=== PATIENT | male | born 1945 | race Caucasian/White ===

== ENCOUNTER 2021-02-21 07:17 | Emergency (ER) | payer BC, SELFPAY ==
[2021-02-21 07:29] VITALS: BP 206/110; PULSE 101; RESP 18; TEMP 36.9; O2SAT 98; BMI 37.3
--- NOTE | 2021-02-21 07:29 | ED_ITS ---
HPI - Male Genitourinary General Chief complaint: Urogenital-Male Stated complaint: URINARY RETENTION Time Seen by Provider: 02/21/21 07:27 Source: patient Mode of arrival: ambulatory Limitations: no limitations History of Present Illness HPI Narrative: 75 yo male with hx of BPH and needing to self cath at home but last episode was 1 year ago - he is not on AC therapy, last void 6 hours ago c/o suprapubic pain and pressure states he has catheters at home he did try but was unsuccessful and he noted blood MD Complaint: other (urinary retention) Onset (ago): hour(s) (6) Duration: constant Location: abdomen Severity: moderate Quality: aching and dull Relieving factors: none Exacerbating factors: none Context: other (BPH and episodes of urinary retention) Associated symptoms: Reports urinary retention Related Data Previous Rx's Medication Instructions Recorded levofloxacin 250 mg PO DAILY 6 Days #6 tab 02/21/21 Allergies Allergy/AdvReac Type Severity Reaction Status Date / Time No Known Allergies Allergy Verified 02/21/21 07:27 Review of Systems Review of Systems: Constitutional : No Weight loss, No Fever, No Chills, No Fatigue, No Malaise ENT/Mouth : No sore throat, No Rhinorrhea Eyes: No Eye Pain, No Swelling, No Redness Cardiovascular : No Chest Pain, No SOB, No Dyspnea on Exertion, No Orthopnea, No Edema, No Palpitations Respiratory : No Cough, No Sputum, No Wheezing Gastrointestinal : No Nausea, No Vomiting, No Diarrhea, No Constipation, pos abdominal Pain, No Hematochezia, No Melena Genitourinary : No Dysuria, No Urinary Frequency, No Hematuria, pos retention Musculoskeletal : No joint pain, No Myalgias, No Joint Swelling Skin : No Skin Lesions, No rash Neuro : No Weakness, No Numbness, No Dizziness, No Headache All other systems reviewed and are negative [facility] Past Medical History Attestation statement: The following information was validated with the patient. Medical History (Updated 02/21/21 @ 14:20 by Layla Barnes DO) BPH (benign prostatic hyperplasia) HTN (hypertension) Urinary retention Social History Social History (Updated 02/21/21 @ 07:30 by Layla Barnes DO) Alcohol intake: never Smoking Status: Never smoker Use of substances other than those prescribed or required for medical reasons: No Advance Directives: No Advance Directives Information Provided: No Physical Exam Vital Signs: Vital Signs: Last Vital Signs Temp 98.5 F 02/21/21 11:09 Pulse 117 H 02/21/21 11:09 Resp 18 02/21/21 11:09 BP 174/86 H 02/21/21 11:09 Pulse Ox 98 02/21/21 11:09 Body Mass Index 37.3 Appearance: Alert. Oriented X3. No acute distress. Eyes: Pupils equal, round and reactive to light. ENT: Pharynx normal. Neck: Normal inspection. Neck supple. CVS: Normal heart rate and rhythm. Pulses normal. Respiratory: No respiratory distress. Breath sounds normal. Abdomen: Soft and fullness noted suprapubically with ttp in suprapubic region Skin: Skin warm and dry. Normal skin color. Normal skin turgor. Extremities: No lower extremity edema. No calf ttp Neuro: Oriented X 3. No motor deficit. No sensory deficit. Course Course Course Narrative: call to [facility]amy unable to pass peraza patient did try to cath at home and had blood noted concern for false track Urology unable to place in ED initially, plan to return for further management peraza in place, draining pain improved, will treat with empiric antibiotics given instrumentation, urine is clearing up no clots, minimal pink MDM - Male Genitourinary MDM Narrative Medical decision making narrative: 75 yo male with hx of BPH and needing to self cath at home but last episode was 1 year ago - he is not on AC therapy, last void 6 hours ago c/o suprapubic pain and pressure - labs, UA, peraza ordered, lidocaine ordered as well, dispo per results and findings. Lab Data Result diagrams: 02/21/21 08:25 02/21/21 08:25 Labs: Lab Results 02/21/21 02/21/21 02/21/21 Range/Units 08:25 08:25 08:25 WBC 7.9 (4.8-10.8) X10*3/uL RBC 5.10 (4.60-5.80) X10*6/uL Hgb 14.2 (14.0-18.0) g/dl Hct 43.7 (42-52) % MCV 85.7 (80-98) fL MCH 27.8 (27.0-33.0) pg MCHC 32.5 (31.0-36.0) g/dl RDW 14.2 (11.0-16.0) % Plt Count 180 (160-400) X10*3/uL MPV 9.2 L (9.4-12.4) fL Immature Gran % (Auto) 0.4 (0.0-0.4) % Neut % (Auto) 87.1 H (45-73) % Lymph % (Auto) 6.2 L (20-40) % [place] % (Auto) 5.3 (2-11) % Eos % (Auto) 0.6 (0-4) % Baso % (Auto) 0.4 (0-2) % Lymph # (Auto) 0.5 L (1.2-4.9) X10*3/uL [place] # (Auto) 0.4 (0.1-1.2) X10*3/uL Eos # (Auto) 0.1 (0.0-0.4) X10*3/uL Baso # (Auto) 0.0 (0.0-0.2) X10*3/uL Abs Immat Gran (auto) 0.03 (0.00-0.03) X10*3/uL Absolute Neuts (auto) 6.9 (2.0-8.3) X10*3/uL Absolute Nucleated RBC 0.000 (0.0-0.012) X10*3/uL Nucleated RBC % (auto) 0.0 (0.0-0.2) /100WBC Smear Tech's Comments VERIFIED Hold Blue Top SEE NOTE Sodium 141 (135-145) mmol/L Potassium 4.7 (3.3-5.1) mmol/L Chloride 105 (96-108) mmol/L Carbon Dioxide 26 (22-29) mmol/L Anion Gap 15 (12-20) BUN 18 H (9-16) mg/dL Creatinine 1.25 (0.5-1.4) mg/dL Estim Creat Clear Calc 67.7 Estimated GFR 57 Random Glucose 175 H (60-115) mg/dL Calcium 9.5 (8.4-10.2) mg/dL Urine Color Urine Appearance Urine pH (5.0-8.0) Ur Specific [place] (1.005-1.025) Urine Protein (NEG-TRACE) MG/DL Urine Glucose (UA) (NEG) MG/DL Urine Ketones (NEG) MG/DL Urine Blood (NEG) Urine Nitrite (NEG) Ur Leukocyte Esterase (NEG) Urine RBC (0) /HPF Urine WBC (0-4) /HPF Ur Squamous Epith Cells /LPF Urine Bacteria /LPF 02/21/21 Range/Units 13:19 WBC (4.8-10.8) X10*3/uL RBC (4.60-5.80) X10*6/uL Hgb (14.0-18.0) g/dl Hct (42-52) % MCV (80-98) fL MCH (27.0-33.0) pg MCHC (31.0-36.0) g/dl RDW (11.0-16.0) % Plt Count (160-400) X10*3/uL MPV (9.4-12.4) fL Immature Gran % (Auto) (0.0-0.4) % Neut % (Auto) (45-73) % Lymph % (Auto) (20-40) % [place] % (Auto) (2-11) % Eos % (Auto) (0-4) % Baso % (Auto) (0-2) % Lymph # (Auto) (1.2-4.9) X10*3/uL [place] # (Auto) (0.1-1.2) X10*3/uL Eos # (Auto) (0.0-0.4) X10*3/uL Baso # (Auto) (0.0-0.2) X10*3/uL Abs Immat Gran (auto) (0.00-0.03) X10*3/uL Absolute Neuts (auto) (2.0-8.3) X10*3/uL Absolute Nucleated RBC (0.0-0.012) X10*3/uL Nucleated RBC % (auto) (0.0-0.2) /100WBC Smear Tech's Comments Hold Blue Top Sodium (135-145) mmol/L Potassium (3.3-5.1) mmol/L Chloride (96-108) mmol/L Carbon Dioxide (22-29) mmol/L Anion Gap (12-20) BUN (9-16) mg/dL Creatinine (0.5-1.4) mg/dL Estim Creat Clear Calc Estimated GFR Random Glucose (60-115) mg/dL Calcium (8.4-10.2) mg/dL Urine Color PINK Urine Appearance CLOUDY Urine pH 6.5 (5.0-8.0) Ur Specific [place] 1.015 (1.005-1.025) Urine Protein 2+ H (NEG-TRACE) MG/DL Urine Glucose (UA) NEG (NEG) MG/DL Urine Ketones NEG (NEG) MG/DL Urine Blood 3+ H (NEG) Urine Nitrite NEG (NEG) Ur Leukocyte Esterase NEG (NEG) Urine RBC TNTC H (0) /HPF Urine WBC 1-4 (0-4) /HPF Ur Squamous Epith Cells NONE /LPF Urine Bacteria NONE /LPF Discharge Plan Discharge Clinical Impression: Urinary retention BPH (benign prostatic hyperplasia) Qualifiers: Lower urinary tract symptom presence: symptoms present Lower urinary tract symptom detail: urinary retention Qualified Code(s): N40.1 - Benign prostatic hyperplasia with lower urinary tract symptoms Patient Disposition: Home, Self-Care Instructions: Urinary Retention in Men (ED), Enlarged Prostate (BPH) (ED), Peraza Catheter Placement and Care (ED) Additional Instructions: if you develop worsening bleeding, blockage of catheter from blood clots or increased pain, fevers please return Prescriptions: New levofloxacin 250 mg tablet 250 mg PO DAILY 6 Days Qty: 6 RF: 0 Referrals: Lowell Bellamy MD [Physician] - 1 week
[2021-02-21] MEDS: Lidocaine HCl 2 % Urojet 10 ML JEL.PF.APP TOPICAL ×2 (07:46→08:43)
[2021-02-21 08:30] LABS: Basophils Percent Auto 0.4 % (0-2); Eosinophils Absolute Auto 0.1 X10*3/uL (0.0-0.4); Eosinophils Percent Auto 0.6 % (0-4); Hematocrit 43.7 % (42-52); Hemoglobin 14.2 g/dl (14.0-18.0); Imm Gran Abs Auto 0.03 X10*3/uL (0.00-0.03); Imm Gran Pct Auto 0.4 % (0.0-0.4); Lymphocytes Absolute Auto 0.5 X10*3/uL (1.2-4.9); Lymphocytes Percent Auto 6.2 % (20-40); MANUAL DIFF FLAG SCAN; Mean Corpuscular HGB Conc 32.5 g/dl (31.0-36.0); Mean Corpuscular Hemoglobin 27.8 pg (27.0-33.0); Mean Corpuscular Volume 85.7 fL (80-98); Mean Platelet Volume 9.2 fL (9.4-12.4); Monocytes Absolute Auto 0.4 X10*3/uL (0.1-1.2); Monocytes Percent Auto 5.3 % (2-11); Neutrophils Absolute Auto 6.9 X10*3/uL (2.0-8.3); Neutrophils Percent Auto 87.1 % (45-73); Platelet Count 180 X10*3/uL (160-400); Red Cell Distribution Width 14.2 % (11.0-16.0); SCAN SMEAR FLAG 1; White Blood Count 7.9 X10*3/uL (4.8-10.8)
[2021-02-21] MEDS: HYDROmorphone HCl 0.5 MG/0.5 ML SYRINGE IVPUSH (08:30)
--- NOTE | 2021-02-21 08:43 | PC.NURSE ---
pt attempted for urinary catheter multiple times, no return and lot of blood. pt sts taking aspirin last night. having pain. iv placed and blood labs obtained and sent. medicated per emar. dr saavedra at bedside to attempt urinary cath, unsuccessful. dr saavedra will return this afternoon w cysto scope to attempt cath placement.
[2021-02-21 08:52] LABS: Anion Gap 15 (12-20); Blood Urea Nitrogen 18 mg/dL (9-16); Calcium 9.5 mg/dL (8.4-10.2); Carbon Dioxide 26 mmol/L (22-29); Chloride 105 mmol/L (96-108); Creatinine Clr Calc Pharmacy 67.7; Estimated Glomerular Filt Rate 57; Glucose Random 175 mg/dL (60-115); Potassium 4.7 mmol/L (3.3-5.1); Sodium 141 mmol/L (135-145)
[2021-02-21 09:03] LABS: SLIDE REVIEW VERIFIED
[2021-02-21] MEDS: HYDROmorphone HCl 1 MG/ML SYRINGE IVPUSH (10:15)
--- NOTE | 2021-02-21 10:57 | PC.NURSE ---
pt updated via phone w permission.
[2021-02-21 11:09] VITALS: BP 174/86; PULSE 117; RESP 18; TEMP 36.9; O2SAT 98
--- NOTE | 2021-02-21 13:26 | PM.UROCN ---
History of Present Illness Consult details Consult date: 02/21/21 Narrative: Yoshi is a 75-year-old male I was asked to see him since they were unable to place a Morton catheter Trial of 14 Rwandan catheter appears to have some type of obstruction in proximal portion bladder neck Cystoscopy performed bedside Wire placed in the bladder [place] tip 16 [place]an placed with 1200 cc of urine output Follow-up in 2 weeks for voiding trial PMFSH Past Medical History Medical History (Updated 02/21/21 @ 13:27 by Lowell Bellamy MD) BPH (benign prostatic hyperplasia) HTN (hypertension) Urinary retention Social History Social History (Updated 02/21/21 @ 07:30 by Layla Barnes DO) Alcohol intake: never Smoking Status: Never smoker Use of substances other than those prescribed or required for medical reasons: No Advance Directives: No Advance Directives Information Provided: No Meds Allergies Allergy/AdvReac Type Severity Reaction Status Date / Time No Known Allergies Allergy Verified 02/21/21 07:27 Physical Exam Vital Signs: Vital Signs: Last Vital Signs Temp 98.5 F 02/21/21 11:09 Pulse 117 H 02/21/21 11:09 Resp 18 02/21/21 11:09 BP 174/86 H 02/21/21 11:09 Pulse Ox 98 02/21/21 11:09 Body Mass Index 37.3 Const: General: cooperative, healthy appearing, comfortable and no acute distress Nutritional Appearance: average body habitus Orientation/consciousness: oriented to person, oriented to place and oriented to time Eyes: General: appearance normal, both eyes and all related structures Chest: Chest palpation & inspection: normal inspection of the chest Resp: Effort & Inspection: normal respiratory effort Cardio: Rate: regular rate GI: Inspection: Yes normal to inspection Skin: Hair: normal Neuro: General: oriented to person, oriented to place and oriented to time Extrem: General: Yes normal to inspection Results Labs Result diagrams: 02/21/21 08:25 02/21/21 08:25 Labs: Abnormal lab results 02/21/21 02/21/21 Range/Units 08:25 08:25 MPV 9.2 L (9.4-12.4) fL Neut % (Auto) 87.1 H (45-73) % Lymph % (Auto) 6.2 L (20-40) % Lymph # (Auto) 0.5 L (1.2-4.9) X10*3/uL BUN 18 H (9-16) mg/dL Random Glucose 175 H (60-115) mg/dL Short CBC 02/21/21 Range/Units 08:25 WBC 7.9 (4.8-10.8) X10*3/uL Hgb 14.2 (14.0-18.0) g/dl Hct 43.7 (42-52) % Plt Count 180 (160-400) X10*3/uL BMP 02/21/21 08:25 Sodium 141 Potassium 4.7 Chloride 105 Carbon Dioxide 26 BUN 18 H Creatinine 1.25 Calcium 9.5 All other labs normal. Assessment and Plan (1) Urinary retention: Status: Acute (2) BPH (benign prostatic hyperplasia): Status: Acute Start finasteride and Flomax Follow-up in 2 weeks in office for voiding trial Procedures Catheter Insertion (Urinary) Date of insertion: 02/21/21 Reason for placing: Acute urinary retention Bladder scan/ultrasound used before catheterization: Yes Antiseptic solution prep: Povidone-Iodine Catheter type/location: 2-way Urethral Complications: Cystoscopy performed - false passage - large prostate Comment: cpt [id number]
[2021-02-21 13:28] LABS: Appearance Urine CLOUDY; Color Urine PINK; Glucose Urine UA NEG (NEG); Leukocyte Esterase Urine NEG (NEG); Nitrite Urine NEG (NEG); PH 6.5 (5.0-8.0); Specific Gravity - Urine 1.015 (1.005-1.025); Urine Blood 3+ (NEG); Urine Ketones NEG (NEG); Urine Protein 2+ MG/DL (NEG-TRACE)
[2021-02-21 13:48] LABS: RBC Urine TNTC /HPF (0)
[2021-02-21] MEDS: cefTRIAXone sodium 1 GM in 0.9 % Sodium Chloride 50 ML IV (14:15)
== END 2021-02-21 15:22 | disposition home or self-care (01) ==
PROVIDERS: Emergency Provider Emergency Medicine; PCP Internal Medicine
DX: N40.1 Benign prostatic hyperplasia with lower urinary tract symptoms (principal); R33.9 Retention of urine, unspecified; Z79.899 Other long term (current) drug therapy
CPT/HCPCS: 36415; 80048; 81001; 85025; 96365; 96366; 96375; 99283; 99285; J0696; J1170

== ENCOUNTER 2021-03-04 00:33 | Emergency (ER) | payer BC, SELFPAY ==
[2021-03-04 01:59] VITALS: BP 197/115; PULSE 107; RESP 18; TEMP 36.8; O2SAT 98; BMI 34.2
--- NOTE | 2021-03-04 02:04 | ED_ITS ---
HPI - General Adult General Chief complaint: General Medical Stated complaint: Urinary retention Time Seen by Provider: 03/04/21 02:04 Source: patient Mode of arrival: ambulatory Limitations: no limitations History of Present Illness HPI narrative: Patient with Morton catheter for last few weeks for enlarged prostate today by mistake he pulled out the catheter little bit and noticed blood in the tube now is not getting any urine out and feel bladder is full when he arrived bladder scan showed 750 cc of urine and in Morton catheter tube for some blood clots Related Data Previous Rx's Medication Instructions Recorded levofloxacin 250 mg PO DAILY 6 Days #6 tab 02/21/21 Allergies Allergy/AdvReac Type Severity Reaction Status Date / Time No Known Allergies Allergy Verified 02/21/21 07:27 Review of Systems Review of Systems: Yes all other systems are reviewed and are negative [facility] Past Medical History Medical History BPH (benign prostatic hyperplasia) HTN (hypertension) Urinary retention Social History Social History Alcohol intake: never Smoking Status: Never smoker Use of substances other than those prescribed or required for medical reasons: No Advance Directives: No Physical Exam Vital Signs: Vital Signs: Last Vital Signs Temp 98.2 F 03/04/21 01:59 Pulse 85 03/04/21 04:00 Resp 15 03/04/21 04:00 BP 160/96 H 03/04/21 04:00 Pulse Ox 98 03/04/21 04:00 Body Mass Index 34.2 Appearance: Alert. Oriented X3. No acute distress. Eyes: Pupils equal, round and reactive to light. ENT: Pharynx normal. Neck: Normal inspection. Neck supple. CVS: Normal heart rate and rhythm. Pulses normal. Respiratory: No respiratory distress. Breath sounds normal. Abdomen: Soft and nontender. Bowel sounds are present, no mass palpable, no CVA tenderness : Morton catheter in place with blood clot in catheter tube suprapubic tenderness+ Skin: Skin warm and dry. Normal skin color. Normal skin turgor. Extremities: + lower extremity edema. Neuro: Oriented X 3. No motor deficit. No sensory deficit. Procedures Catheter Insertion (Urinary) Date of insertion: 03/04/21 Reason for placing: Yes Reason for placing indwelling catheter: Acute urinary retention Bladder scan/ultrasound used before catheterization: Yes Estimated amount of urine (mLs): 784 Antiseptic solution prep: Povidone-Iodine Topical anesthesia used: Yes Catheter type/location: 3-way Urethral Size (Armenian): 24 Catheter balloon size (mL): 30 Catheter balloon amount: 30 Results: successfully catheterized-immediate flow and retried with different size/type catheter Procedure performed: without complications Comment: Using sureglide guidewire [address] catheter was inserted Medical Decision Making MDM Narrative Medical decision making narrative: Patient with traumatic urethral injury from pulling of Morton catheter using sureglide guidewire 3 with for catheter was adama lisbeth and bladder irrigated after irrigation fluid is pinkish no blood clot noticed. Will advise patient to follow-up with urologist continue to drink plenty of water Discharge Plan Discharge Clinical Impression: Gross hematuria Patient Disposition: Home, Self-Care Instructions: Morton Catheter Placement and Care (ED), Hematuria (ED) Additional Instructions: Drink plenty of water care of Morton catheter as advised. Follow-up with your urologist tomorrow Prescriptions: No Action levofloxacin 250 mg tablet 250 mg PO DAILY 6 Days Qty: 6 RF: 0 Referrals: Lowell Bellamy MD [Physician] - 1 day Interventions: ED Discharge Assessment Last Done: 03/04/21 05:12 Discharge Date/Time: 03/04/21 05:20
[2021-03-04] MEDS: Lidocaine HCl 2 % Urojet 10 ML JEL.PF.APP TOPICAL (02:45)
--- NOTE | 2021-03-04 03:47 | PC.NURSE ---
Patient came in because his catheter was not draining. Catheter had no urine and bag had red blood in it. Patient stated when he was taking the bag off his leg it tugged on the catheter and since that time he was not draining. Patient was bladder scanned and had 782 ml's of urine in bladder. Catheter removed and three way catheter placed. Initial output after placement was 1000ml of blood. Per MD bladder was irrigated and blood cleared up quickly
[2021-03-04 04:00] VITALS: BP 160/96; PULSE 85; RESP 15; O2SAT 98
== END 2021-03-04 05:20 | disposition home or self-care (01) ==
PROVIDERS: Emergency Provider Internal Medicine; PCP Internal Medicine
DX: T83.83XA Hemorrhage due to genitourinary prosthetic devices, implants and grafts, initial encounter (principal); X58.XXXA Exposure to other specified factors, initial encounter; R31.0 Gross hematuria; Z46.6 Encounter for fitting and adjustment of urinary device; Z96.0 Presence of urogenital implants
CPT/HCPCS: 51702; 51798; 99284; 99285

== ENCOUNTER → 2021-03-12 11:19 | Outpatient (BNVA) | payer BC, SELFPAY | PROVIDERS: PCP Internal Medicine; Visit Provider Urology | DX: N40.1 Benign prostatic hyperplasia with lower urinary tract symptoms (principal); R33.8 Other retention of urine | CPT/HCPCS: 51700; 51798 ==

== ENCOUNTER → 2021-08-07 08:36 | Outpatient (BNVA) | payer BC, SELFPAY | PROVIDERS: Visit Provider Urology | DX: N40.1 Benign prostatic hyperplasia with lower urinary tract symptoms (principal); R33.8 Other retention of urine | CPT/HCPCS: 51798 ==

== ENCOUNTER 2021-10-20 07:48 | Day surgery (SDC) | payer BC, SELFPAY ==
[2021-10-13 13:07] VITALS: BMI 34.2
--- NOTE | 2021-10-17 12:11 | P.CONAN_ITS ---
Documented by User: Mary Bledsoe NP 10/17/21 12:12 HPI - Anesthesia Eval Consult details Narrative: 76yo M for Laser Ablation Prostate w/Green Light PMFSH Active Problems Active Problems: All Active Problems (Updated 09/15/21 @ 14:03 by Edyta Haddad RN) BPH (benign prostatic hyperplasia) (Acute) Urinary retention (Acute) Past Medical History Medical History (Updated 10/20/21 @ 08:08 by Cristiana Kumar RN) BPH (benign prostatic hyperplasia) Diabetes HTN (hypertension) On beta vince at home Urinary retention Surgical History Surgical History (Updated 10/20/21 @ 08:09 by Cristiana Kumar, ELZA) Hx of aortic valve replacement Social History Social History Alcohol intake: never Patient Tobacco Use Status: Never used Tobacco Use of substances other than those prescribed or required for medical reasons: No Are you DNR?: No Advance Directives: No Advance Directives Information Provided: Yes Meds Allergies Allergy/AdvReac Type Severity Reaction Status Date / Time No Known Allergies Allergy Verified 10/20/21 08:09 Home Medications Medication Instructions Recorded Confirmed Last Taken Type amlodipine 5 mg tablet 5 mg PO DAILY 03/12/21 09/15/21 Unknown History doxazosin 8 mg tablet 16 mg PO DAILY 03/12/21 09/15/21 Unknown History lisinopril 40 mg tablet 40 mg PO DAILY 03/12/21 09/15/21 10/20/21 06:00 History metformin 500 mg tablet,extended 500 mg PO DAILY 03/12/21 09/15/21 10/20/21 06:00 History release 24 hr Exam Exam Date and Time: October 17, 2021 1211 Height,Weight and Vital Signs: Height 5 ft 11 in Weight 111.13 kg Pertinent Lab Results Pertinent Lab Results: Laboratory Tests 02/21/21 02/21/21 08:25 08:25 WBC 7.9 Hgb 14.2 Hct 43.7 Plt Count 180 Sodium 141 Potassium 4.7 Chloride 105 Carbon Dioxide 26 BUN 18 H Creatinine 1.25 Assessment and Plan Assessment Anesthesia Assessment: Chart Reviewed Documented by User: Fernanda Multani MD 10/20/21 08:29 [facility] Past Medical History Medical History (Updated 10/20/21 @ 08:08 by Cristiana Kumar RN) BPH (benign prostatic hyperplasia) Diabetes HTN (hypertension) On beta vince at home Urinary retention Family History Family history of problems with anesthesia: No Surgical History Surgical History (Updated 10/20/21 @ 08:09 by Cristiana Kumar RN) Hx of aortic valve replacement History of Problems with Anesthesia: No Social History Social History Alcohol intake: never Patient Tobacco Use Status: Never used Tobacco Use of substances other than those prescribed or required for medical reasons: No Are you DNR?: No Advance Directives: No Advance Directives Information Provided: Yes Meds Allergies Allergy/AdvReac Type Severity Reaction Status Date / Time No Known Allergies Allergy Verified 10/20/21 08:09 Home Medications Medication Instructions Recorded Confirmed Last Taken Type amlodipine 5 mg tablet 5 mg PO DAILY 03/12/21 09/15/21 Unknown History doxazosin 8 mg tablet 16 mg PO DAILY 03/12/21 09/15/21 Unknown History lisinopril 40 mg tablet 40 mg PO DAILY 03/12/21 09/15/21 10/20/21 06:00 History metformin 500 mg tablet,extended 500 mg PO DAILY 03/12/21 09/15/21 10/20/21 06:00 History release 24 hr Exam Airway Mallampati Class: II TM Dist: >3cm Neck ROM: Full Heart: rrr Lungs: cta Assessment and Plan Assessment Anesthesia Assessment: Anesthesia Plan Discussed and Chart Reviewed Final Anesthetic Review Family History of Problems with Anesthesia: No History of Problems with Anesthesia: No NPO: Yes ASA Class: II Final Preanesthetic Review: No Changes in Pt Med Stat, Meds/Allgs Chart Reviewed and Consent Obtained/Reviewed Patient Risk: Intermediate Procedure Risk: Intermediate Anesthetic Plan Anesthetic Plan: GA Disposition: Standard PACU
[2021-10-20] VITALS (7 sets, daily range): BP systolic 148–168; BP diastolic 87–99; PULSE 78–96; RESP 16–17; TEMP 36.5–36.6; O2SAT 93–99
[2021-10-20] MEDS: Lactated Ringers 1,000 ML 100 ML IVCONT (08:38)
[2021-10-20 08:44] LABS: Glucose, Whole Blood 131 mg/dL (60-115)
--- NOTE | 2021-10-20 09:24 | MHC.SHP ---
Pre-Procedural Eval Section A Date of Service: 10/20/21 The patient is an INPATIENT: No Changes since office visit: No Cold of Flu in the past 2 weeks, No New Medical Problems, No Changes in Medication and No Patient answered all questions The History & Physical has been completed within 30 days and I have reviewed it.: No Section B Chief Complaint: BPH Details of Present Illness: green light laser prostatectomy Relevant Family History (Specify if Yes): No Relevant Social History: None Present Medications: see Short Stay Collaborative assessment Medical History: No relevant PMH History of Previous Operations: No relevant previous surgery Allergies: Allergies Allergy/AdvReac Type Severity Reaction Status Date / Time No Known Allergies Allergy Verified 10/20/21 08:09 Review of Systems Sugical H&P ROS: Negative: Constitution, Cardiovascular, Respiratory, Neurological, Psychiatric, Hem-Onc, Allergic/Immunologic, Gastrointestinal, Genitourinary, Musculoskeletal, Integumentary, Endocrine and Eyes/Ears/Nose/Throat Exam Surgical H&P Exam: Normal: HEENT, Normal: Heart, Normal: Lungs, Normal: Extremities, Normal: Abdomen, Normal: Skin and Normal: Neurological Plan Diagnosis/Plan: Unchanged (green light laser prostatectomy) I have reviewed the history and physical and performed a pertinent physical examination on my patient. No changes have occurred unless specified.
--- NOTE | 2021-10-20 11:29 | W.PM.OPN ---
Operative Note Operative Note Date of Service: 10/20/21 Narrative: PreOperative Diagnosis: Bladder outlet obstruction Post Operative Diagnosis: Bladder outlet obstruction Procedure: GreenLight laser enucleation of the prostate modifier 22 100% longer than typical time Surgeon: Dr Lowell Bellamy Anesthesia: General Indications for procedure: History of bladder outlet obstruction. Treated with alpha-vince and other medications. Still with symptoms. On cystoscopy in office has hypertrophy with very large median lobe and lateral lobes to his prostate. Recommendation for prostate procedure with laser enucleation of prostate. It has been discussed. Focus was placed on development of retrograde examination which is a normal part of this procedure. Procedure: After informed consent was verified the patient was brought to the operating room and placed in a supine position. Anesthesia was administered per protocol. Patient was placed in modified dorsal lithotomy position and prepped and draped in a sterile fashion. Safety pause time-out was confirmed. Antibiotics have been given. Twenty-four Nigerien laser cystoscope was inserted per urethra. No abnormalities found the anterior posterior urethra. The bladder was filled on both ureteric orifices were seen in normal position away from our area of interest. Rather than start with the median lobe as is typical we started with the left lateral lobe in order to make space since the ureteric orifices came very close to the large median lobe. We started with the patient's left lateral lobe. Firstly the 05:00 o'clock groove was further developed. This was moved in the lateral position to undermine the tissue on the lateral side. Focus was then placed on the laser at the 1 o'clock position in developing a secondary groove down to the level of bladder fibers. The intervening tissue between these 2 grooves was removed with a combination of enucleation ablation working from the apex toward the bladder neck. We were careful to use a power of 80 around the bladder neck and then expanded up to as high as 180 for the ablation of the lateral lobe tissue. A similar procedure was repeated on the patient's right-hand side. This was extremely large and had both prominent tissue and a long intra prostatic urethra. Once the 2 lateral lobes had been taken down we were able to easily define the ureteric orifices bilaterally and stay away from these as we carefully enucleated and ablated the median lobe. Using a GreenLight laser settings of 80 w incisions were made at the 5 and 7 o'clock position. They were taken down and then laterally on each side. They were brought from the bladder neck down to the level of the veru. These defined the lateral aspects of the median lobe area. The median lobe was divided in half running down the midline with a now the incision but for each segment of lobe was enucleated in ablated. When this was completed debris and pieces of prostate removed from the bladder. Both ureteric orifices were reviewed again in shown to be patent in away from any areas of energy damage. The apical area was reviewed in any stray ooze was controlled. A 22 Nigerien 30 cc balloon Morton catheter was placed over stylet into the bladder. Efflux was irrigated clear. 50 cc was placed in the balloon and gentle traction was placed. A snap was used to hold tension once the patient will be moved and transported. Once transportation its finish this novel be removed. A belladonna and opiate suppository was placed for postprocedure pain management. He tolerated procedure well was extubated in the operating and transferred in a stable condition to the recovery area. Total energy 502,000, lasing time1:00:44 seconds - this is 100% longer than typical with 2 times as much energy. Pathology: Prostate tissue Drains: Morton catheter
[2021-10-20] MEDS: Acetaminophen 325 MG TABLET 650 MG PO (11:56)
== END 2021-10-20 13:16 | disposition home or self-care (01) ==
PROVIDERS: PCP Internal Medicine; Visit Provider Urology
PROC: (CPT 52648; principal; 2021-10-20 09:50)
DX: N40.1 Benign prostatic hyperplasia with lower urinary tract symptoms (principal); N13.8 Other obstructive and reflux uropathy; R33.8 Other retention of urine; I10 Essential (primary) hypertension; E11.9 Type 2 diabetes mellitus without complications; Z95.2 Presence of prosthetic heart valve; Z79.899 Other long term (current) drug therapy
CPT/HCPCS: 52649; 82947; 88305; J1956; J2405; J3010

== ENCOUNTER → 2021-10-23 09:38 | Outpatient (BNVA) | payer BC, SELFPAY | PROVIDERS: PCP Internal Medicine; Visit Provider Urology | DX: N40.1 Benign prostatic hyperplasia with lower urinary tract symptoms (principal); R33.9 Retention of urine, unspecified | CPT/HCPCS: 51700; 51798 ==

== ENCOUNTER → 2021-12-09 08:34 | Outpatient (BNVA) | payer BC, SELFPAY | PROVIDERS: Visit Provider Urology | DX: N40.1 Benign prostatic hyperplasia with lower urinary tract symptoms (principal); R33.8 Other retention of urine | CPT/HCPCS: 51798 ==

== ENCOUNTER 2022-03-10 10:27 | Outpatient (REF) | payer BC, SELFPAY ==
[2022-03-10 12:50] LABS: Prostate Specific Antigen 9.92 ng/mL (<0.05-4.0)
== END 2022-03-10 10:28 | disposition home or self-care (01) ==
LOC: HO.LAB 10:27
PROVIDERS: PCP Internal Medicine; Visit Provider Urology
DX: N40.1 Benign prostatic hyperplasia with lower urinary tract symptoms (principal); R33.8 Other retention of urine; Z12.5 Encounter for screening for malignant neoplasm of prostate
CPT/HCPCS: 36415; 84153

== ENCOUNTER → 2022-03-18 13:37 | Outpatient (BNVA) | payer BC, SELFPAY | PROVIDERS: PCP Internal Medicine; Visit Provider Urology | DX: N40.0 Benign prostatic hyperplasia without lower urinary tract symptoms (principal) ==

== ENCOUNTER 2022-08-08 10:09 | Outpatient (REF) | payer BC, SELFPAY ==
[2022-08-08 11:45] LABS: PSA,Total (Free>4and<10) 12.75 ng/mL (0.00-4.00)
== END 2022-08-08 10:10 | disposition home or self-care (01) ==
LOC: HO.LAB 10:09
PROVIDERS: PCP Internal Medicine; Visit Provider Urology
DX: R97.20 Elevated prostate specific antigen [PSA] (principal); Z12.5 Encounter for screening for malignant neoplasm of prostate
CPT/HCPCS: 36415; 84153

== ENCOUNTER 2022-08-14 14:40 | Outpatient (REF) | payer BC, SELFPAY | END 2022-08-14 14:41 | disposition home or self-care (01) | LOC: HO.LAB 14:40 | PROVIDERS: PCP Internal Medicine; Visit Provider Urology | DX: N39.0 Urinary tract infection, site not specified (principal); R97.20 Elevated prostate specific antigen [PSA] | CPT/HCPCS: 51798 ==

== ENCOUNTER 2022-12-25 15:11 | Outpatient (REF) | payer BC, SELFPAY ==
[2022-12-25 16:44] LABS: Prostate Specific Antigen 4.92 ng/mL (<0.05-4.0)
== END 2022-12-25 15:12 | disposition home or self-care (01) ==
LOC: HO.LAB 15:11
PROVIDERS: PCP Internal Medicine; Visit Provider Urology
DX: Z12.5 Encounter for screening for malignant neoplasm of prostate (principal); N39.0 Urinary tract infection, site not specified; R97.20 Elevated prostate specific antigen [PSA]
CPT/HCPCS: 36415; 84153; 87086

== ENCOUNTER → 2022-12-30 15:23 | Outpatient (BNVA) | payer BC, SELFPAY | PROVIDERS: PCP Internal Medicine; Visit Provider Urology | DX: Z13.89 Encounter for screening for other disorder (principal) ==

== ENCOUNTER → 2023-01-20 13:26 | Outpatient (BNVA) | payer BC, SELFPAY | PROVIDERS: PCP Internal Medicine; Visit Provider Internal Medicine Cardiovascular Disease | DX: I48.20 Chronic atrial fibrillation, unspecified (principal); R06.09 Other forms of dyspnea | CPT/HCPCS: 93005 ==

== ENCOUNTER → 2023-04-06 08:44 | Outpatient (REF) | payer BC, SELFPAY ==
--- NOTE | 2023-04-06 08:47 | CA_ITS ---
Transthoracic Echocardiogram Patient (Last, First, Middle): Yoshi Angeles, Gender: Male Date of : 1945 Age: 77 Procedure Date: 04/06/2023 Procedure Type: Transthoracic Echocardiogram Location: OP Height: 177.8 cm Weight: 104.33 kg BSA: 2.22 m2 Heart Rate: 95 bpm BP: 148 / 88 mmHg Hospital Nurse Liaison: SB Referring MD: Isaias Pitt MD Activities Officer: Isaias Pitt MD Symptoms: I48.20 - Chronic atrial fibrillation, unspecified Study Quality: Adequate w contrast/hx AVR ECG Rhythm: Atrial Fibrillation Conclusions: - Normal left ventricular cavity size. There is normal left ventricular wall thickness. The left ventricular systolic function is hyperdynamic. The visually estimated ejection fraction is >70%. - Mildly increased right ventricular cavity size. There is mildly decreased right ventricular systolic function. - The left atrium is moderately dilated. RA is dilated. - A bioprosthetic aortic valve is present. The prosthetic aortic valve appears to be functioning normally. There is no aortic valve regurgitation. - Significantly elevated right atrial pressure. Mild to moderate pulmonary hypertension is present. - There is moderate dilatation of the ascending aorta measuring 4.70 cm. Findings Procedure Information Contrast agent, definity, is being given per protocol without apparent complications. Left Ventricle Normal left ventricular cavity size. There is normal left ventricular wall thickness. The left ventricular systolic function is hyperdynamic. The visually estimated ejection fraction is >70%. There is no evidence of regional wall motion abnormalities. Diastolic function is indeterminate on the basis of available data. Right Ventricle Mildly increased right ventricular cavity size. There is mildly decreased right ventricular systolic function. Atria The left atrium is moderately dilated. RA is dilated. Aortic Valve A bioprosthetic aortic valve is present. The prosthetic aortic valve appears to be functioning normally. There is no aortic valve regurgitation. Mitral Valve The mitral valve appears normal. There is severe mitral annular calcification. There is trace mitral valve regurgitation. There is no mitral valve stenosis. Pulmonic Valve Normal pulmonic valve structure and function. There is trace pulmonic valve regurgitation. Tricuspid Valve Normal tricuspid valve structure. There is trace tricuspid valve regurgitation. Significantly elevated right atrial pressure. Mild to moderate pulmonary hypertension is present. Great Vessels There is moderate dilatation of the ascending aorta measuring 4.70 cm. The visualized portions of the pulmonary artery and branches are normal. Venous The inferior vena cava is dilated and collapses less than 50% with inspiration. Pericardium/Pleural There is no evidence of pericardial effusion. Prior Study Comparison No prior study available for comparison. Measurements 2D Linear Measurements IVSd: 1.30 0.6-0.9/0.6-1.0 cm LVIDd: 4.75 3.9-5.3/4.2-5.9 cm LVIDd Index: 2.14 2.4-3.2/2.2-3.1 cm/m2 LVIDs: 3.13 2.0-3.6 cm LVPWd: 0.89 0.7-1.1 cm LA Diam: 4.80 2.7-3.8/3.0-4.0 cm LAIDs Index: 2.16 1.5-2.3 cm/m2 LV Mass: 236.62 67-162/88-224 g LV Mass Index: 106.58 43-95/49-115 g/m2 LVOT Diam: 2.00 3.0+(-)1.3 cm 2D Systolic Function EF 4C: 74.40 >55% EF 2C: 64.80 >55% EF BiP: 71.00 >55% Mitral Valve MV VTI: 0.29 MV Pk Stone: 1.47 MV Mn Stone: 0.76 MV Pk Grad: 9.00 MV Mn Grad: 3.00 MV Pk E: 1.43 MV Decel Time: 183.00 MVA Continuity: 1.84 Aortic Valve AoV Pk Stone: 1.89 AoV Mn Stone: 1.25 AoV VTI: 0.33 AoV Pk Grad: 14.00 Aov Mn Grad: 7.00 JACQUELINE Cont.VTI: 1.60 LVOT LVOT Pk Stone: 0.91 LVOT Mn Stone: 0.66 LVOT VTI: 0.17 LVOT Pk Grad: 3.00 LVOT Mn Grad: 2.00 LVOT Diam: 2.00 LVOT Area: 3.14 Diastolic Function MV Pk E: 1.43 Right Ventricle TVS' Stone: 12.30 Tricuspid Valve TR Pk Stone: 2.74 TR Pk Grad: 30.00 RA Press: 15.00 RVSP: 45.00 Great Vessels Aorta Sinus of Valsalva: 3.60 2.0-3.5 cm Ao Asc: 4.70 2.1-3.4 cm Pulmonary Valve PV Pk Stone: 0.97 Peak PV Grad: 4.00 Updated in Other Vendor System with Status of Final Isaias Pitt MD electronically signed on 04/07/2023 7:31:12 PM with status of Final
== END ==
LOC: HO.CARD 08:44
PROVIDERS: PCP Internal Medicine; Visit Provider Internal Medicine Cardiovascular Disease
DX: I48.20 Chronic atrial fibrillation, unspecified (principal)
CPT/HCPCS: 93306; Q9957

== ENCOUNTER 2023-05-01 09:03 | Outpatient (REF) | payer BC, SELFPAY ==
--- NOTE | ~2023-05-01 | XR_ITS ---
EXAMINATION: Knee x-ray CLINICAL INFORMATION: Pain COMPARISON: None. TECHNIQUE: 3 views of each knee FINDINGS: Right: There is slight medial subluxation of the distal femur with respect to the proximal tibia. There is varus angulation. Bone alignment is otherwise normal. No fracture or dislocation. There is severe arthritis at the medial femoral tibial joint with a [id number] appearance. There are also osteophytes at the patellofemoral joint. There is an osteophyte at the quadriceps tendon insertion to the patella. Large joint effusion. Atherosclerotic disease. Left: Mild varus angulation. Bone alignment is otherwise normal. No fracture or dislocation. Severe joint space narrowing at the medial femoral tibial joint. Small osteophytes at the patellofemoral joint. Small osteophyte at the quadriceps tendon insertion to the patella. Small joint effusion. Atherosclerotic disease. XR/XR knee standing BI IMPRESSION: Bilateral varus angulation and arthritis, right greater than left. Large right knee joint effusion.
--- NOTE | ~2023-05-01 | XR_ITS ---
EXAMINATION: Knee x-ray CLINICAL INFORMATION: Pain COMPARISON: None. TECHNIQUE: 3 views of each knee FINDINGS: Right: There is slight medial subluxation of the distal femur with respect to the proximal tibia. There is varus angulation. Bone alignment is otherwise normal. No fracture or dislocation. There is severe arthritis at the medial femoral tibial joint with a [id number] appearance. There are also osteophytes at the patellofemoral joint. There is an osteophyte at the quadriceps tendon insertion to the patella. Large joint effusion. Atherosclerotic disease. Left: Mild varus angulation. Bone alignment is otherwise normal. No fracture or dislocation. Severe joint space narrowing at the medial femoral tibial joint. Small osteophytes at the patellofemoral joint. Small osteophyte at the quadriceps tendon insertion to the patella. Small joint effusion. Atherosclerotic disease. XR/XR knee LT 2V IMPRESSION: Bilateral varus angulation and arthritis, right greater than left. Large right knee joint effusion.
--- NOTE | ~2023-05-01 | XR_ITS ---
EXAMINATION: Knee x-ray CLINICAL INFORMATION: Pain COMPARISON: None. TECHNIQUE: 3 views of each knee FINDINGS: Right: There is slight medial subluxation of the distal femur with respect to the proximal tibia. There is varus angulation. Bone alignment is otherwise normal. No fracture or dislocation. There is severe arthritis at the medial femoral tibial joint with a [id number]-plhu appearance. There are also osteophytes at the patellofemoral joint. There is an osteophyte at the quadriceps tendon insertion to the patella. Large joint effusion. Atherosclerotic disease. Left: Mild varus angulation. Bone alignment is otherwise normal. No fracture or dislocation. Severe joint space narrowing at the medial femoral tibial joint. Small osteophytes at the patellofemoral joint. Small osteophyte at the quadriceps tendon insertion to the patella. Small joint effusion. Atherosclerotic disease. XR/XR knee RT 2V IMPRESSION: Bilateral varus angulation and arthritis, right greater than left. Large right knee joint effusion.
[2023-05-01 11:24] LABS: Blood Urea Nitrogen 17 mg/dL (9-16); Estimated Glomerular Filt Rate > 60
== END 2023-05-01 09:04 | disposition home or self-care (01) ==
LOC: HO.XRAY 09:03
PROVIDERS: PCP Internal Medicine; Visit Provider Radiology Vascular & Interventional Radiology
DX: R94.4 Abnormal results of kidney function studies (principal); R79.89 Other specified abnormal findings of blood chemistry; M25.561 Pain in right knee; M25.562 Pain in left knee
CPT/HCPCS: 36415; 73560; 73565; 82565; 84520; 86850; 86900; 86901

== ENCOUNTER 2023-08-25 14:29 | Outpatient (AMB) | payer BC, SELFPAY ==
[2023-08-25 14:36] VITALS: BP 142/98; PULSE 96; BMI 35.4
--- NOTE | 2023-08-25 14:36 | A.OFFVIS_ITS ---
Intake Vital Signs 08/25/23 14:36 Height 5 ft 11 in Weight 253 lb 8.505 oz BMI 35.4 BP 142/98 H Blood Pressure Location Lt brachial Position Sitting Pulse 96 Intake Visit Reasons: r/s from 04/28/23 ill Intake Note: Overdue follow-up c/o sob with activity , fatigue and feeling cold Financial Data Analyst Required: No Allergies No Known Allergies Allergy (Verified 01/20/23 13:30) Medication List - Last Reconciled 08/25/23 by Isaias Pitt MD amlodipine 5 mg PO DAILY coenzyme Q10 (Co Q-10) 200 mg PO DAILY doxazosin 16 mg PO DAILY finasteride 5 mg PO DAILY 90 days furosemide (Lasix) 40 mg PO Q OTHER DAY lisinopril 40 mg PO DAILY metformin ER 500 mg PO DAILY potassium chloride ER 20 mEq PO DAILY HPI HPI Comments History of Present Illness Details 78-year-old gentleman who is here for f/ ut. He was previously seeing Dr. Robert. He has history of severe aortic valve stenosis underwent bioprosthetic aortic valve replacement with a trifecta valve. This was approximately 4 years ago. His presenting to us because he has dyspnea on exertion ongoing for a year. He has arthritis in his left knee and overall has not been physically active. He is denying any orthopnea or PND. He has perip heral edema and has been using Lasix 40 mg every other day. He takes amlodipine 5 mg daily. No chest discomfort. He is diabetic and has background of hypertension. He is on amlodipine 5 mg and Lasix 40 mg every other day along with lisinopril 40 mg daily. He has been labeled as chronic atrial fibrillation and based on old notes he was on Pradaxa at 1 stage but looks like he has been off anticoagulation. It appears he had left atrial appendage ligation along with aortic valve replacement. 08/25/23: He returns for f/u. He had ech o which has showed preserved LV function and normal bioprosthetic valve function. He is complaining of fatigue. He is saying he sleeps alot more and takes 2-3 naps during the day. He has arthritis in knees which limits his mobility. He has not been taking anticoagulation. He is saying at one stage he was cardioverted and felt more energetic. He is asking if cardioversion is a possibility. [facility] Medical History BPH (benign prostatic hyperplasia) Diabetes HTN (hypertension) On beta vince at home Urinary retention Surgical History Hx of aortic valve replacement Family History (Updated 01/20/23 @ 13:36 by HILL Tasi) Mother Heart disease HTN (hypertension) Diabetes Father HTN (hypertension) Diabetes Social History Alcohol intake: never Patient Tobacco Use Status: Never used Tobacco Review of Systems Const Denies chills, Denies fatigue, Denies fever(s), Denies frequent falls, Denies weakness, Denies weight gain and Denies weight loss ENT Denies dizziness Card Denies chest pain, Denies leg edema, Denies lightheadedness, Denies palpita tions, Denies dyspnea, Denies dyspnea on exertion, Denies orthopnea and Denies other (loss of consciousness) Resp Denies cough, Denies dyspnea and Denies dyspnea on exertion GI Denies hematochezia and Denies change in stool character Musc Denies abnormal gait, Denies muscle weakness, Denies numbness, Denies radiating pain into limb and Denies tingling Neuro Denies abnormal gait, Denies dizziness, Denies frequent falls, Denies numbness, Denies tingling and Denies weakness Endo Denies fatigue and Denies palpitations Physical Exam Vital Signs: Last Vital Signs Pulse 96 08/25/23 14:36 BP 142/98 H 08/25/23 14:36 BMI result Body Mass Index 35.4 GENERAL APPEARANCE: in no acute distress, pleasant. NECK: no carotid bruit, no jugular venous distention. SKIN: no suspicious lesions, warm and dry. HEART: no murmurs, irregular rate and rhythm. LUNGS: clear to auscultation bilaterally. ABDOMEN: soft, nontender. EXTREMITIES: 1-2+ edema. PERIPHERAL PULSES: equal. NEUROLOGIC: No gross deficits, AAO X 3 Assessment & Plan Assessment & Plan (1) Sleep disorder breathing: Code(s): G47.30 - Sleep apnea, unspecified (2) Persistent atrial fibrillation: Code(s): I48.19 - Other persistent atrial fibrillation (3) SONW (dyspnea on exertion): Code(s): R06.09 - Other forms of dyspnea Plan [age] year gentleman with background of severe aortic valve stenosis status post bioprosthetic aortic valve placement, atrial fibrillation, fatigue and dyspnea. He has peripheral edema which is likely due to amlodipine. He is complaining of fatigue and dyspnea. He is quite deconditioned due to arthritis and foot drop left foot. He is saying he has felt better after cardioversion in the past. He has been in atrial fibrillation for long time and gently is more difficult to convert to sinus rhythm if you are in atrial fibrillation for long time due to atrial remodeling. We had a detailed discussion and we have decided to start amiodarone and start him on anticoagulation. I have explained to him that ideally should be on long-term anticoagulation but given the fact that he had left atrial appendage closure previously and was told that he can get off the anticoagulation he was not taking anticoagulation. My advice to him is that he should be on long-term anticoagulation. Regardless for cardioversion he needs to be on anticoagulation 4 weeks before and 2 months after the cardioversion. He is agreeable for that. We start him on apixaban 5 mg twice a day. I will also arrange a sleep study for him because I think he has underlying sleep apnea as 1 of the potential reasons for his fatigue. Thank you for allowing me to participate in the care of your patient. Please feel free to contact me if you have any questions. Orders: Orders Cardioversion Today I48.20 - Chronic atrial fibrillation, unspecified Basic Metabolic Panel Today I48.20 - Chronic atrial fibrillation, unspecified Complete Blood Count no Diff Today I48.20 - Chronic atrial fibrillation, unspecified TSH reflex Free T4 Today I48.20 - Chronic atrial fibrillation, unspecified B Type Natriuretic Peptide Today I48.20 - Chronic atrial fibrillation, unspecified Liver Panel Today I48.20 - Chronic atrial fibrillation, unspecified RT PSG in-lab sleep study Today G47.30 - Sleep apnea, unspecified Medications: New amiodarone orally Take 2 tablets twice a day x 2 weeks then 1 tablet (200mg) daily.; 100 tabs 3RF I48.19 - Other persistent atrial fibrillation apixaban 5 mg PO BID 120 tabs 3RF I48.19 - Other persistent atrial fibrillation Coding Level of Care Code Est Pt Level 4 (08970) Diagnoses Sleep disorder breathing G47.30 Persistent atrial fibrillation I48.19 SNOW (dyspnea on exertion) R06.09
== END 2023-08-25 15:07 | disposition home or self-care (01) ==
PROVIDERS: PCP Internal Medicine; Visit Provider Internal Medicine Cardiovascular Disease
DX: G47.30 Sleep apnea, unspecified (principal); I48.19 Other persistent atrial fibrillation; R06.09 Other forms of dyspnea
CPT/HCPCS: 99214

== ENCOUNTER 2023-08-25 14:29 | Outpatient (REF) | payer BC, SELFPAY ==
[2023-08-25 16:58] LABS: Hematocrit 40.6 % (42.0-52.0); Hemoglobin 12.7 g/dl (14.0-18.0); Mean Corpuscular HGB Conc 31.3 g/dl (31.0-36.0); Mean Corpuscular Hemoglobin 26.4 pg (27.0-33.0); Mean Corpuscular Volume 84.4 fL (80.0-98.0); Mean Platelet Volume 9.7 fL (9.4-12.4); Platelet Count 212 X10*3/uL (160-400); Red Blood Count 4.81 X10*6/uL (4.60-5.80); Red Cell Distribution Width 14.6 % (11.0-16.0); White Blood Count 7.3 X10*3/uL (4.8-10.8)
[2023-08-25 17:44] LABS: Alanine Aminotransferase 19 U/L (0-40); Alkaline Phosphatase 98 U/L (39-117); Anion Gap 15 (12-20); Aspartate Amino Transferase 23 U/L (5-37); Bilirubin Direct 0.4 mg/dL (0.0-0.5); Bilirubin Total 0.6 mg/dL (0.0-1.0); Blood Urea Nitrogen 19 mg/dL (9-16); Calcium 9.5 mg/dL (8.4-10.2); Carbon Dioxide 23 mmol/L (22-29); Chloride 106 mmol/L (96-108); Estimated Glomerular Filt Rate > 60; Glucose Random 157 mg/dL (60-115); Potassium 4.1 mmol/L (3.3-5.1); Sodium 140 mmol/L (135-145)
[2023-08-25 17:51] LABS: TSH reflex Free T4 1.41 uIU/mL (0.32-4.0)
[2023-08-25 18:16] LABS: B Type Natriuretic Peptide 197 pg/mL (<100)
== END 2023-08-25 14:30 | disposition home or self-care (01) ==
LOC: HO.LAB 14:29
PROVIDERS: PCP Internal Medicine; Visit Provider Internal Medicine Cardiovascular Disease
DX: I48.19 Other persistent atrial fibrillation (principal); R06.09 Other forms of dyspnea; G47.30 Sleep apnea, unspecified; Z95.2 Presence of prosthetic heart valve
CPT/HCPCS: 36415; 80048; 80076; 83880; 84443; 85027

== ENCOUNTER 2023-11-24 13:56 | Outpatient (AMB) | payer BC, SELFPAY ==
--- NOTE | 2023-11-24 13:58 | A.OFFVIS_ITS ---
Intake Vital Signs 11/24/23 13:59 Height 5 ft 11 in Weight 252 lb BMI 35.1 BP 120/64 Blood Pressure Location Lt brachial Position Sitting Intake Visit Reasons: 3 mth f/up cvr/ sleep study Intake Note: 3 mnth f/up cvr/sleep study/ pt its feeling some shortness of breath and feels weak. 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 He was previously seeing Dr. Robert. He has history of severe aortic valve stenosis underwent bioprosthetic aortic valve replacement with a trifecta valve. This was approximately 4 years ago. His presenting to us because he has dyspnea on exertion ongoing for a year. He has arthritis in his left knee and overall has not been physically active. He is denying any orthopnea or PND. He has peripheral edema and has been using Lasix 40 mg every other day. He takes amlodipine 5 mg daily. No chest discomfort. He is diabetic and has background of hypertension. He is on amlodipine 5 mg and Lasix 40 mg every other day along with lisinopril 40 mg daily. He has been labeled as chronic atrial fibrillation and based on old notes he was on Pradaxa at 1 stage but looks like he has been off anticoagulation. It appears he had left atrial appendage ligation along with aortic valve replacement. 08/25/23: He returns for f/u. He had ech o which has showed preserved LV function and normal bioprosthetic valve function. He is complaining of fatigue. He is saying he sleeps alot more and takes 2-3 naps during the day. He has arthritis in knees which limits his mobility. He has not been taking anticoagulation. He is saying at one stage he was cardioverted and felt more energetic. He is asking if cardioversion is a possibility. 11/24/2023: He returns for follow-up. Alessia ross visit discussed about cardioversion and started him on Eliquis and amiodarone. Apparently called afterward that he has been having some itching with amiodarone. At that time reported that itching happens after taking amiodarone and improves. He was advised to take some Benadryl and continue amiodarone. At that time it was unclear whether he is going to take amiodarone as he was asking he could be changed to flecainide. It appears he could not come for his cardioversion. He is saying that he missed his appointment somehow. He has been more fatigued and short of breath. He has significant peripheral edema at this point. He was taking Lasix every other day. [facility] Medical History (Updated 08/25/23 @ 18:05 by Isaias Pitt MD) Diabetes On beta vince at home HTN (hypertension) Urinary retention BPH (benign prostatic hyperplasia) Surgical History History of prostate surgery Hx of aortic valve replacement Family History Mother Heart disease HTN (hypertension) Diabetes Father HTN (hypertension) Diabetes Social History Alcohol intake: never Patient Tobacco Use Status: Never used Tobacco Review of Systems Const Reports chills, Reports fatigue, Reports fever(s), Reports frequent falls, Reports weakness, Reports weight gain and Reports weight loss ENT Reports dizziness Card Reports chest pain, Reports leg edema, Reports lightheadedness, Reports palpitations, Reports dyspnea and Reports dyspnea on exertion Resp Reports cough, Reports dyspnea and Reports dyspnea on exertion GI Reports hematochezia Musc Reports abnormal gait, Reports muscle weakness, Reports numbness, Reports radiating pain into limb and Reports tingling Neuro Reports abnormal gait, Reports dizziness, Reports frequent falls, Reports numbness, Reports tingling and Reports weakness Endo Reports fatigue and Reports palpitations Physical Exam Vital Signs: BMI result Body Mass Index 35.1 GENERAL APPEARANCE: in no acute distress, pleasant. NECK: no carotid bruit, mild jugular venous distention. SKIN: no suspicious lesions, warm and dry. HEART: no murmurs, irregular rate and rhythm. LUNGS: clear to auscultation bilaterally. ABDOMEN: soft, nontender. EXTREMITIES: 2+ edema. PERIPHERAL PULSES: equal. NEUROLOGIC: No gross deficits, AAO X 3 Office Procedures EKG Details: Atrial fibrillation 77 beats per minute, right axis deviation, septal infarct, QTC 484 milliseconds. [id number], Complete Assessment & Plan Assessment & Plan (1) Persistent atrial fibrillation: Code(s): I48.19 - Other persistent atrial fibrillation (2) Sleep disorder breathing: Code(s): G47.30 - Sleep apnea, unspecified (3) SNOW (dyspnea on exertion): Code(s): R06.09 - Other forms of dyspnea Plan 78-year-old gentleman presenting for follow-up. He has atrial fibrillation and dyspnea on exertion. Clinically appears to be in congestive heart failure. He has peripheral edema but this is worsened and is more short of breath and fatigue. I have advised him to start taking Lasix 40 mg p.o. b.i.d.. Continue amiodarone and Eliquis. He has been taking Eliquis regularly. We discussed about cardioversion again and he is agreeable and I am going to arrange cardioversion for him. I have also advised him to do a sleep study given the fact that he has significant daytime sleepiness fatigue at this point and he is overweight. We will arrange cardioversion soon. Thank you for allowing me to participate in the care of your patient. Please feel free to contact me if you have any questions. Orders: Orders RT PSG in-lab sleep study Today G47.30 - Sleep apnea, unspecified Cardioversion Today I48.19 - Other persistent atrial fibrillation Medications: New furosemide (Lasix) 40 mg PO BID 100 tabs 3RF G47.30 - Sleep apnea, unspecified Coding Level of Care Code Est Pt Level 4 (86814) Diagnoses Persistent atrial fibrillation I48.19 Sleep disorder breathing G47.30 SNOW (dyspnea on exertion) R06.09 CPT Codes EKG - CPT: 37763-[id number], Complete ([id number])
[2023-11-24 13:59] VITALS: BP 120/64; BMI 35.1
== END 2023-11-24 14:36 | disposition home or self-care (01) ==
PROVIDERS: PCP Internal Medicine; Visit Provider Internal Medicine Cardiovascular Disease
DX: I48.19 Other persistent atrial fibrillation (principal); G47.30 Sleep apnea, unspecified; R06.09 Other forms of dyspnea
CPT/HCPCS: 93010; 99214

== ENCOUNTER → 2023-11-24 13:56 | Outpatient (BNVA) | payer BC, SELFPAY | PROVIDERS: PCP Internal Medicine; Visit Provider Internal Medicine Cardiovascular Disease | DX: I48.19 Other persistent atrial fibrillation (principal); G47.30 Sleep apnea, unspecified; R06.09 Other forms of dyspnea; Z79.01 Long term (current) use of anticoagulants; Z79.899 Other long term (current) drug therapy | CPT/HCPCS: 93005 ==

== ENCOUNTER 2023-12-07 10:36 | Day surgery (SDC) | payer BC, SELFPAY ==
[2023-10-01 14:44] VITALS: BMI 35.4
--- NOTE | 2023-10-04 10:07 | P.CONAN_ITS ---
HPI - Anesthesia Eval Consult details Narrative: 78yo M for Cardioversion Eliquis for afib s/p AVR ~ 4 years ago [facility] Active Problems Active Problems: All Active Problems (Updated 08/25/23 @ 18:05 by Isaias Pitt MD) Persistent atrial fibrillation (Acute) Sleep disorder breathing (Acute) Chronic atrial fibrillation (Acute) SNOW (dyspnea on exertion) (Acute) Chronic UTI (urinary tract infection) (Acute) Elevated PSA (Acute) BPH (benign prostatic hyperplasia) (Acute) Urinary retention (Acute) Past Medical History Medical History (Updated 08/25/23 @ 18:05 by Isaias Pitt MD) Diabetes On beta vince at home HTN (hypertension) Urinary retention BPH (benign prostatic hyperplasia) Family History Family History (Updated 01/20/23 @ 13:36 by HILL Tsai) Mother Heart disease HTN (hypertension) Diabetes Father HTN (hypertension) Diabetes Family history of problems with anesthesia: No Surgical History Surgical History (Updated 10/01/23 @ 14:45 by Neli Kerns RN) History of prostate surgery Hx of aortic valve replacement History of Problems with Anesthesia: No Social History Social History Alcohol intake: never Patient Tobacco Use Status: Never used Tobacco Meds Allergies Allergy/AdvReac Type Severity Reaction Status Date / Time No Known Allergies Allergy Verified 01/20/23 13:30 Home Medications Medication Instructions Recorded Confirmed Last Taken Type amlodipine 5 mg tablet 5 mg PO DAILY 03/12/21 10/01/23 Unknown History lisinopril 40 mg tablet 40 mg PO DAILY 03/12/21 10/01/23 10/20/21 06:00 History metformin 500 mg tablet,extended 500 mg PO DAILY 03/12/21 10/01/23 10/20/21 06:00 History release 24 hr coenzyme Q10 200 mg capsule (Co 200 mg PO DAILY 01/20/23 10/01/23 Unknown History Q-10) doxazosin 8 mg tablet 16 mg PO DAILY 01/20/23 10/01/23 Unknown History furosemide 40 mg tablet (Lasix) 40 mg PO Q OTHER DAY 01/20/23 10/01/23 Unknown History potassium chloride 20 mEq 20 meq PO DAILY 08/25/23 10/01/23 Unknown History tablet,extended release Exam Height,Weight and Vital Signs: Height 5 ft 11 in Weight 115.212 kg Pertinent Lab Results Pertinent Lab Results: Laboratory Tests 08/25/23 15:43 WBC 7.3 Hgb 12.7 L Hct 40.6 L Plt Count 212 Sodium 140 Potassium 4.1 Chloride 106 Carbon Dioxide 23 BUN 19 H Creatinine 1.03 Narrative Narrative: EKG 01/2023 Atrial fibrillation 91 beats per minute, normal axis, cannot rule out septal infarct, nonspecific ST changes, QTC 435 milliseconds. ECHO 2022 Conclusions: - Normal left ventricular cavity size. There is normal left ventricular wall thickness. The left ventricular systolic function is hyperdynamic. The visually estimated ejection fraction is >70%. - Mildly increased right ventricular cavity size. There is mildly decreased right ventricular systolic function. - The left atrium is moderately dilated. RA is dilated. - A bioprosthetic aortic valve is present. The prosthetic aortic valve appears to be functioning normally. There is no aortic valve regurgitation. - Significantly elevated right atrial pressure. Mild to moderate pulmonary hypertension is present. - There is moderate dilatation of the ascending aorta measuring 4.70 cm. Assessment and Plan Assessment Anesthesia Assessment: Chart Reviewed Final Anesthetic Review Family History of Problems with Anesthesia: No History of Problems with Anesthesia: No
--- NOTE | 2023-12-06 08:48 | P.CONAN_ITS ---
Documented by User: Mary Bledsoe NP 12/06/23 08:52 HPI - Anesthesia Eval Consult details Narrative: 78yo M for Cardioversion s/p AVR, LA appendage ligation ~2019 Eliquis for afib PMFSH Active Problems Active Problems: All Active Problems (Updated 08/25/23 @ 18:05 by Isaias Pitt MD) Persistent atrial fibrillation (Acute) Sleep disorder breathing (Acute) Chronic atrial fibrillation (Acute) SNOW (dyspnea on exertion) (Acute) Chronic UTI (urinary tract infection) (Acute) Elevated PSA (Acute) BPH (benign prostatic hyperplasia) (Acute) Urinary retention (Acute) Past Medical History Medical History Diabetes On beta vince at home HTN (hypertension) Urinary retention BPH (benign prostatic hyperplasia) Family History Family History Mother Heart disease HTN (hypertension) Diabetes Father HTN (hypertension) Diabetes Family history of problems with anesthesia: No Surgical History Surgical History History of prostate surgery Hx of aortic valve replacement History of Problems with Anesthesia: No Social History Social History Alcohol intake: never Patient Tobacco Use Status: Never used Tobacco Use of substances other than those prescribed or required for medical reasons: No Are you DNR?: No Advance Directives: No Advance Directives Information Provided: Yes Meds Allergies Allergy/AdvReac Type Severity Reaction Status Date / Time No Known Allergies Allergy Verified 01/20/23 13:30 Home Medications Medication Instructions Recorded Confirmed Last Taken Type amlodipine 5 mg tablet 5 mg PO BEDTIME 03/12/21 12/07/23 12/06/23 History lisinopril 40 mg tablet 40 mg PO BEDTIME 03/12/21 12/07/23 12/06/23 History metformin 500 mg tablet,extended 500 mg PO DAILY 03/12/21 11/24/23 10/20/21 06:00 History release 24 hr coenzyme Q10 200 mg capsule (Co 200 mg PO DAILY 01/20/23 11/24/23 Unknown History Q-10) doxazosin 8 mg tablet 16 mg PO DAILY 01/20/23 11/24/23 Unknown History potassium chloride 20 mEq 20 meq PO DAILY 08/25/23 11/24/23 Unknown History tablet,extended release Exam Height,Weight and Vital Signs: Height 5 ft 11 in Weight 115.212 kg Pertinent Lab Results Pertinent Lab Results: Laboratory Tests 08/25/23 15:43 WBC 7.3 Hgb 12.7 L Hct 40.6 L Plt Count 212 Sodium 140 Potassium 4.1 Chloride 106 Carbon Dioxide 23 BUN 19 H Creatinine 1.03 Narrative Narrative: EKG 11/2023 Atrial fibrillation 77 beats per minute, right axis deviation, septal infarct, QTC 484 milliseconds. ECHO 03/2023 Conclusions: - Normal left ventricular cavity size. There is normal left ventricular wall thickness. The left ventricular systolic function is hyperdynamic. The visually estimated ejection fraction is >70%. - Mildly increased right ventricular cavity size. There is mildly decreased right ventricular systolic function. - The left atrium is moderately dilated. RA is dilated. - A bioprosthetic aortic valve is present. The prosthetic aortic valve appears to be functioning normally. There is no aortic valve regurgitation. - Significantly elevated right atrial pressure. Mild to moderate pulmonary hypertension is present. - There is moderate dilatation of the ascending aorta measuring 4.70 cm. Assessment and Plan Assessment Anesthesia Assessment: Chart Reviewed Final Anesthetic Review Family History of Problems with Anesthesia: No History of Problems with Anesthesia: No Documented by User: Soumya Monroe MD 12/07/23 13:00 [facility] Past Medical History Medical History Diabetes On beta vince at home HTN (hypertension) Urinary retention BPH (benign prostatic hyperplasia) Family History Family History Mother Heart disease HTN (hypertension) Diabetes Father HTN (hypertension) Diabetes Surgical History Surgical History History of prostate surgery Hx of aortic valve replacement Social History Social History Alcohol intake: never Patient Tobacco Use Status: Never used Tobacco Use of substances other than those prescribed or required for medical reasons: No Are you DNR?: No Advance Directives: No Advance Directives Information Provided: Yes Meds Allergies Allergy/AdvReac Type Severity Reaction Status Date / Time No Known Allergies Allergy Verified 01/20/23 13:30 Home Medications Medication Instructions Recorded Confirmed Last Taken Type amlodipine 5 mg tablet 5 mg PO BEDTIME 03/12/21 12/07/23 12/06/23 History lisinopril 40 mg tablet 40 mg PO BEDTIME 03/12/21 12/07/23 12/06/23 History metformin 500 mg tablet,extended 500 mg PO DAILY 03/12/21 11/24/23 10/20/21 06:00 History release 24 hr coenzyme Q10 200 mg capsule (Co 200 mg PO DAILY 01/20/23 11/24/23 Unknown His tory Q-10) doxazosin 8 mg tablet 16 mg PO DAILY 01/20/23 11/24/23 Unknown History potassium chloride 20 mEq 20 meq PO DAILY 08/25/23 11/24/23 Unknown History tablet,extended release Exam Airway Heart: rrr Lungs: cta Assessment and Plan Assessment Anesthesia Assessment: Anesthesia Plan Discussed Final Anesthetic Review NPO: Yes ASA Class: III and Emergency Final Preanesthetic Review: No Changes in Pt Med Stat, Meds/Allgs Chart Reviewed, Consent Obtained/Reviewed and Anes Risks/Benef Reviewed Patient Risk: Intermediate Procedure Risk: Low Anesthetic Plan Anesthetic Plan: MAC: Disposition: Standard PACU
--- NOTE | 2023-12-07 | ECG_ITS ---
Test Reason : POST CARDIOVERSION Blood Pressure : / mmHG Vent. Rate : 050 BPM Atrial Rate : 050 BPM P-R Int : 282 ms QRS Dur : 096 ms QT Int : 522 ms P-R-T Axes : 023 003 029 degrees QTc Int : 475 ms Sinus bradycardia with 1st degree A-V block Septal infarct , age undetermined Abnormal ECG No previous ECGs available Referred By: Isaias Pitt Electronically Signed By:Isaias Pitt
[2023-12-07 12:07] VITALS: BMI 36.7
[2023-12-07] MEDS: Apixaban 5 MG TABLET PO (12:18)
[2023-12-07 12:23] VITALS: BP 187/98; PULSE 64; RESP 16; TEMP 36.6; O2SAT 64
[2023-12-07 12:31] LABS: Glucose, Whole Blood 115 mg/dL (60-115)
[2023-12-07] MEDS: Lactated Ringers 1,000 ML 50 ML IVCONT (12:36)
--- NOTE | 2023-12-07 13:32 | MHC.SHP ---
Pre-Procedural Eval Section A Date of Service: 12/07/23 The patient is an INPATIENT: No Section B Chief Complaint: Chronic atrial fibrillation, unspecified Details of Present Illness: Here for cardioversion Allergies: Allergies Allergy/AdvReac Type Severity Reaction Status Date / Time No Known Allergies Allergy Verified 01/20/23 13:30 Plan Diagnosis/Plan: Unchanged I have reviewed the history and physical and performed a pertinent physical examination on my patient. No changes have occurred unless specified. Time Spent With Patient Time: Total time managing care of this patient today ____ minutes.
--- NOTE | 2023-12-07 13:39 | HO.CARDIVERS ---
Cardioversion Procedure Note Cardioversion Date of Procedure: 12/07/23 Ordering Provider: Isaias Pitt Performing Provider: Isaias Pitt Indication for Procedure: Afib Consent: Verbal and Written consent was obtained from the patient before starting. The patient was made aware of the risk of stroke, skin del valle, arrhythmia, failure Procedure: After consent obtained, defib pads were attached and the patient was sedated by the anesthesia team. Once adequate sedation achieved, single synchronized shock fo 200 J was given. The patient converted to sinus rhythm. Complications: No acute complications. Recommendations: c/w amiodarone and apixaban as before.
[2023-12-07 13:40] VITALS: BP 184/97; PULSE 53; RESP 14; TEMP 36.7; O2SAT 98
[2023-12-07 13:45] VITALS: BP 194/94; PULSE 51; RESP 20; O2SAT 100
[2023-12-07 13:50] VITALS: BP 184/87; PULSE 51; RESP 16; O2SAT 100
[2023-12-07 13:55] VITALS: BP 172/75; PULSE 64; RESP 18; O2SAT 98
[2023-12-07 14:10] VITALS: BP 173/82; PULSE 54; RESP 19; TEMP 36.7; O2SAT 97
== END 2023-12-07 14:51 | disposition home or self-care (01) ==
PROVIDERS: PCP Internal Medicine; Visit Provider Internal Medicine Cardiovascular Disease
PROC: 5A2204Z Restoration of Cardiac Rhythm, Single (ICD-10-PCS; principal; 2023-12-07 13:00)
DX: I48.20 Chronic atrial fibrillation, unspecified (principal); Z79.01 Long term (current) use of anticoagulants; R53.83 Other fatigue; G47.30 Sleep apnea, unspecified; I10 Essential (primary) hypertension; E11.9 Type 2 diabetes mellitus without complications; Z79.899 Other long term (current) drug therapy; Z79.84 Long term (current) use of oral hypoglycemic drugs
CPT/HCPCS: 82947; 92960; 93005; J0461; J2704

== ENCOUNTER → 2023-12-07 10:36 | Outpatient (BNV) | payer BC, SELFPAY | PROVIDERS: PCP Internal Medicine; Visit Provider Internal Medicine Cardiovascular Disease | DX: I48.20 Chronic atrial fibrillation, unspecified (principal) | CPT/HCPCS: 92960 ==

== ENCOUNTER 2023-12-14 13:03 | Outpatient (AMB) | payer BC, SELFPAY ==
[2023-12-14 13:06] VITALS: BP 120/80; PULSE 76; BMI 36.2
--- NOTE | 2023-12-14 13:06 | A.OFFVIS_ITS ---
Intake Vital Signs 12/14/23 13:06 Height 5 ft 10 in Weight 252 lb BMI 36.2 BP 120/80 Blood Pressure Location Lt brachial Position Sitting Pulse 76 Intake Visit Reasons: 1 wk s/p cvr CHF per KM Intake Note: 1 w s/p cvr CHF per KM/ pt its feelinf fine. 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 Accompanied by: Self / Same As Patient Allergies No Known Allergies Allergy (Verified 12/14/23 13:10) Medication List - Last Reconciled 12/14/23 by Hien Guadalupe NP amiodarone 200 mg orally 1 tablet daily; apixaban (Eliquis) 5 mg PO BID coenzyme Q10 (Co Q-10) 200 mg PO DAILY doxazosin 16 mg PO DAILY furosemide (Lasix) Take 2 tablets in the morning and 1 in the afternoon; lisinopril 40 mg PO .bid metformin ER 500 mg PO DAILY potassium chloride ER 20 mEq PO DAILY HPI HPI Comments History of Present Illness Details 78-year-old male presents today to [facility] after having a cardioversion and to follow-up on his CHF. He was cardioverted into sinus rhythm on 12/07/[address] Pitt. He is currently down 4 lbs since then. He was 256 lbs and is currently 252 lbs. Patient has not done the sleep study yet as he did not show up to his appointment. Will have him call to reschedule. [facility] Medical History Diabetes On beta vince at home HTN (hypertension) Urinary retention BPH (benign prostatic hyperplasia) Surgical History History of prostate surgery Hx of aortic valve replacement Family History Mother Heart disease HTN (hypertension) Diabetes Father HTN (hypertension) Diabetes Social History Alcohol intake: never Patient Tobacco Use Status: Never used Tobacco Review of Systems Const Denies chills, Denies fatigue, Denies fever(s), Denies frequent falls, Denies weakness, Denies weight gain and Denies weight loss ENT Denies dizziness Card Denies chest pain, Denies leg edema, Denies lightheadedness, Denies palpitations, Denies dyspnea and Denies dyspnea on exertion Resp Denies cough, Denies dyspnea and Denies dyspnea on exertion GI Denies hematochezia Musc Denies abnormal gait, Denies muscle weakness, Denies numbness, Denies radiating pain into limb and Denies tingling Neuro Denies abnormal gait, Denies dizziness, Denies frequent falls, Denies numbness, Denies tingling and Denies weakness Endo Denies fatigue and Denies palpitations Physical Exam Vital Signs: Last Vital Signs Pulse 76 12/14/23 13:06 BP 120/80 12/14/23 13:06 BMI result Body Mass Index 36.2 Const General: healthy appearing and no acute distress Orientation/consciousness: patient oriented x3 HEENT Head: Yes normal to inspection Eyes General: appearance normal, both eyes and all related structures Neck Neck: Yes normal visual inspection Chest Chest palpation & inspection: normal inspection of the chest Resp Effort & Inspection: normal respiratory effort Auscultation: clear to auscultation bilaterally Cardio Jugular venous distension: no JVD Palpation: normal PMI Rate: Other (atrial fibrillation) Rhythm: abnormal rhythm (atrial fibrillation) Heart sounds: S1 normal heart sound present, S2 normal heart sound present, no click, no gallops, no murmurs and no rubs GI Inspection: Yes normal to inspection Palpation (GI): Soft to palpation Skin General skin exam: no rashes or lesions noted Neuro General: patient oriented x3 Extrem General: Yes pedal edema (+1 edema) Psych Appearance: grossly normal Office Procedures EKG Details: EKG today, atrial fibrillation. Rate 76bpm. QTc 487ms. [id number], Complete Assessment & Plan Assessment & Plan (1) Persistent atrial fibrillation: Code(s): I48.19 - Other persistent atrial fibrillation (2) SNOW (dyspnea on exertion): Code(s): R06.09 - Other forms of dyspnea Plan Will send him for blood work. Will call pharmacy to see his current dose of lisinopril to confirm if daily or BID. Will talk to Dr. Pitt in regards to plan for atrial fibrillation. Orders: Orders Basic Metabolic Panel 12/14/23 I48.19 - Other persistent atrial fibrillation, R06.09 - Other forms of dyspnea B Type Natriuretic Peptide 12/14/23 I48.19 - Other persistent atrial fibrillation, R06.09 - Other forms of dyspnea Coding Level of Care Code Est Pt Level 3 (46685) Diagnoses Persistent atrial fibrillation I48.19 SNOW (dyspnea on exertion) R06.09 CPT Codes EKG - CPT: 36076-[id number], Complete ([id number])
== END 2023-12-14 13:47 | disposition home or self-care (01) ==
PROVIDERS: PCP Internal Medicine; Visit Provider Nurse Practitioner
DX: I48.19 Other persistent atrial fibrillation (principal); R06.09 Other forms of dyspnea
CPT/HCPCS: 93010; 99213

== ENCOUNTER 2023-12-14 13:03 | Outpatient (REF) | payer BC, SELFPAY ==
[2023-12-14 14:42] LABS: Anion Gap 12 (12-20); Blood Urea Nitrogen 25 mg/dL (9-16); Carbon Dioxide 31 mmol/L (22-29); Chloride 104 mmol/L (96-108); Estimated Glomerular Filt Rate 40; Glucose Random 131 mg/dL (60-115); Potassium 3.4 mmol/L (3.3-5.1); Sodium 144 mmol/L (135-145)
[2023-12-14 14:47] LABS: B Type Natriuretic Peptide 401 pg/mL (<100)
== END 2023-12-14 13:04 | disposition home or self-care (01) ==
LOC: HO.LAB 13:03
PROVIDERS: PCP Internal Medicine; Referring Provider Internal Medicine Cardiovascular Disease; Visit Provider Nurse Practitioner
DX: I48.19 Other persistent atrial fibrillation (principal); R06.09 Other forms of dyspnea
CPT/HCPCS: 36415; 80048; 83880; 93005

== ENCOUNTER 2023-12-24 15:55 | Outpatient (REF) | payer BC, SELFPAY ==
[2023-12-24 17:14] LABS: Anion Gap 13 (12-20); Blood Urea Nitrogen 24 mg/dL (9-16); Calcium 9.1 mg/dL (8.4-10.2); Carbon Dioxide 27 mmol/L (22-29); Chloride 105 mmol/L (96-108); Estimated Glomerular Filt Rate 56; Glucose Random 144 mg/dL (60-115); Potassium 4.1 mmol/L (3.3-5.1); Sodium 141 mmol/L (135-145)
[2023-12-24 17:21] LABS: B Type Natriuretic Peptide 280 pg/mL (<100)
== END 2023-12-24 15:56 | disposition home or self-care (01) ==
LOC: HO.LAB 15:55
PROVIDERS: Visit Provider Nurse Practitioner
DX: I50.9 Heart failure, unspecified (principal)
CPT/HCPCS: 36415; 80048; 83880

== ENCOUNTER 2024-01-05 08:21 | Day surgery (SDC) | payer BC, SELFPAY ==
[2023-12-29 13:55] VITALS: BMI 36.2
--- NOTE | 2023-12-30 08:52 | HO.ANESPROP2 ---
Documented by User: Mary Bledsoe NP 12/30/23 08:57 HPI - Anesthesia Eval Consult details Narrative: 78yo M for Cardioversion s/p same 11/2023 with MAC s/p AVR, LA appendage ligation ~2019 Eliquis for afib PMFSH Active Problems Active Problems: All Active Problems (Updated 12/29/23 @ 13:44 by Sierra Simpson RN) Heart failure (Acute) Persistent atrial fibrillation (Acute) Sleep disorder breathing (Acute) Chronic atrial fibrillation (Acute) SNOW (dyspnea on exertion) (Acute) Chronic UTI (urinary tract infection) (Acute) Elevated PSA (Acute) BPH (benign prostatic hyperplasia) (Acute) Urinary retention (Acute) Past Medical History Medical History (Updated 01/05/24 @ 09:40 by Maki Schmitt) History of cardioversion AAA (abdominal aortic aneurysm) Diabetes HTN (hypertension) Urinary retention BPH (benign prostatic hyperplasia) Family History Family History Mother Heart disease HTN (hypertension) Diabetes Father HTN (hypertension) Diabetes Family history of problems with anesthesia: No Surgical History Surgical History History of prostate surgery Hx of aortic valve replacement History of Problems with Anesthesia: No Social History Social History Alcohol intake: never Patient Tobacco Use Status: Never used Tobacco Use of substances other than those prescribed or required for medical reasons: No Are you DNR?: No Advance Directives: No Advance Directives Information Provided: Yes Meds Allergies Allergy/AdvReac Type Severity Reaction Status Date / Time No Known Allergies Allergy Verified 01/05/24 09:13 Home Medications Medication Instructions Recorded Confirmed Last Taken Type metformin 500 mg tablet,extended 500 mg PO DAILY 03/12/21 01/05/24 01/04/24 History release 24 hr coenzyme Q10 200 mg capsule (Co 200 mg PO DAILY 01/20/23 01/05/24 Unknown History Q-10) doxazosin 8 mg tablet 16 mg PO DAILY 01/20/23 01/05/24 Unknown History potassium chloride 20 mEq 20 meq PO DAILY 08/25/23 01/05/24 01/04/24 History tablet,extended release amiodarone 200 mg tablet 200 mg PO .COMPLEX 12/14/23 01/05/24 01/05/24 09:52 History apixaban 5 mg tablet (Eliquis) 5 mg PO BID 12/14/23 01/05/24 01/05/24 09:52 History lisinopril 40 mg tablet 40 mg PO DAILY 12/28/23 01/05/24 01/04/24 History Exam Height,Weight and Vital Signs: Height 5 ft 10 in Weight 114.305 kg Pertinent Lab Results Pertinent Lab Results: Laboratory Tests 08/25/23 08/25/23 12/24/23 15:43 15:43 16:03 WBC 7.3 Hgb 12.7 L Hct 40.6 L Plt Count 212 Sodium Potassium 4.1 D Chloride Carbon Dioxide BUN Creatinine 12/24/23 16:03 WBC Hgb Hct Plt Count Sodium 141 Potassium Chloride 105 Carbon Dioxide 27 BUN 24 H Creatinine 1.25 Narrative Narrative: EKG 11/2023 atrial fibrillation. Rate 76bpm. QTc 487ms ECHO 03/2023 Conclusions: - Normal left ventricular cavity size. There is normal left ventricular wall thickness. The left ventricular systolic function is hyperdynamic. The visually estimated ejection fraction is >70%. - Mildly increased right ventricular cavity size. There is mildly decreased right ventricular systolic function. - The left atrium is moderately dilated. RA is dilated. - A bioprosthetic aortic valve is present. The prosthetic aortic valve appears to be functioning normally. There is no aortic valve regurgitation. - Significantly elevated right atrial pressure. Mild to moderate pulmonary hypertension is present. - There is moderate dilatation of the ascending aorta measuring 4.70 cm. Assessment and Plan Assessment Anesthesia Assessment: Chart Reviewed Final Anesthetic Review Family History of Problems with Anesthesia: No History of Problems with Anesthesia: No Documented by User: Erasmo Kenny MD 01/05/24 10:38 [facility] Past Medical History Medical History (Updated 01/05/24 @ 09:40 by Maki Schmitt) History of cardioversion AAA (abdominal aortic aneurysm) Diabetes HTN (hypertension) Urinary retention BPH (benign prostatic hyperplasia) Family History Family History Mother Heart disease HTN (hypertension) Diabetes Father HTN (hypertension) Diabetes Surgical History Surgical History History of prostate surgery Hx of aortic valve replacement Social History Social History Alcohol intake: never Patient Tobacco Use Status: Never used Tobacco Use of substances other than those prescribed or required for medical reasons: No Are you DNR?: No Advance Directives: No Advance Directives Information Provided: Yes Meds Allergies Allergy/AdvReac Type Severity Reaction Status Date / Time No Known Allergies Allergy Verified 01/05/24 09:13 Home Medications Medication Instructions Recorded Confirmed Last Taken Type metformin 500 mg tablet,extended 500 mg PO DAILY 03/12/21 01/05/24 01/04/24 History release 24 hr coenzyme Q10 200 mg capsule (Co 200 mg PO DAILY 01/20/23 01/05/24 Unknown History Q-10) doxazosin 8 mg tablet 16 mg PO DAILY 01/20/23 01/05/24 Unknown History potassium chloride 20 mEq 20 meq PO DAILY 08/25/23 01/05/24 01/04/24 History tablet,extended release amiodarone 200 mg tablet 200 mg PO .COMPLEX 12/14/23 01/05/24 01/05/24 09:52 History apixaban 5 mg tablet (Eliquis) 5 mg PO BID 12/14/23 01/05/24 01/05/24 09:52 History lisinopril 40 mg tablet 40 mg PO DAILY 12/28/23 01/05/24 01/04/24 History Exam Airway Mallampati Class: III TM Dist: >3cm Neck ROM: Full Assessment and Plan Assessment Anesthesia Assessment: Anesthesia Plan Discussed Final Anesthetic Review NPO: Yes ASA Class: III Final Preanesthetic Review: No Changes in Pt Med Stat, Meds/Allgs Chart Reviewed, Consent Obtained/Reviewed and Anes Risks/Benef Reviewed Patient Risk: Intermediate Procedure Risk: Low Anesthetic Plan Anesthetic Plan: GA Disposition: Standard PACU
--- NOTE | 2024-01-05 08:44 | MHC.SHP ---
Pre-Procedural Eval Section A - 24 Hr Update-Section A only Date of Service: 01/05/24 The patient is an INPATIENT: No Changes since office visit: Yes Patient answered all questions; No Cold of Flu in the past 2 weeks, No New Medical Problems and No Changes in Medication The patient has been examined within 24 hours of the surgical procedure. The History & Physical has been completed within 30 days and I have reviewed it.: Yes Section B - Complete if H&P > 30 days Chief Complaint: Chronic atrial fibrillation, unspecified Allergies: Allergies Allergy/AdvReac Type Severity Reaction Status Date / Time No Known Allergies Allergy Verified 12/14/23 13:10 Plan I have reviewed the history and physical and performed a pertinent physical examination on my patient. No changes have occurred unless specified. Time Spent With Patient Time: Total time managing care of this patient today ____ minutes.
[2024-01-05 09:30] VITALS: BP 186/76; PULSE 65; RESP 16; TEMP 36.8; O2SAT 96; BMI 36.2
[2024-01-05 09:41] LABS: Glucose, Whole Blood 118 mg/dL (60-115)
[2024-01-05] MEDS: Amiodarone HCL 200 MG TABLET PO (09:50)
[2024-01-05] MEDS: Lactated Ringers 1,000 ML 50 ML IVCONT (09:50)
[2024-01-05] MEDS: Apixaban 5 MG TABLET PO (09:50)
--- NOTE | 2024-01-05 11:02 | ECG_ITS ---
Test Reason : post cardioversion Blood Pressure : / mmHG Vent. Rate : 055 BPM Atrial Rate : 055 BPM P-R Int : 248 ms QRS Dur : 104 ms QT Int : 518 ms P-R-T Axes : 032 014 030 degrees QTc Int : 495 ms Sinus bradycardia with 1st degree A-V block Septal infarct (cited on or before 07-DEC-2023) Abnormal ECG When compared with ECG of 07-DEC-2023 13:42, No significant change was found Referred By: Fredrick Gomez Electronically Signed By:FREDRICK GOMEZ MD
--- NOTE | 2024-01-05 11:02 | HO.CARDIVERS ---
Cardioversion Procedure Note Cardioversion Date of Procedure: Today Ordering Provider: Diego Pitt Performing Provider: Myself Indication for Procedure: Persistent symptomatic atrial fibrillation with heart failure Pre-Op Diagnosis: Same Post-Op Diagnosis: Sinus rhythm Performed with Transesophageal Echo: No Consent: Verbal and Written consent was obtained from the patient before starting after giving the dose of amiodarone and Eliquis. The patient was made aware of the risk of synchronized cardioversion including benefits and alternatives Procedure: After consent obtained, cardioversion pads were attached in anteroposterior configuration and the patient was sedated by the anesthesia team. Once adequate sedation achieved, patient was delivered 200 joules of biphasic energy in anteroposterior configuration Complications: None Impression: Normal sinus rhythm Recommendations: 1. Continue full oral anticoagulation amiodarone 2. Follow up in the office after Holter monitor
[2024-01-05 11:05] VITALS: BP 170/95; PULSE 58; RESP 15; TEMP 36.2; O2SAT 98
[2024-01-05 11:10] VITALS: BP 173/93; PULSE 64; RESP 15; O2SAT 98
[2024-01-05 11:15] VITALS: BP 170/105; PULSE 65; RESP 18; O2SAT 98
[2024-01-05 11:20] VITALS: BP 174/97; PULSE 58; RESP 14; O2SAT 98
[2024-01-05 11:35] VITALS: BP 171/88; PULSE 57; RESP 16; TEMP 36.3; O2SAT 98
== END 2024-01-05 12:08 | disposition home or self-care (01) ==
PROVIDERS: PCP Internal Medicine; Visit Provider Internal Medicine Cardiovascular Disease
PROC: 5A2204Z Restoration of Cardiac Rhythm, Single (ICD-10-PCS; principal; 2024-01-05 11:00)
DX: I48.19 Other persistent atrial fibrillation (principal); R06.09 Other forms of dyspnea; I11.0 Hypertensive heart disease with heart failure; I50.9 Heart failure, unspecified; E11.9 Type 2 diabetes mellitus without complications; Z79.01 Long term (current) use of anticoagulants; Z79.84 Long term (current) use of oral hypoglycemic drugs; Z79.899 Other long term (current) drug therapy
CPT/HCPCS: 82947; 92960; 93005; J2704

== ENCOUNTER → 2024-01-05 08:21 | Outpatient (BNV) | payer BC, SELFPAY | PROVIDERS: PCP Internal Medicine; Visit Provider Internal Medicine Cardiovascular Disease | DX: I48.19 Other persistent atrial fibrillation (principal) | CPT/HCPCS: 92960 ==

== ENCOUNTER 2024-01-21 13:08 | Outpatient (AMB) | payer BC, SELFPAY ==
--- NOTE | 2024-01-21 13:15 | A.OFFVIS_ITS ---
Intake Vital Signs 01/21/24 13:18 01/21/24 13:40 Height 5 ft 10 in Weight 248 lb BMI 35.6 BMI Reason not done Patient refused/unable BP 178/98 H Blood Pressure Location Lt brachial Lt brachial Position Sitting Sitting Pulse 60 Intake Visit Reasons: Follow up post cardioversion Intake Note: follow up for cardioversion Allergies No Known Allergies Allergy (Verified 01/05/24 09:13) Medication List - Last Reconciled 01/21/24 by Hien Guadalupe NP amiodarone 200 mg orally 1 tablet daily; apixaban (Eliquis) 5 mg PO BID coenzyme Q10 (Co Q-10) 200 mg PO DAILY doxazosin 16 mg PO DAILY furosemide (Lasix) 40 mg PO Q OTHER DAY lisinopril 40 mg PO DAILY metformin ER 500 mg PO DAILY potassium chloride ER 20 mEq PO DAILY HPI HPI Comments History of Present Illness Details 78-year-old male presents today for a fo llow-up after cardioversion. He was cardioverted twice. Both times he went into sinus rhythm then about a week later felt like he returned to atrial fibrillation. He reports he has been feeling faitgued and short of breath. He states his blood pressures at home have been up and down between 120 systolic to as high as 170 systolic. He is avoiding salt and only drinks one up of coffee a day. He switched his lasix to every other day due to him feeling faitgue. [facility] Medical History (Updated 01/21/24 @ 13:58 by Hien Guadalupe NP) History of cardioversion AAA (abdominal aortic aneurysm) Diabetes HTN (hypertension) Urinary retention BPH (benign prostatic hyperplasia) Surgical History History of prostate surgery Hx of aortic valve replacement Family History Mother Heart disease HTN (hypertension) Diabetes Father HTN (hypertension) Diabetes Social History Alcohol intake: never Patient Tobacco Use Status: Never used Tobacco Review of Systems Const Denies weakness ENT Denies dizziness Card Denies chest pain, Denies chest pain with activity, Denies syncope, Denies rapid heart rate, Denies pedal edema, Denies edema, Denies leg edema, Denies lighth eadedness, Denies palpitations, Denies dyspnea, Denies dyspnea on exertion and Denies orthopnea Resp Denies cough, Denies dyspnea and Denies dyspnea on exertion GI Denies hematochezia and Denies change in stool character Musc Denies abnormal gait, Denies muscle cramps, Denies muscle weakness, Denies numbness, Denies radiating pain into limb and Denies tingling Neuro Denies abnormal gait, Denies dizziness, Denies syncope, Denies numbness, Denies tingling and Denies weakness Endo Denies palpitations Physical Exam Vital Signs: Last Vital Signs Pulse 60 01/21/24 13:18 BP 178/98 H 01/21/24 13:40 BMI result Body Mass Index 35.6 Office Procedures EKG Details: EKG today. Atrial Fibrillation rate 68 bpm. Atrial Fibrillation with a competing junctional pacemaker. Rightware axis. Low voltage QRS. Septal Infarct, age undetermined. QRS 92ms. QTc 474ms. [id number], Complete Assessment & Plan Assessment & Plan (1) Persistent atrial fibrillation: Code(s): I48.19 - Other persistent atrial fibrillation (2) Heart failure: Code(s): I50.9 - Heart failure, unspecified (3) HTN (hypertension): Code(s): I10 - Essential (primary) hypertension Plan Blood pressure high today. Going to have him get lab work to ensure kidneys return to normal limits. He returned back to atrial fibrillation verified by EKG. Discussed case and EKG with Dr. Pitt and to have him return in 2 weeks to see him. Continue avoidance of salt, caffeine, and daily weights and blood pressure checks. Continue current medications. Will check with insurance regarding Eliquis due to pricing being expensive for patient. Orders: Orders Basic Metabolic Panel Today I10 - Essential (primary) hypertension, I48.19 - Other persistent atrial fibrillation, I50.9 - Heart failure, unspecified Hien Guadalupe NP Medications: Changed From furosemide (Lasix) Take 2 tablets in the morning and 1 in the afternoon; 100 tabs 3RF G47.30 - Sleep apnea, unspecified To furosemide (Lasix) 40 mg PO Q OTHER DAY G47.30 - Sleep apnea, unspecified Coding Level of Care Code Est Pt Level 4 (65266) Diagnoses Persistent atrial fibrillation I48.19 Heart failure I50.9 HTN (hypertension) I10 CPT Codes EKG - CPT: [id number], Complete ([id number])
[2024-01-21 13:18] VITALS: PULSE 60; BMI 35.6
[2024-01-21 13:40] VITALS: BP 178/98
== END 2024-01-21 14:01 | disposition home or self-care (01) ==
PROVIDERS: PCP Internal Medicine; Visit Provider Nurse Practitioner
DX: I48.19 Other persistent atrial fibrillation (principal); I50.9 Heart failure, unspecified; I10 Essential (primary) hypertension
CPT/HCPCS: 93010; 99214

== ENCOUNTER 2024-01-21 13:08 | Outpatient (REF) | payer BC, SELFPAY ==
[2024-01-21 16:15] LABS: Anion Gap 8 (12-20); Blood Urea Nitrogen 22 mg/dL (9-16); Calcium 9.2 mg/dL (8.4-10.2); Carbon Dioxide 26 mmol/L (22-29); Chloride 108 mmol/L (96-108); Estimated Glomerular Filt Rate 48; Glucose Random 111 mg/dL (60-115); Potassium 4.3 mmol/L (3.3-5.1); Sodium 138 mmol/L (135-145)
== END 2024-01-21 13:09 | disposition home or self-care (01) ==
LOC: HO.LAB 13:08
PROVIDERS: PCP Internal Medicine; Visit Provider Nurse Practitioner
DX: I48.19 Other persistent atrial fibrillation (principal); I11.0 Hypertensive heart disease with heart failure; I50.9 Heart failure, unspecified
CPT/HCPCS: 36415; 80048; 93005

== ENCOUNTER 2024-02-01 15:51 | Outpatient (REF) | payer BC, SELFPAY ==
[2024-02-01 16:20] LABS: Anion Gap 11 (12-20); Blood Urea Nitrogen 34 mg/dL (9-16); Calcium 9.3 mg/dL (8.4-10.2); Carbon Dioxide 28 mmol/L (22-29); Chloride 106 mmol/L (96-108); Estimated Glomerular Filt Rate 46; Glucose Random 125 mg/dL (60-115); Potassium 4.3 mmol/L (3.3-5.1); Sodium 141 mmol/L (135-145)
== END 2024-02-01 15:52 | disposition home or self-care (01) ==
LOC: HO.LAB 15:51
PROVIDERS: Visit Provider Nurse Practitioner
DX: I48.20 Chronic atrial fibrillation, unspecified (principal)
CPT/HCPCS: 36415; 80048

== ENCOUNTER 2024-02-02 11:45 | Outpatient (AMB) | payer BC, SELFPAY ==
--- NOTE | 2024-02-02 11:47 | A.OFFVIS_ITS ---
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 He was previously seeing Dr. Robert. He has history of severe aortic valve stenosis underwent bioprosthetic aortic valve replacement with a trifecta valve. This was approximately 4 years ago. His presenting to us because he has dyspnea on exertion ongoing for a year. He has arthritis in his left knee and overall has not been physically active. He is denying any orthopnea or PND. He has peripheral edema and has been using Lasix 40 mg every other day. He takes amlodipine 5 mg daily. No chest discomfort. He is diabetic and has background of hypertension. He is on amlodipine 5 mg and Lasix 40 mg every other day along with lisinopril 40 mg daily. He has been labeled as chronic atrial fibrillation and based on old notes he was on Pradaxa at 1 stage but looks like he has been off anticoagulation. It appears he had left atrial appendage ligation along with aortic valve replacement. 08/25/23: He returns for f/u. He had ech o which has showed preserved LV function and normal bioprosthetic valve function. He is complaining of fatigue. He is saying he sleeps alot more and takes 2-3 naps during the day. He has arthritis in knees which limits his mobility. He has not been taking anticoagulation. He is saying at one stage he was cardioverted and felt more energetic. He is asking if cardioversion is a possibility. 11/24/2023: He returns for follow-up. La visit discussed about cardioversion and started him on Eliquis and amiodarone. Apparently called afterward that he has been having some itching with amiodarone. At that time reported that itching happens after taking amiodarone and improves. He was advised to take some Benadryl and continue amiodarone. At that time it was unclear whether he is going to take amiodarone as he was asking he could be changed to flecainide. It appears he could not come for his cardioversion. He is saying that he missed his appointment somehow. He has been more fatigued and short of breath. He has significant peripheral edema at this point. He was taking Lasix every other day. 02/02/2024: He returns for follow-up. He had cardioversion performed initially which was successful but subsequently developed atrial fibrillation again. He was cardioverted again. Unfortunately he is back in AFib again. He has been on amiodarone 200 mg daily as well as carvedilol 6.25 mg twice a day. He also had some fluctuation in kidney function with some questionable kidney injury but I am suspecting that he has underlying kidney disease. Has been using NSAIDs for knee arthritis for long time. He has never seen Nephrology and I am referring him to Nephrology for further assessment. He is also asking whether he is apixaban can be changed to a different agent because it is too expensive for him to afford. We have checked and Xarelto is definitely cheaper for him and we will change him to an appropriate dose. [facility] Medical History (Updated 02/02/24 @ 12:28 by Isaias Pitt MD) History of cardioversion AAA (abdominal aortic aneurysm) Diabetes HTN (hypertension) Urinary retention BPH (benign prostatic hyperplasia) Surgical History History of prostate surgery Hx of aortic valve replacement Family History Mother Heart disease HTN (hypertension) Diabetes Father HTN (hypertension) Diabetes Social History Alcohol intake: never Patient Tobacco Use Status: Never used Tobacco Review of Systems Const Denies chills, Denies fatigue, Denies fever(s), Denies frequent falls, Denies weakness, Denies weight gain and Denies weight loss ENT Denies dizziness Card Denies chest pain, Denies leg edema, Denies lightheadedness, Denies palpitations, Denies dyspnea and Denies dyspnea on exertion Resp Denies cough, Denies dyspnea and Denies dyspnea on exertion GI Denies hematochezia Musc Denies abnormal gait, Denies muscle weakness, Denies numbness, Denies radiating pain into limb and Denies tingling Neuro Denies abnormal gait, Denies dizziness, Denies frequent falls, Denies numbness, Denies tingling and Denies weakness Endo Denies fatigue and Denies palpitations Physical Exam Vital Signs: Last Vital Signs Pulse 63 02/02/24 11:48 BP 140/90 H 02/02/24 11:48 BMI result Body Mass Index 35.6 GENERAL APPEARANCE: in no acute distress, pleasant. NECK: no carotid bruit, mild jugular venous distention. SKIN: no suspicious lesions, warm and dry. HEART: no murmurs, irregular rate and rhythm. LUNGS: clear to auscultation bilaterally. ABDOMEN: soft, nontender. EXTREMITIES: 1+ edema. PERIPHERAL PULSES: equal. NEUROLOGIC: No gross deficits, AAO X 3 Assessment & Plan Assessment & Plan (1) CKD (chronic kidney disease): Code(s): N18.9 - Chronic kidney disease, unspecified (2) Chronic atrial fibrillation: Code(s): I48.20 - Chronic atrial fibrillation, unspecified (3) Heart failure: Code(s): I50.9 - Heart failure, unspecified Plan Very pleasant 78 year gentleman is here for follow-up. He has symptomatic atrial fibrillation and underwent cardioversion in November as well as December 2023. Unfortunately he is back in atrial fibrillation at this point. He clearly felt better after cardioversion when he was in sinus rhythm. He said he was not short of breath and fatigue but recently started feeling short of breath and fatigue and was noticed to be in AFib again. I have explained to him that he was in atrial fibrillation for long time and this decreases the chances of maintaining sinus rhythm although he has been on good antiarrhythmic therapy with amiodarone at this point. We discussed about ablation and I think he will benefit from AFib ablation because it will decrease his burden for atrial fibrillation in the future. He is agreeable for that and I am referring him to electrophysiology at [facility]. In the meantime he will continue amiodarone. I am increasing the carvedilol to 12.5 mg twice a day. He is asking whether another cardioversion can be attempted. I have explained to him that we can attempted but the chances of maintaining sinus rhythm are little low. He may still consider it and will get back to us. He also is asking whether he can get his knees injected as he is getting significant knee problems and has been using NSAIDs for that purpose. He also has kidney trouble which could be stemming from NSAID use. I have advised him that he should discuss with orthopedic department about their willingness to inject his knees while taking apixaban. If apixaban has to be interrupted then he can not be cardioverted safely for a month unless we do a AURORA. On the other hand if they can inject him without stopping apixaban then cardioversion will be a possibility. He will get back to us after talking to orthopedic. He has not tolerated higher doses of diuretics because he gets dizzy. I think overall he appears euvolemic currently and I will leave him on same medications. His edema is better than before since we stopped the amlodipine. Thank you for allowing me to participate in the care of your patient. Please feel free to contact me if you have any questions. Orders: Referrals Nephrology Referral N18.9 - Chronic kidney disease, unspecified Medications: New carvedilol must administer with a meal/food 12.5 mg PO BID 180 tabs 3RF Discontinued carvedilol must administer with a meal/food Discontinued Reason: None 6.25 mg PO BID 90 days 180 tabs 3RF Coding Level of Care Code Est Pt Level 4 (10939) Diagnoses CKD (chronic kidney disease) N18.9 Chronic atrial fibrillation I48.20 Heart failure I50.9
[2024-02-02 11:48] VITALS: BP 140/90; PULSE 63; BMI 35.6
== END 2024-02-02 12:19 | disposition home or self-care (01) ==
PROVIDERS: PCP Internal Medicine; Visit Provider Internal Medicine Cardiovascular Disease
DX: N18.9 Chronic kidney disease, unspecified (principal); I48.20 Chronic atrial fibrillation, unspecified; I50.9 Heart failure, unspecified
CPT/HCPCS: 99214

== ENCOUNTER → 2024-02-02 11:45 | Outpatient (BNVA) | payer BC, SELFPAY | PROVIDERS: PCP Internal Medicine; Visit Provider Internal Medicine Cardiovascular Disease ==

== ENCOUNTER 2024-03-14 09:56 | Outpatient (AMB) | payer BC, SELFPAY ==
[2024-03-14 09:56] VITALS: BP 178/114; PULSE 72; O2SAT 96; BMI 34.9
--- NOTE | 2024-03-14 09:56 | HO.NEPHOV_ITS ---
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 He has been referred for evaluation of CKD. He has a history of severe aortic stenosis status post bioprosthetic aortic valve replacement with a trifecta valve in 2019. History of chronic atrial fibrillation. History of mild diabetes for which he is on metformin. Baseline serum creatinine is around 1.03 mg/dL as of late 2022. Recently serum creatinine is bumped up to 1.49. He admits to taking ibuprofen quite frequently. Last dose was about 2 days ago. He is also on lisinopril 40 mg which was added about 3 months ago. He is on Lasix 40 mg as well. Today he does have some shortness of breath on exertion. No chest pain no nausea vomiting. No cough. No urinary symptoms. No polyuria polydipsia. He has leg edema No rash. All other systems reviewed He works as a chiropractor. [facility] Medical History (Updated 02/02/24 @ 12:37 by Isaias Pitt MD) Persistent atrial fibrillation History of cardioversion AAA (abdominal aortic aneurysm) Diabetes HTN (hypertension) Urinary retention BPH (benign prostatic hyperplasia) Surgical History History of prostate surgery Hx of aortic valve replacement Family History Mother Heart disease HTN (hypertension) Diabetes Father HTN (hypertension) Diabetes Social History Alcohol intake: never Patient Tobacco Use Status: Never used Tobacco Physical Exam Vital Signs: Last Vital Signs Pulse 72 03/14/24 09:56 BP 178/114 H 03/14/24 09:56 Pulse Ox 96 03/14/24 09:56 Oxygen Delivery Method Room Air 03/14/24 09:56 BMI result Body Mass Index 34.9 Const General: comfortable Nutritional Appearance: well nourished Orientation/consciousness: patient oriented x3 HEENT Head: No normal to inspection Mouth: moist mucous membranes Neck Neck: Yes supple and Yes no JVD Resp Auscultation: clear to auscultation bilaterally, no rales and rub present Cardio Jugular venous distension: no JVD Palpation: no palpable S3 and no palpable S4 Heart sounds: no rubs GI Palpation (GI): Soft to palpation and nontender Percussion: No Fluid wave present General: Yes no CVA tenderness Back/Spine/Pelvis Back: no CVA tenderness Skin General skin exam: no rashes or lesions noted Neuro General: patient oriented x3 Extrem General: No clubbing and Yes edema Results Reviewed Nephrology Results: Sodium 141 mmol/L (135-145) 02/01/24 Potassium 4.3 mmol/L (3.3-5.1) 02/01/24 Chloride 106 mmol/L (96-108) 02/01/24 Carbon Dioxide 28 mmol/L (22-29) 02/01/24 BUN 34 mg/dL (9-16) H 02/01/24 Creatinine 1.49 mg/dL (0.5-1.4) H 02/01/24 Calcium 9.3 mg/dL (8.4-10.2) 02/01/24 Assessment & Plan Assessment & Plan (1) HTN (hypertension): Code(s): I10 - Essential (primary) hypertension Category: Medical (2) CKD (chronic kidney disease): Code(s): N18.9 - Chronic kidney disease, unspecified Category: Medical Plan 78-year-old man with history of severe aortic stenosis status post aortic valve replacement and severe hypertension with chronic kidney disease. He has superimposed STEPHEN due to hypoperfusion. The combination of NSAIDs with MY inhibitors and diuretics could have contributed to hypoperfusion leading to STEPHEN. However obstructive uropathy should be considered as well. Less likely causes including glomerulonephritis and interstitial disease will be ruled out as well. The blood pressure is suboptimal. He has been monitoring his blood pressure at home with a wrist monitor which has shown wide fluctuations. Plan Obtain 24 hour ABP M Check urinalysis along with urine protein creatinine ratio initiated basic serology workup. Avoid NSAIDs. Obtain renal ultrasonogram to assess echogenicity and to rule out obstruction. Encouraged him to keep monitoring his blood pressure at home Stay on low-sodium diet. Return to office in the next few weeks after the above basic workup is completed. Orders: Orders Comprehensive Met. Panel Today I10 - Essential (primary) hypertension, N18.9 - Chronic kidney disease, unspecified Complete Blood Count Auto Diff Today I10 - Essential (primary) hypertension, N18.30 - Chronic kidney disease, stage 3 unspecified, N18.9 - Chronic kidney disease, unspecified UA and rflx microscopic Today I10 - Essential (primary) hypertension, N18.9 - Chronic kidney disease, unspecified Creatinine Urine Today I10 - Essential (primary) hypertension, N05.9 - Unspec ified nephritic syndrome with unspecified morphologic changes, N18.9 - Chronic kidney disease, unspecified US renal BI Today I10 - Essential (primary) hypertension, N18.9 - Chronic kidney disease, unspecified Hemoglobin A1c Today I10 - Essential (primary) hypertension, N18.9 - Chronic kidney disease, unspecified Total Protein Urine Random Today I10 - Essential (primary) hypertension, N18.9 - Chronic kidney disease, unspecified Vitamin D 25-OH (D2 and D3) Today I10 - Essential (primary) hypertension, N18.9 - Chronic kidney disease, unspecified AMB 24 Hour Blood Pressure Monitor PLACEMENT Today I10 - Essential (primary) hypertension Coding Level of Care Code New Pt Level 5 (41273) Diagnoses HTN (hypertension) I10 CKD (chronic kidney disease) N18.9
== END 2024-03-14 10:22 | disposition home or self-care (01) ==
PROVIDERS: PCP Internal Medicine; Referring Provider Internal Medicine Cardiovascular Disease; Visit Provider Internal Medicine Hypertension Specialist
DX: I12.9 Hypertensive chronic kidney disease with stage 1 through stage 4 chronic kidney disease, or unspecified chronic kidney disease (principal); N17.9 Acute kidney failure, unspecified; N18.9 Chronic kidney disease, unspecified; Z95.3 Presence of xenogenic heart valve
CPT/HCPCS: 99205

== ENCOUNTER → 2024-03-14 09:56 | Outpatient (BNVA) | payer BC, SELFPAY | PROVIDERS: PCP Internal Medicine; Referring Provider Internal Medicine Cardiovascular Disease; Visit Provider Internal Medicine Hypertension Specialist ==

== ENCOUNTER 2024-03-22 10:33 | Outpatient (REF) | payer BC, SELFPAY ==
--- NOTE | ~2024-03-22 | US_ITS ---
EXAMINATION: US RETROPERITONEAL LIMITED (RENAL ONLY) CLINICAL INFORMATION: Chronic kidney disease, unspecified. COMPARISON: None available. TECHNIQUE: Real-time imaging of the kidneys. Limited visualization due to bowel gas. FINDINGS: RIGHT KIDNEY: 12.7 x 5.5 x 4.5 cm (SAG x AP x TRV). No hydronephrosis. No renal calculi. Renal cortical thickness is normal. Limited visualization. 8.4 x 6.7 x 7.5 cm right renal mid pole cyst with thin septation and with benign features. There is no indication for follow up imaging. LEFT KIDNEY: 11.8 x 4.9 x 4.3 cm (SAG x AP x TRV). A left renal mid pole 3 mm calculus. Tiny mid pole echogenic focus may represent a nonobstructive calculus versus calcified vessel. No hydronephrosis. Limited visualization. Renal cortical thickness is normal. A 1.2 x 0.9 x 1.1 cm left upper pole renal hypoechoic lesion is poorly visualized and cannot be characterized with ultrasound images. US/US renal BI IMPRESSION: 1. A 1.2 cm left upper pole renal hypoechoic lesion is poorly visualized and cannot be characterized with ultrasound images. Direct correlation with prior images is recommended and, if prior images are provided, an addendum will be dictated. In the absence of prior images, CT scan with intravenous contrast employing renal mass protocol would be recommended for further evaluation. 2. A left renal mid pole 3 mm calculus. Tiny mid pole echogenic focus may represent a nonobstructive calculus versus calcified vessel. No hydronephrosis.
== END 2024-03-22 10:34 | disposition home or self-care (01) ==
LOC: HO.US 10:33
PROVIDERS: PCP Internal Medicine; Visit Provider Internal Medicine Hypertension Specialist
DX: I12.9 Hypertensive chronic kidney disease with stage 1 through stage 4 chronic kidney disease, or unspecified chronic kidney disease (principal); N18.9 Chronic kidney disease, unspecified
CPT/HCPCS: 76775

== ENCOUNTER 2024-04-07 07:57 | Outpatient (REF) | payer BC, SELFPAY ==
[2024-04-07 08:12] LABS: MANUAL DIFF FLAG NO
[2024-04-07 08:45] LABS: Basophils Absolute Auto 0.1 X10*3/uL (0.0-0.2); Basophils Percent Auto 1.1 % (0-2); Eosinophils Absolute Auto 0.3 X10*3/uL (0.0-0.4); Eosinophils Percent Auto 4.6 % (0-4); Hematocrit 40.2 % (42.0-52.0); Hemoglobin 12.6 g/dl (14.0-18.0); Imm Gran Abs Auto 0.03 X10*3/uL (0.00-0.03); Imm Gran Pct Auto 0.6 % (0.0-0.4); Lymphocytes Percent Auto 17.8 % (20-40); Mean Corpuscular HGB Conc 31.3 g/dl (31.0-36.0); Mean Corpuscular Hemoglobin 26.4 pg (27.0-33.0); Mean Corpuscular Volume 84.1 fL (80.0-98.0); Monocytes Absolute Auto 0.5 X10*3/uL (0.1-1.2); Monocytes Percent Auto 8.9 % (2-11); Neutrophils Absolute Auto 3.6 x10*3/uL (2.0-8.3); Platelet Count 176 X10*3/uL (160-400); Red Blood Count 4.78 X10*6/uL (4.60-5.80); Red Cell Distribution Width 15.7 % (11.0-16.0); White Blood Count 5.4 X10*3/uL (4.8-10.8)
[2024-04-07 08:51] LABS: Appearance Urine Cloudy; Color Urine Yellow; Glucose Urine UA Negative (Negative); Leukocyte Esterase Urine Large (3+) (Negative); Nitrite Urine Positive (Negative); PH 6.5 (5.0-9.0); Specific Gravity - Urine 1.015 (1.005-1.025); UMIC TRIGGER UA YES; Urine Blood Small (1+) (Negative); Urine Ketones Negative (Negative); Urine Protein 30 (1+) mg/dL (Neg-Trace)
[2024-04-07 08:59] LABS: Bacteria Urine Trace (None Seen); Hyaline Casts Urine 0-2 /LPF (0-2); Squamous Epithelial Cell Urine 0-2 /HPF (0-2); WBC Urine >50 /HPF (0-5)
[2024-04-07 09:19] LABS: Alanine Aminotransferase 26 U/L (0-40); Alkaline Phosphatase 92 U/L (39-117); Anion Gap 12 (12-20); Aspartate Amino Transferase 25 U/L (5-37); Bilirubin Total 0.7 mg/dL (0.0-1.0); Blood Urea Nitrogen 19 mg/dL (9-16); Calcium 9.1 mg/dL (8.4-10.2); Carbon Dioxide 25 mmol/L (22-29); Chloride 109 mmol/L (96-108); Estimated Glomerular Filt Rate 59; Glucose Random 100 mg/dL (60-115); Potassium 3.6 mmol/L (3.3-5.1); Sodium 142 mmol/L (135-145); Total Protein 6.8 g/dL (6.5-8.0)
[2024-04-07 09:28] LABS: Creatinine Urine 57.82 mg/dL; Total Protein Urine Random 27 mg/dL (<12)
[2024-04-07 09:29] LABS: Estimated Average Glucose 140 mg/dL; Hemoglobin A1c % 6.5 % (<6.0)
[2024-04-11 16:48] LABS: Vitamin D 25-OH, D2 <4 ng/mL; Vitamin D 25-OH, D3 32 ng/mL; Vitamin D 25-OH, Total 32 ng/mL (30-100)
== END 2024-04-07 07:58 | disposition home or self-care (01) ==
LOC: HO.LAB 07:57
PROVIDERS: PCP Internal Medicine; Visit Provider Internal Medicine Hypertension Specialist
DX: I12.9 Hypertensive chronic kidney disease with stage 1 through stage 4 chronic kidney disease, or unspecified chronic kidney disease (principal); N18.30 Chronic kidney disease, stage 3 unspecified
CPT/HCPCS: 36415; 80053; 81001; 82306; 82570; 83036; 84156; 85025

== ENCOUNTER 2024-04-25 16:30 | Outpatient (AMB) | payer BC, SELFPAY ==
[2024-04-25 16:33] VITALS: BP 170/88; PULSE 67; O2SAT 93
--- NOTE | 2024-04-25 16:33 | HO.NEPHOV ---
Vital Signs 04/25/24 16:33 Height 5 ft 10 in BP 170/88 H Blood Pressure Location Rt brachial Position Sitting Pulse 67 Pulse Source Pulse Oximeter Pulse Oximetry (%) 93 Oxygen Delivery Method Room Air Intake Visit Reasons: Follow up/ Conf [employer] Room Attendant Required: No Accompanied by: Self / Same As Patient Allergies amlodipine Adverse Reaction (Intermediate, Uncoded 02/02/24 12:35) Swelling HPI Comments Details: Yoshi is a pleasant 78-year-old man with a history of significant arthritis and hypertension who was found to have chronic kidney disease. He has been referred for evaluation of CKD. He has a history of severe aortic stenosis status post bioprosthetic aortic valve replacement with a trifecta valve in 2019. History of chronic atrial fibrillation. History of mild diabetes for which he is on metformin. Baseline serum creatinine is around 1.03 mg/dL as of late 2022. Recently serum creatinine is bumped up to 1.49. He admits to taking ibuprofen quite frequently. Last dose was about 2 days ago. He is also on lisinopril 40 mg which was added about 3 months ago. He is on Lasix 40 mg as well. Today he does have some shortness of breath on exertion. No chest pain no nausea vomiting. No cough. No urinary symptoms. No polyuria polydipsia. He has leg edema No rash. All other systems reviewed He works as a chiropractor. 04/25/24 Now in a wheelchair Takes Ibuprofen 3 x a day No dyspnea or urinary symptoms [facility] Medical History (Updated 02/02/24 @ 12:37 by Isaias Pitt MD) Persistent atrial fibrillation History of cardioversion AAA (abdominal aortic aneurysm) Diabetes HTN (hypertension) Urinary retention BPH (benign prostatic hyperplasia) Surgical History History of prostate surgery Hx of aortic valve replacement Family History Mother Heart disease HTN (hypertension) Diabetes Father HTN (hypertension) Diabetes Social History Alcohol intake: never Patient Tobacco Use Status: Never used Tobacco Physical Exam Vital Signs: Last Vital Signs Pulse 67 04/25/24 16:33 BP 170/88 H 04/25/24 16:33 Pulse Ox 93 04/25/24 16:33 Oxygen Delivery Method Room Air 04/25/24 16:33 Const General: comfortable Nutritional Appearance: well nourished Orientation/consciousness: patient oriented x3 HEENT Head: No normal to inspection Mouth: moist mucous membranes Neck Neck: Yes supple and Yes no JVD Resp Auscultation: clear to auscultation bilaterally and no rales Cardio Jugular venous distension: no JVD Palpation: no palpable S3 and no palpable S4 Heart sounds: no rubs GI Palpation (GI): Soft to palpation and nontender Percussion: No Fluid wave present General: Yes no CVA tenderness Back/Spine/Pelvis Back: no CVA tenderness Skin General skin exam: no rashes or lesions noted Neuro General: patient oriented x3 Extrem General: No clubbing and Yes edema Results Reviewed Results Reviewed: March 2024 Renal Ultrasound 1. A 1.2 cm left upper pole renal hypoechoic lesion is poorly visualized and cannot be characterized with ultrasound images. Direct correlation with prior images is recommended and, if prior images are provided, an addendum will be dictated. In the absence of prior images, CT scan with intravenous contrast employing renal mass protocol would be recommended for further evaluation. 2. A left renal mid pole 3 mm calculus. Tiny mid pole echogenic focus may represent a nonobstructive calculus versus calcified vessel. No hydronephrosis. Nephrology Results: Hgb 12.6 g/dl (14.0-18.0) L 04/07/24 WBC 5.4 X10*3/uL (4.8-10.8) 04/07/24 Plt Count 176 X10*3/uL (160-400) 04/07/24 Sodium 142 mmol/L (135-145) 04/07/24 Potassium 3.6 mmol/L (3.3-5.1) 04/07/24 Chloride 109 mmol/L (96-108) H 04/07/24 Carbon Dioxide 25 mmol/L (22-29) 04/07/24 BUN 19 mg/dL (9-16) H 04/07/24 Creatinine 1.19 mg/dL (0.5-1.4) 04/07/24 Calcium 9.1 mg/dL (8.4-10.2) 04/07/24 Urine Protein 30 (1+) mg/dL (Neg-Trace) H 04/07/24 Urine Creatinine 57.82 mg/dL 04/07/24 Renal US 03/22/24 Assessment & Plan Assessment & Plan (1) HTN (hypertension): Code(s): I10 - Essential (primary) hypertension Category: Medical (2) CKD (chronic kidney disease): Code(s): N18.9 - Chronic kidney disease, unspecified Category: Medical Plan 78-year-old man with history of severe aortic stenosis status post aortic valve replacement and severe hypertension with chronic kidney disease. superimposed STEPHEN due to hypoperfusion. The combination of NSAIDs with MY inhibitors and diuretics could have contributed to hypoperfusion leading to STEPHEN. No obstructive uropathy based on USG Less likely causes include glomerulonephritis and interstitial disease The blood pressure is suboptimal. He has been monitoring his blood pressure at home with a wrist monitor which has shown wide fluctuations. UA with microhematuria Recently had UTI Plan Obtain 24 hour ABP M Avoid NSAIDs. Would avoid combining Lisinopril with NSAIDS Since he is unable to avoid NSAIDs I will replace lisinopril with hydralazine 25 mg t.i.d.. Titrate hydralazine to optimize blood pressure Would repeat UA and urine culture If there is microhematuria with a negative urine culture, would refer to Urology - especially with ultrasound reporting renal cyst Encouraged him to keep monitoring his blood pressure at home Stay on low-sodium diet. . Orders: Orders Urine Culture 04/25/24 I10 - Essential (primary) hypertension, N18.9 - Chronic kidney disease, unspecified UA and rflx microscopic 04/25/24 I10 - Essential (primary) hypertension, N18.9 - Chronic kidney disease, unspecified Urine Cytology 04/25/24 I10 - Essential (primary) hypertension, N18.9 - Chronic kidney disease, unspecified, R31.9 - Hematuria, unspecified AMB 24 Hour Blood Pressure Monitor PLACEMENT 04/25/24 I10 - Essential (primary) hypertension, N18.9 - Chronic kidney disease, unspecified Medications: New hydralazine 25 mg PO TID 90 tabs 1RF Coding Level of Care Code Est Pt Level 4 (70465) Diagnoses HTN (hypertension) I10 CKD (chronic kidney disease) N18.9
== END 2024-04-25 16:52 | disposition home or self-care (01) ==
PROVIDERS: PCP Internal Medicine; Visit Provider Internal Medicine Hypertension Specialist
DX: I12.9 Hypertensive chronic kidney disease with stage 1 through stage 4 chronic kidney disease, or unspecified chronic kidney disease (principal); N18.9 Chronic kidney disease, unspecified
CPT/HCPCS: 99214

== ENCOUNTER → 2024-04-25 16:30 | Outpatient (BNVA) | payer BC, SELFPAY | PROVIDERS: PCP Internal Medicine; Visit Provider Internal Medicine Hypertension Specialist ==

== ENCOUNTER 2024-11-23 14:14 | Outpatient (REF) | payer BC, SELFPAY ==
[2024-11-23 15:03] LABS: Appearance Urine Cloudy; Color Urine Yellow; Glucose Urine UA Negative (Negative); Leukocyte Esterase Urine Large (3+) (Negative); Nitrite Urine Positive (Negative); Specific Gravity - Urine 1.015 (1.005-1.025); UMIC TRIGGER UA YES; Urine Blood Large (3+) (Negative); Urine Ketones Trace mg/dL (Negative); Urine Protein 30 (1+) mg/dL (Neg-Trace)
[2024-11-23 15:10] LABS: Bacteria Urine None Seen (None Seen); Hyaline Casts Urine 0-2 /LPF (0-2); Squamous Epithelial Cell Urine 0-2 /HPF (0-2); WBC Urine >50 /HPF (0-5)
== END 2024-11-23 14:15 | disposition home or self-care (01) ==
LOC: HO.LAB 14:14
PROVIDERS: PCP Internal Medicine; Visit Provider Nurse Practitioner Family
DX: R39.89 Other symptoms and signs involving the genitourinary system (principal); R33.9 Retention of urine, unspecified; N40.1 Benign prostatic hyperplasia with lower urinary tract symptoms; R33.8 Other retention of urine
CPT/HCPCS: 81001; 87086

== ENCOUNTER 2024-12-19 15:09 | Outpatient (REF) | payer BC, SELFPAY | END 2024-12-19 15:10 | disposition home or self-care (01) | LOC: HO.LAB 15:09 | PROVIDERS: PCP Internal Medicine; Visit Provider Urology | DX: N40.1 Benign prostatic hyperplasia with lower urinary tract symptoms (principal) | CPT/HCPCS: 81003; 87086; 87088; 87186 ==

== ENCOUNTER 2024-12-19 15:09 | Outpatient (AMB) | payer BC, SELFPAY ==
--- NOTE | 2024-12-19 15:11 | MHC.OFFVIS ---
Intake Visit Reasons: follow up- UTI Intake Note: Patient is present for UTI F/U Urology Medication:POTASSIUM Antibiotic Allergy:SULFA Blood Thinner:NONE Steel Division Supervisor Required: No Allergies Sulfa (Sulfonamide Antibiotics) Allergy (Unknown, Verified 12/19/24 15:12) Unknown amlodipine Adverse Reaction (Intermediate, Uncoded 12/19/24 15:12) Swelling HPI Comments Details: Tuan is a pleasant male. He is a patient of Dr. Florence. He is seen for the following urologic condition - urinary retention with BPH - elevated PSA Last seen early 2022 Previously treated finasteride for elevated PSA Last HbA1c 6.5 UA today positive for infection Has been on Levaquin and feels it has not worked Review of Microgen shows prior sensitivity to Augmentin Prescription provided Six-month follow-up check PSA Lower urinary tract symptoms Had required catheterization in hospital for retention June 2021 Describes history of weakness of stream going on for an extended time frame prior to episode of retention Current medications - finasteride PSA - previously up as high as 22 - 03/06 9.9, 08/06 12.7 01/07 4.9 Green[facility] prostatectomy November 2021 - pathology chronic inflammation Therapeutic plan -6 month follow-up PSA [facility] Medical History (Updated 11/13/24 @ 12:16 by DELMI Will) Persistent atrial fibrillation History of cardioversion AAA (abdominal aortic aneurysm) Diabetes HTN (hypertension) Urinary retention BPH (benign prostatic hyperplasia) Surgical History History of prostate surgery Hx of aortic valve replacement Family History Mother Heart disease HTN (hypertension) Diabetes Father HTN (hypertension) Diabetes Social History Alcohol intake: never Patient Tobacco Use Status: Never used Tobacco Review of Systems Const Denies chills and Denies fever(s) Card Reports no additional complaints and Denies syncope Resp Denies cough GI Denies abdominal pain and Denies heartburn Reports as per HPI and Denies change in libido Neuro Denies syncope Psych Denies change in libido Endo Denies change in libido Physical Exam Const General: cooperative, healthy appearing, comfortable and no acute distress Orientation/consciousness: patient oriented x3 HEENT Face and sinus: Yes normal facial exam Mouth: moist mucous membranes Neck Neck: Yes normal visual inspection, Yes full ROM and Yes trachea midline Chest Chest palpation & inspection: normal inspection of the chest Resp Effort & Inspection: normal respiratory effort, able to speak in complete sentences and no respiratory distress GI Inspection: Yes normal to inspection Back/Spine/Pelvis Cervical Spine: normal cervical lordosis Thoracic/Lumbar Spine: thoracic and lumbar spine normal to inspection Skin General skin exam: no rashes or lesions noted Neuro General: patient oriented x3, gait normal, tone normal and moves all extremities Extrem General: Yes normal to inspection and Yes capillary refill normal Results AMB Urinalysis, Automated UA Leukoctes 500 Amy/uL Last Edit by SHAYY Mejía on 12/19/24 15:33 UA Nitrite Positive Last Edit by SHAYY Mejía on 12/19/24 15:33 UA Urobilinogen 0.2 mg/dL Last Edit by SHAYY Mejía on 12/19/24 15:33 UA Protein 300 mg/dL Last Edit by SHAYY Mejía on 12/19/24 15:33 UA pH 6.0 Last Edit by SHAYY Mejía on 12/19/24 15:33 UA Blood 200 Dmitri/uL Last Edit by SHAYY Mejía on 12/19/24 15:33 UA Specific [place] 1.025 Last Edit by SHAYY Mejía on 12/19/24 15:33 UA Ketone Negative Last Edit by SHAYY Mejía on 12/19/24 15:33 UA Bilirubin 0 mg/dL Last Edit by SHAYY Mejía on 12/19/24 15:33 UA Glucose 0 mg/dL Last Edit by SHAYY Mejía on 12/19/24 15:33 Results Reviewed Results Reviewed: Laboratory Last Values Urine pH (Auto) 6.0 12/19/24 15:33 Specific [place] (Auto) 1.025 12/19/24 15:33 Urine Protein (Auto) 300 mg/dL 12/19/24 15:33 Glucose (UA)(Auto) 0 mg/dL 12/19/24 15:33 Urine Ketones (Auto) Negative 12/19/24 15:33 Urine Blood (Auto) 200 Dmitri/uL 12/19/24 15:33 Urine Nitrite (Auto) Positive 12/19/24 15:33 Urine Bilirubin (Auto) 0 mg/dL 12/19/24 15:33 Urine Urobilinogen (Auto) 0.2 mg/dL 12/19/24 15:33 Leukocyte Esterase (Auto) 500 Amy/uL 12/19/24 15:33 Assessment & Plan Assessment & Plan (1) Chronic UTI (urinary tract infection): Code(s): N39.0 - Urinary tract infection, site not specified Category: Medical (2) BPH (benign prostatic hyperplasia): Code(s): N40.0 - Benign prostatic hyperplasia without lower urinary tract symptoms Category: Medical Qualifiers: Lower urinary tract symptom detail: urinary retention Lower urinary tract symptom presence: symptoms present Qualified Code(s): N40.1 - Benign prostatic hyperplasia with lower urinary tract symptoms; R33.8 - Other retention of urine Plan Six-month follow-up PSA Orders: Orders AMB Urinalysis Automated Today Z13.9 - Encounter for screening, unspecified Urine Culture Today N39.0 - Urinary tract infection, site not specified Prostate Specific Antigen 6 Months N40.1 - Benign prostatic hyperplasia with lower urinary tract symptoms, R33.8 - Other retention of urine Medications: New amoxicillin-pot clavulanate 500-125 mg (Augmentin) 1 tab PO Q8H 7 days 21 tabs 0RF N39.0 - Urinary tract infection, site not specified Patient Instructions: This note is constructed using voice recognition software. While every effort has been made to ensure accuracy exec. creative director errors may have been included. Imaging studies, laboratory and physical exam results were discussed and reviewed in detail. No major barriers to patient understanding were identified. An opportunity to ask questions regarding the treatment plan was provided. All questions were answered. The patient expressed understanding and agreement with the above treatment plan. The patient is aware they should contact our office by phone for worsening of their current condition or the appearance of new urologic symptoms. Compliance is encouraged with any medications and followup testing that is ordered. It is a privilege to participate in the urologic care of your patient. If you have any questions or concerns regarding treatment for the above conditions, or other urologic issues, please do not hesitate to contact me. The office telephone contact is [phone]. Sincerely, Dr Lowell Bellamy MD, [facility] - Urology Compassionate Specialist Care for the Genitourinary System Coding Level of Care Code Est Pt Level 4 (11932) Diagnoses Chronic UTI (urinary tract infection) N39.0 BPH (benign prostatic hyperplasia) N40.1; R33.8 Lower urinary tract symptom detail: urinary retention Lower urinary tract symptom presence: symptoms present
== END 2024-12-19 16:07 | disposition home or self-care (01) ==
LOC: HO.HUSH 15:09
PROVIDERS: PCP Internal Medicine; Visit Provider Urology
DX: N39.0 Urinary tract infection, site not specified (principal); N40.1 Benign prostatic hyperplasia with lower urinary tract symptoms; R33.8 Other retention of urine; Z13.9 Encounter for screening, unspecified
CPT/HCPCS: 99214

== ENCOUNTER 2024-12-29 13:22 | Outpatient (AMB) | payer BC, SELFPAY ==
--- NOTE | 2024-12-29 13:43 | MHC.OFFVIS ---
Intake Visit Reasons: prostate microgen Intake Note: Patient is present for PROSTATE MICROGEN Urology Medication:OXYBUTYNIN,POTASSIUM CHLORIDE Antibiotic Allergy:SULFA Blood Thinner:RIVAROXABAN Air Bag Buffer Required: No Allergies Sulfa (Sulfonamide Antibiotics) Allergy (Unknown, Verified 12/29/24 13:46) Unknown amlodipine Adverse Reaction (Intermediate, Uncoded 12/29/24 13:46) Swelling HPI Comments Details: Tuan is a pleasant male. He is a patient of Dr. Florence. He is seen for the following urologic condition - urinary retention with BPH - elevated PSA Last seen early 2022 Previously treated finasteride for elevated PSA Last HbA1c 6.5 UA today positive for infection Has been on Levaquin and feels it has not worked Review of Microgen shows prior sensitivity to Augmentin Prescription provided Six-month follow-up check PSA Lower urinary tract symptoms Had required catheterization in hospital for retention June 2021 Describes history of weakness of stream going on for an extended time frame prior to episode of retention Current medications - finasteride PSA - previously up as high as 22 - 03/06 9.9, 08/06 12.7 01/07 4.9 [facility] prostatectomy November 2021 - pathology chronic inflammation Therapeutic plan -6 month follow-up PSA [facility] Medical History (Updated 11/13/24 @ 12:16 by DELMI Will) Persistent atrial fibrillation History of cardioversion AAA (abdominal aortic aneurysm) Diabetes HTN (hypertension) Urinary retention BPH (benign prostatic hyperplasia) Surgical History History of prostate surgery Hx of aortic valve replacement Family History Mother Heart disease HTN (hypertension) Diabetes Father HTN (hypertension) Diabetes Social History Alcohol intake: never Patient Tobacco Use Status: Never used Tobacco Results AMB Urinalysis, Automated UA Leukoctes 70 Amy/uL Last Edit by SHAYY Mejía on 12/29/24 14:28 UA Nitrite Negative Last Edit by SHAYY Mejía on 12/29/24 14:28 UA Urobilinogen 0.2 mg/dL Last Edit by SHAYY Mejía on 12/29/24 14:28 UA Protein 300 mg/dL Last Edit by SHAYY Mejía on 12/29/24 14:28 UA pH 6.0 Last Edit by Scott Wilburn CCMA on 12/29/24 14:28 UA Blood 200 Dmitri/uL Last Edit by SHAYY Mejía on 12/29/24 14:28 UA Specific [place] 1.025 Last Edit by SHAYY Mejía on 12/29/24 14:28 UA Ketone Negative Last Edit by SHAYY Mejía on 12/29/24 14:28 UA Bilirubin 0 mg/dL Last Edit by SHAYY Mejía on 12/29/24 14:28 UA Glucose 0 mg/dL Last Edit by Scott Wilburn [facility] on 12/29/24 14:28 Assessment & Plan Assessment & Plan Orders: Orders AMB Urinalysis Automated Today Z13.9 - Encounter for screening, unspecified Coding
== END 2024-12-29 14:42 | disposition home or self-care (01) ==
LOC: HO.HUSH 13:22
PROVIDERS: PCP Internal Medicine; Visit Provider Urology
DX: Z13.9 Encounter for screening, unspecified (principal)

== ENCOUNTER → 2024-12-29 13:22 | Outpatient (BNVA) | payer BC, SELFPAY | PROVIDERS: PCP Internal Medicine; Visit Provider Urology | DX: N41.9 Inflammatory disease of prostate, unspecified (principal); N40.1 Benign prostatic hyperplasia with lower urinary tract symptoms; R33.8 Other retention of urine; R97.20 Elevated prostate specific antigen [PSA] | CPT/HCPCS: 81003 ==

== ENCOUNTER 2025-01-05 09:35 | Outpatient (AMB) | payer BC, SELFPAY ==
--- NOTE | 2025-01-05 09:35 | A.OFFVIS_ITS ---
Intake Visit Reasons: 1w follow up Intake Note: Pt presents to the office today as a telehealth for a 1 week follow up Allergies Sulfa (Sulfonamide Antibiotics) Allergy (Unknown, Verified 01/05/25 09:36) Unknown amlodipine Adverse Reaction (Intermediate, Uncoded 12/29/24 13:46) Swelling HPI Comments Details: Tuan is a pleasant male. He is a patient of Dr. Florence. He is seen for the following urologic condition - urinary retention with BPH - elevated PSA - recurrent UTI Telemedicine Evaluation 15 min Consultation [employer] Don Video Follow-up from urine culture recently taken Had been on Levaquin without effect Urine culture Staphylococcus resistant to fluoroquinolones and Bactrim Does report symptoms for number of months Will treat with 2 weeks of Augmentin Last seen early 2022 Previously treated finasteride for elevated PSA Last HbA1c 6.5 UA today positive for infection Has been on Levaquin and feels it has not worked Lower urinary tract symptoms Had required catheterization in hospital for retention June 2021 Describes history of weakness of stream going on for an extended time frame prior to episode of retention Current medications - finasteride PSA - previously up as high as 22 - 03/06 9.9, 08/06 12.7 01/07 4.9 [facility] prostatectomy November 2021 - pathology chronic inflammation Therapeutic plan -6 month follow-up PSA PFS Medical History Persistent atrial fibrillation History of cardioversion AAA (abdominal aortic aneurysm) Diabetes HTN (hypertension) Urinary retention BPH (benign prostatic hyperplasia) Surgical History History of prostate surgery Hx of aortic valve replacement Family History Mother Heart disease HTN (hypertension) Diabetes Father HTN (hypertension) Diabetes Social History Alcohol intake: never Patient Tobacco Use Status: Never used Tobacco Review of Systems Const All systems reviewed & are unremarkable except as noted in HPI and below Reports no additional complaints Resp Reports no additional complaints GI Reports no additional complaints Reports as per HPI Musc Reports no additional complaints Physical Exam Telemedicine evaluation Appropriate responses Regular breathing rate and rhythm HEENT Head: Yes normal to inspection Ears: hearing grossly normal bilaterally Eyes General: appearance normal, both eyes and all related structures Neck Neck: Yes normal visual inspection Chest Chest palpation & inspection: normal inspection of the chest Resp Effort & Inspection: normal respiratory effort and able to speak in complete sentences Telehealth Telehealth Telehealth Platform: [employer] Location of provider rendering services: practice address Location of patient: address on file Patient Identification confirmed using: Name, : Yes Telehealth method: video Patient verbally consented to treatment: Yes Patient verbally consented to billing insurance company: Yes Patient informed of any privacy concerns related to visit: Yes Minutes spent on Phone/Video with Pt.: 15 Assessment & Plan Assessment & Plan (1) Chronic UTI (urinary tract infection): Code(s): N39.0 - Urinary tract infection, site not specified Category: Medical (2) BPH (benign prostatic hyperplasia): Code(s): N40.0 - Benign prostatic hyperplasia without lower urinary tract symptoms Category: Medical Qualifiers: Lower urinary tract symptom detail: urinary retention Lower urinary tract symptom presence: symptoms present Qualified Code(s): N40.1 - Benign prostatic hyperplasia with lower urinary tract symptoms; R33.8 - Other retention of urine Plan Six-month follow-up UA office Medications: New amoxicillin-pot clavulanate 500-125 mg (Augmentin) 1 tab PO Q8H 14 days 42 tabs 0RF N39.0 - Urinary tract infection, site not specified Patient Instructions: This note is constructed using voice recognition software. While every effort has been made to ensure accuracy supply chain engineer errors may have been included. Imaging studies, laboratory and physical exam results were discussed and reviewed in detail. No major barriers to patient understanding were identified. An opportunity to ask questions regarding the treatment plan was provided. All questions were answered. The patient expressed understanding and agreement with the above treatment plan. The patient is aware they should contact our office by phone for worsening of their current condition or the appearance of new urologic symptoms. Compliance is encouraged with any medications and followup testing that is ordered. It is a privilege to participate in the urologic care of your patient. If you have any questions or concerns regarding treatment for the above conditions, or other urologic issues, please do not hesitate to contact me. The office telephone contact is [phone]. Sincerely, Dr Lowell Bellamy MD, [facility] - Urology Compassionate Specialist Care for the Genitourinary System Coding Level of Care Code Tele Est Pt Level 4 (50304) Diagnoses Chronic UTI (urinary tract infection) N39.0 BPH (benign prostatic hyperplasia) N40.1; R33.8 Lower urinary tract symptom detail: urinary retention Lower urinary tract symptom presence: symptoms present
== END 2025-01-05 10:50 | disposition home or self-care (01) ==
LOC: HO.HUSH 09:35
PROVIDERS: PCP Internal Medicine; Visit Provider Urology
DX: N39.0 Urinary tract infection, site not specified (principal); N40.1 Benign prostatic hyperplasia with lower urinary tract symptoms; R33.8 Other retention of urine
CPT/HCPCS: 99214

== ENCOUNTER 2025-04-02 10:56 | Inpatient (IN) | payer BC, SELFPAY ==
[2025-04-02] VITALS (13 sets, daily range): BP systolic 113–160; BP diastolic 57–90; PULSE 64–90; RESP 12–19; TEMP 35.9–37.2; O2SAT 94–100; BMI 37.4; BMI 37.3
--- NOTE | 2025-04-02 | ECG_ITS ---
Test Reason : AMS Blood Pressure : */* mmHG Vent. Rate : 161 BPM Atrial Rate : * BPM P-R Int : * ms QRS Dur : 34 ms QT Int : 224 ms P-R-T Axes : * 252 243 degrees QTcB Int : 366 ms Atrial fibrillation with rapid ventricular response with premature ventricular or aberrantly conducted complexes Low voltage QRS Inferior infarct , age undetermined Anterolateral infarct Abnormal ECG When compared with ECG of 05-Jan-2024 11:02, Significant changes have occurred Referred By: Joel Gould Electronically Signed By:
--- NOTE | ~2025-04-02 | US_ITS ---
EXAMINATION: US TRIPLEX LOWER EXTREMITY, BILATERAL CLINICAL INFORMATION: Edema, lower extremities. COMPARISON: None available. TECHNIQUE: Color-flow triplex imaging with spectral analysis and compression Doppler were performed on the bilateral lower extremities. FINDINGS: Respiratory variation, normal compression and augmented flow are present throughout the interrogated common femoral vein, superficial femoral vein, profunda femoral vein, popliteal vein and midcalf peroneal and posterior tibial venous segments.. There is no Florence's cyst. US/US venous duplex LE BI IMPRESSION: No acute deep venous thrombosis interrogated veins, bilateral lower extremities. Negative for DVT. Electronically signed by: Agustin Marques MD 04/06/2025 11:47 AM EDT
--- NOTE | ~2025-04-02 | CT_ITS ---
EXAMINATION: CT HEAD WITHOUT IV CONTRAST HISTORY: AMS, unwitnessed fall. TECHNIQUE: Unenhanced helical CT of the head was performed per standard departmental protocol. Coronal and sagittal reformats of the head were also evaluated. One or more of the following techniques was used for dose reduction: Automated exposure control, adjustment of the mA and/or kV according to patient size, use of iterative reconstruction technique. DLP: 988 mGy-cm COMPARISON: There are no prior studies for comparison. FINDINGS: BRAIN: There is diffuse prominence of the ventricular system and cortical sulci, consistent with atrophy. Periventricular and subcortical white matter hypodensities are noted which are nonspecific, but often seen in the setting of small vessel ischemic disease. There is no mass effect or midline shift. No intra- or extra-axial fluid collections are identified. SINUSES: There is mucosal thickening in the bilateral maxillary sinuses. The mastoid air cells and middle ear cavities are well pneumatized. ORBITS: The visualized orbits are unremarkable. BONES/SOFT TISSUES: The extracranial soft tissues are unremarkable. The calvarium is intact. No suspicious lytic or sclerotic lesions. CT/CT head/brain wo IV con IMPRESSION: No acute intracranial abnormality. Electronically signed by: Cristo Liriano MD 04/02/2025 12:18 PM EDT
--- NOTE | ~2025-04-02 | XR_ITS ---
EXAMINATION: XR CHEST CLINICAL INFORMATION: weakness COMPARISON: None available. TECHNIQUE: 2 views of the chest were obtained. FINDINGS: Sternal hardware in place. Atrial appendage clip noted. Mild cardiac enlargement. Mitral annular calcification. Aortic mural calcification. Mediastinal and hilar contours appear normal. The lungs are clear bilaterally. There is no pneumothorax. There are small layering bilateral pleural effusions on the lateral projection. There is no focal osseous or soft tissue abnormality. Severe arthritis bilateral shoulder joints and throughout the spine. XR/XR chest 2V IMPRESSION: Small bilateral layering pleural effusions. Cardiomegaly. Prior sternotomy with atrial appendage clip. Otherwise no active pulmonary disease. Electronically signed by: Mike Guadalupe MD 04/02/2025 12:10 PM EDT
--- NOTE | ~2025-04-02 | US_ITS ---
CLINICAL HISTORY: Tenderness RUQ US abdomen limited. COMPARISON: None Technique: Real time sonographic imaging, including color-flow imaging, was performed by the property and equipment clerk. Multiple passenger relations representative static images were saved for review. FINDINGS: The gallbladder is normal in size. No cholelithiasis or sludge identified. There is a negative sonographic Rodriguez's sign. Gallbladder wall: 2-3 mm, normal. Common bile duct: Not identified. No free intraperitoneal fluid identified. IMPRESSION: 1. No evidence of cholecystitis. This document has been electronically signed by: Dinesh Yepez MD on 04/02/2025 17:41:39
--- NOTE | ~2025-04-02 | CT_ITS ---
EXAMINATION: CT ABDOMEN PELVIS WITHOUT IV CONTRAST HISTORY: transaminitis, abd pain COMPARISON: Correlation is made with an ultrasound of the gallbladder performed 04/02/2025. TECHNIQUE: CT scan of the abdomen and pelvis was performed without contrast using standard departmental protocol. Coronal and sagittal reformatted images were generated and reviewed. Oral contrast material was not administered at the request of the referring physician. This CT exam was performed with one or more of the following dose reduction techniques: automated exposure control, adjustment of the mA and/or kV according to patient size, use of iterative reconstruction technique. DLP: 783 mGy-cm FINDINGS: LOWER CHEST: The visualized lung bases are clear. There are small bilateral pleural effusions. CARDIOVASCULATURE: The heart is normal in size. There is mitral annular and aortic annular calcification. There is no pericardial effusion. LIVER: The liver is normal in size and contour. The liver has an unremarkable unenhanced appearance. GALLBLADDER / BILE DUCTS: The gallbladder is unremarkable. There is no intra or extrahepatic biliary ductal dilatation. SPLEEN: The spleen is normal in size and has an unremarkable unenhanced appearance. PANCREAS: The pancreas is atrophic. ADRENAL GLANDS: Unremarkable. KIDNEYS/RETROPERITONEUM: No renal calculi are identified. There is no hydronephrosis. There is a 9.2 cm cyst at the midportion of the right kidney. LYMPH NODES: No retroperitoneal lymphadenopathy is identified in the abdomen or pelvis. VASCULATURE: The abdominal aorta demonstrates atherosclerotic calcification, but is normal in caliber. MESENTERY/PERITONEUM: No free fluid. No masses. There is no free intraperitoneal gas. STOMACH: There is a large amount of debris in the stomach. SMALL BOWEL: The small bowel is normal in caliber. COLON: There is a large amount of stool in the colon. APPENDIX: Normal. URINARY BLADDER/PELVIC ORGANS: There are multiple bladder calculi measuring up to 4.1 cm in size. The prostate is markedly enlarged. BONES / SOFT TISSUES: There is diffuse body wall edema. There is degenerative disc disease of the spine. CT/CT abdomen pelvis wo IV con IMPRESSION: 1. Large amount of stool throughout the colon. 2. Multiple bladder calculi. Markedly enlarged prostate. 3. Small bilateral pleural effusions. Diffuse body wall edema. Electronically signed by: Cristo Liriano MD 04/04/2025 03:12 PM EDT RP
--- NOTE | ~2025-04-02 | CT_ITS ---
EXAMINATION: CT CERVICAL SPINE WITHOUT IV CONTRAST HISTORY: fall, collar cleared. TECHNIQUE: Helical CT of the cervical spine was performed per standard departmental protocol. Coronal and sagittal reformatted images were also evaluated. One or more of the following techniques was used for dose reduction: Automated exposure control, adjustment of the mA and/or kV according to patient size, use of iterative reconstruction technique. DLP: 543 mGy-cm COMPARISON: There are no prior studies for comparison. FINDINGS: CERVICAL SPINE: The vertebral bodies maintain normal height and alignment without evidence of fracture or subluxation. There is severe degenerative disc disease at the C6-7 level, with disc space narrowing and osteophyte formation. More moderate changes are noted at the remaining levels. Evaluation for disc pathology is limited by lack of intrathecal contrast material, however. There are erosions involving the odontoid process of C2. BRAIN: The visualized portion of the brain is unremarkable. SINUSES: The visualized paranasal sinuses, mastoid air cells and middle ear cavities are unremarkable. LUNG APICES: The visualized lung apices are clear. SOFT TISSUES: There are right thyroid nodules. CT/CT cervical spine wo IV con IMPRESSION: No evidence of fracture or malalignment of the cervical spine. Degenerative changes as described. Electronically signed by: Cristo Liriano MD 04/02/2025 12:23 PM EDT
--- NOTE | 2025-04-02 11:17 | ED_ITS ---
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 intake, he is also reporting that he has been treated for recurrent UTI and is currently antibiotics that he is not able to recall however he states he has went through a full, of antibiotics such as ciprofloxacin, Macrobid, and Bactrim, he continues to have dysuria. He lives by himself, when he did not show up to work he was found on the floor covered with feces on a well check. Patient states he does have history of bilateral knee arthritis some difficulty ambulating as well. Denies chest pain or shortness of breath headaches, vision changes weakness in upper or lower extremities, no expressive or receptive aphasia noted, he is currently alert and oriented self, location, year but he is not able to recall what happened and how many days he spent on the floor. And why he was not able to get up etc. no drug or alcohol use listed he takes medications for high blood pressure. MD complaint: altered mental status, confusion and weakness Onset (ago): hour(s) Related Data Home Medications ?Medication ?Instructions ?Recorded ?Confirmed coenzyme Q10 200 mg capsule (Co 200 mg PO DAILY 01/20/23 02/02/24 Q-10) potassium chloride 20 mEq 20 meq PO DAILY 08/25/23 02/02/24 tablet,extended release ibuprofen 200 mg tablet (Advil) 400 mg PO Q8H PRN 03/14/24 Previous Rx's ?Medication ?Instructions ?Recorded hydralazine 25 mg tablet 25 mg PO TID #270 tabs 04/26/24 furosemide 40 mg tablet (Lasix) 40 mg PO Q OTHER DAY #45 tabs 05/10/24 amoxicillin 500 mg-potassium 1 tab PO Q8H 14 days #42 tabs 01/05/25 clavulanate 125 mg tablet (Augmentin) fluconazole 150 mg tablet 150 mg PO Q3D 3 doses #3 tabs 01/15/25 amlodipine 5 mg tablet 5 mg PO BID #180 tabs 01/24/25 lisinopril 40 mg tablet 40 mg PO DAILY #90 tabs 01/24/25 metoprolol succinate 50 mg 50 mg PO DAILY #90 tabs 01/24/25 tablet,extended release 24 hr doxazosin 2 mg tablet 2 mg PO DAILY #60 tabs 01/26/25 fosfomycin tromethamine 3 gram 3 g PO DAILY 3 weeks #21 ea 02/13/25 oral packet Allergies Allergy/AdvReac Type Severity Reaction Status Date / Time Sulfa (Sulfonamide Allergy Unknown Unknown Verified 04/02/25 11:13 Antibiotics) amlodipine AdvReac Intermediate Swelling Uncoded 04/02/25 11:13 Review of Systems 2 Constitutional: Constitutional: Reports as per HPI [facility] Past Medical History Medical History Persistent atrial fibrillation History of cardioversion AAA (abdominal aortic aneurysm) Diabetes HTN (hypertension) Urinary retention BPH (benign prostatic hyperplasia) Surgical History History of prostate surgery Hx of aortic valve replacement Family History Family History Mother Heart disease HTN (hypertension) Diabetes Father HTN (hypertension) Diabetes Social History Social History Alcohol intake: never Patient Tobacco Use Status: Never used Tobacco Smoked in Last 30 Days: No Use of substances other than those prescribed or required for medical reasons: No Advance Directives: No Advance Directives Information Provided: Yes Do you have a plan to hurt others: No Plan Physical Exam ED Vital Signs: Vital Signs - 24 hr 04/02/25 11:07 04/02/25 11:40 Temperature 96.7 F L 97.3 F Pulse Rate 87 74 Respiratory Rate 18 18 Blood Pressure 160/89 H 138/64 Pulse Oximetry 99 100 Oxygen Delivery Method Room Air Room Air BMI result Body Mass Index 37.4 Const Other: * Gen: ?Chronically ill-appearing * HEENT: Dry oral mucosa, no scleral icterus, * Neck: Cervical collar was cleared using nexus criteria * CV: RRR, no obvious murmurs appreciated * Resp: ?No wheezing rales rhonchi no stridor moving air well * Abd: ?Bowel sounds are present, no tenderness no rebound no rigidity, * MSK: FROM, strength 5/5 all extremities * Skin: Warm, dry, intact, no CVA tenderness, no bruising noted to the back, he has chronic venous stasis changes bilateral lower extremity * Neuro: ?Alert and oriented x3, moving upper and lower extremities symmetrically, with obvious loss of power bilateral lower extremities General: cooperative Medications Administered Generic Name Dose Route Start Last Admin Trade Name Freq PRN Reason Stop Dose Admin Lactated Ringer's 1,000 mls @ 0 mls/hr 04/02/25 11:30 04/02/25 11:36 Lr IV 999 mls/hr .Q0M FAUSTO Administration Wide Open Medical Decision Making Medical Decision Making [facility] Narrative: 11:26 I was asked by the nurse to see this patient that was brought in with altered mental status found on home, questionable syncope that led to this event, he is confused about what happened to him at home and was not really aware that he spent 3 days in the floor but at the time of our conversation he is alert to self location, he has no obvious asymmetry of the face or asymmetry of lower extremity upper extremity movement no dysmetria to suspect underlying stroke, other considerations include EtOH though unlikely drug use, though unlikely, syncope, ACS, we will workup for head injury, neck injury though I was able to clear his cervical collar using nexus criteria, rhabdomyolysis, electrolyte derangements, endocrine emergencies , we will evaluate for potential infectious etiologies as well. Ultimately I suspect he will require admission for unwitnessed syncope, failure to thrive, possibly biliary an MRI who. Lab Data [facility] Lab Attestation statement: I reviewed the patient's lab results. 04/02/25 11:33 04/02/25 11:34 Labs: Lab Results 04/02/25 04/02/25 Range/Units 11:33 11:34 WBC 10.1 (4.8-10.8) X10*3/uL RBC 5.18 (4.60-5.80) X10*6/uL Hgb 14.1 (14.0-18.0) g/dl Hct 43.3 (42.0-52.0) % MCV 83.6 (80.0-98.0) fL MCH 27.2 (27.0-33.0) pg MCHC 32.6 (31.0-36.0) g/dl RDW 14.6 (11.0-16.0) % Plt Count 200 (160-400) X10*3/uL MPV 9.4 (9.4-12.4) fL Immature Gran % (Auto) 0.5 H (0.0-0.4) % Neut % (Auto) 84.1 H (45-73) % Lymph % (Auto) 6.3 L (20-40) % [place] % (Auto) 7.2 (2-11) % Eos % (Auto) 1.5 (0-4) % Baso % (Auto) 0.4 (0-2) % Lymph # (Auto) 0.6 L (1.2-4.9) X10*3/uL [place] # (Auto) 0.7 (0.1-1.2) X10*3/uL Eos # (Auto) 0.2 (0.0-0.4) X10*3/uL Baso # (Auto) 0.0 (0.0-0.2) X10*3/uL Abs Immat Gran (auto) 0.05 H (0.00-0.03) X10*3/uL Absolute Neuts (auto) 8.5 H (2.0-8.3) x10*3/uL Absolute Nucleated RBC 0.000 (0.0-0.012) X10*3/uL Nucleated RBC % (auto) 0.0 (0.0-0.2) /100WBC Sodium 144 (135-145) mmol/L Potassium 3.5 (3.3-5.1) mmol/L Chloride 109 H (96-108) mmol/L Carbon Dioxide 23 (22-29) mmol/L Anion Gap 16 (12-20) BUN 21 H (9-16) mg/dL Creatinine 0.78 (0.5-1.4) mg/dL Estim Creat Clear Calc 99.0 Estimated GFR > 60 Random Glucose 83 (60-115) mg/dL Lactic Acid 1.4 (0.5-2.0) mmol/L Calcium 8.8 (8.4-10.2) mg/dL Magnesium 2.1 (1.6-2.6) mg/dL Total Bilirubin 1.8 H (0.0-1.0) mg/dL AST 118 H (5-37) U/L ALT 55 H (0-40) U/L Alkaline Phosphatase 96 (39-117) U/L Ammonia 29 (13-55) umol/L Total Creatine Kinase 1792 H (38-174) U/L Troponin I High Sens 16.8 (<3.5-35.0) ng/L Total Protein 6.2 L (6.5-8.0) g/dL Albumin 3.7 (3.5-5.0) g/dL Lipase 5 L (8-78) U/L TSH 2.95 (0.32-4.0) uIU/mL Ethyl Alcohol 10 mg/dL Influenza Type A (PCR) NEGATIVE (Negative) Influenza Type B (PCR) NEGATIVE (Negative) RSV RNA Qual (PCR) NEGATIVE (Negative) SARS-CoV-2 RNA (RT-PCR) NEGATIVE (Negative) Independent Interpretation I performed an independent interpretation of an: EKG (79 otherwise normal ECG without dysrhythmia, AV colleen blocks or ST-T changes to suspect underlying ACS, my independent interpretation) Radiology Impression Discussion of test interpretation with radiology: I have reviewed the radiologist's reading. (CT head and neck without acute findings) Radiologist Impression: MPRESSION: Small bilateral layering pleural effusions. Cardiomegaly. Prior sternotomy with atrial appendage clip. Otherwise no active pulmonary disease. Discharge Plan Discharge Clinical Impression: Unwitnessed fall, Rhabdomyolysis, Adult failure to thrive Patient Disposition: Admitted As Inpatient Prescriptions: No Action hydralazine 25 mg tablet 25 mg PO TID Qty: 270 2RF furosemide [Lasix] 40 mg tablet 40 mg PO Q OTHER DAY Qty: 45 1RF fluconazole 150 mg tablet 150 mg PO Q3D Qty: 3 0RF amlodipine 5 mg tablet 5 mg PO BID Qty: 180 0RF lisinopril 40 mg tablet 40 mg PO DAILY Qty: 90 0RF metoprolol succinate 50 mg tablet extended release 24 hr 50 mg PO DAILY Qty: 90 0RF doxazosin 2 mg tablet 2 mg PO DAILY Qty: 60 2RF fosfomycin tromethamine 3 gram packet 3 g PO DAILY 21 Days Qty: 21 0RF Rx Instructions: Take one packet daily for 21 days coenzyme Q10 [Co Q-10] 200 mg capsule 200 mg PO DAILY ibuprofen [Advil] 200 mg tablet 400 mg PO Q8H PRN amoxicillin-pot clavulanate [Augmentin] 500-125 mg tablet 1 tab PO Q8H 14 Days Qty: 42 0RF potassium chloride 20 mEq tablet extended release 20 meq PO DAILY Print Language: [place]
--- NOTE | 2025-04-02 11:18 | ECG_ITS ---
Test Reason : FALL Blood Pressure : */* mmHG Vent. Rate : 79 BPM Atrial Rate : * BPM P-R Int : * ms QRS Dur : 88 ms QT Int : 416 ms P-R-T Axes : * 62 35 degrees QTcB Int : 477 ms Atrial fibrillation Low voltage QRS Septal infarct Abnormal ECG When compared with ECG of 02-Apr-2025 11:26, Afib has replaced sinus rhythm Referred By: Joel Gould Electronically Signed By: Isaias Pitt
--- NOTE | 2025-04-02 11:33 | PC.NURSE ---
norbert from home after he was scheduled for work today and didn't show up. patient's staff then went to patient's home for a wellness check and found him seemingly altered and covered in dried up feces. per patient, patient was found laying on the ground for an unknown amount of time. he states, i either fell on or wednesday. pt denies any prodromal sx. unknown headstrike, unknown loc. -thinners. upon ED arrival - patient mostly alert and oriented aside from knowing what presents him to the ED today. answering questions/following commands appropriately. neuros intact. patient's friend, (the one who found him on the floor) states that the patient called her and seemed extremely confused - telling her, i am at the hospital. the hospital looks like [facility] but they have it set up just like my house. it is so weird. the cabinets in the kitchen look exactly the same. this warranted patient's friend to then check on him. upon ED arrival - pt covered in dried up feces throughout. patient cleaned. vss and up to date. rectal thermometer in place - pt afebrile. afib on the monitor - controlled - HR in the 70s. on RA w/o difficulty. patient denies any pain. has no complaints. 18gIV in the left AC via EMS - patent/intact. additional 18gIV placed in the right AC - labs obtained/sent to lab. ekg performed by tech. male purewick in place as pt was previously incontinent. c-collar removed by . pt pending XR/CT to be completed at this time. no sob/wob noted. respirations even/unlabored. plan of care ongoing. call estrada placed within reach.
[2025-04-02] MEDS: Lactated Ringers 1,000 ML 999 ML IV (11:36)
[2025-04-02 11:42] LABS: Basophils Percent Auto 0.4 % (0-2); Eosinophils Absolute Auto 0.2 X10*3/uL (0.0-0.4); Eosinophils Percent Auto 1.5 % (0-4); Hematocrit 43.3 % (42.0-52.0); Hemoglobin 14.1 g/dl (14.0-18.0); Imm Gran Abs Auto 0.05 X10*3/uL (0.00-0.03); Imm Gran Pct Auto 0.5 % (0.0-0.4); Lymphocytes Absolute Auto 0.6 X10*3/uL (1.2-4.9); Lymphocytes Percent Auto 6.3 % (20-40); MANUAL DIFF FLAG NO; Mean Corpuscular HGB Conc 32.6 g/dl (31.0-36.0); Mean Corpuscular Hemoglobin 27.2 pg (27.0-33.0); Mean Corpuscular Volume 83.6 fL (80.0-98.0); Mean Platelet Volume 9.4 fL (9.4-12.4); Monocytes Absolute Auto 0.7 X10*3/uL (0.1-1.2); Monocytes Percent Auto 7.2 % (2-11); Neutrophils Absolute Auto 8.5 x10*3/uL (2.0-8.3); Neutrophils Percent Auto 84.1 % (45-73); Platelet Count 200 X10*3/uL (160-400); Red Blood Count 5.18 X10*6/uL (4.60-5.80); Red Cell Distribution Width 14.6 % (11.0-16.0); White Blood Count 10.1 X10*3/uL (4.8-10.8)
[2025-04-02 11:48] LABS: Ammonia 29 umol/L (13-55)
[2025-04-02 11:54] LABS: Ethanol 10 mg/dL
[2025-04-02 11:57] LABS: Lactic Acid 1.4 mmol/L (0.5-2.0)
[2025-04-02 11:58] LABS: Alanine Aminotransferase 55 U/L (0-40); Albumin Level 3.7 g/dL (3.5-5.0); Alkaline Phosphatase 96 U/L (39-117); Anion Gap 16 (12-20); Aspartate Amino Transferase 118 U/L (5-37); Bilirubin Total 1.8 mg/dL (0.0-1.0); Blood Urea Nitrogen 21 mg/dL (9-16); Calcium 8.8 mg/dL (8.4-10.2); Carbon Dioxide 23 mmol/L (22-29); Chloride 109 mmol/L (96-108); Estimated Glomerular Filt Rate > 60; Glucose Random 83 mg/dL (60-115); Lipase 5 U/L (8-78); Magnesium 2.1 mg/dL (1.6-2.6); Potassium 3.5 mmol/L (3.3-5.1); Sodium 144 mmol/L (135-145); Total Protein 6.2 g/dL (6.5-8.0)
[2025-04-02 12:04] LABS: Troponin-I High Sensitivity 16.8 ng/L (<3.5-35.0)
[2025-04-02 12:17] LABS: TSH reflex Free T4 2.95 uIU/mL (0.32-4.0)
[2025-04-02 12:18] LABS: Influenza A PCR NEGATIVE (Negative); Influenza B PCR NEGATIVE (Negative); Resp Syncy Virus RNA Qual PCR NEGATIVE (Negative); SARS COV2 PCR INHOUSE NEGATIVE (Negative)
--- NOTE | 2025-04-02 12:46 | P.HPHOSP_ITS ---
History of Present Illness Date of Service: 04/02/25 <Pennie Dowell DNP - Last Filed: 04/02/25 16:33> Chief Complaint: Initial admission H&P <Pennie Dowell DNP - Last Filed: 04/02/25 16:33> 79-year-old male with past medical history of AFib, heart failure, arthritis, hypertension, BPH, recurrent UTIs presented to the ED after a syncopal episode. 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 He reports that prior to falling he had been on IV antibiotics for 10 days for a urinary tract infection. He reports that about 6 days into the antibiotics he experienced a loss of appetite and became more weak. He does not remember the events of the fall. On on exam he is alert and oriented appears fatigued. CT scan demonstrated no acute abnormalities, CT cervical spine with degenerative changes no evidence of fracture, his chest x- ray with no active pulmonary disease and small bilateral pleural effusions. Lactic acid 1.4. His CK was elevated 1792, Total Bili 1.8 AST/ALT 118/55. Urinalysis reveals 3+ blood, small Leuk esterase 300+ protein, spec gravity >1.030. Negative nitrates. He received 2 Liters LR in ED, Ceftriaxone 1 gram. <Pennie Dowell DNP - Last Filed: 04/02/25 16:33> Review of Systems 2 Review of Systems: Denies any shortness of breath, chest pain, dizziness, lightheadedness, abdominal pain or discomfort, nausea vomiting or diarrhea. Endorses chronic knee pain, none at present as he is not moving around <Pennie Dowell DNP - Last Filed: 04/02/25 16:33> [facility] Medical History: Medical History Persistent atrial fibrillation History of cardioversion AAA (abdominal aortic aneurysm) Diabetes HTN (hypertension) Urinary retention BPH (benign prostatic hyperplasia) <Shira Wadsworth MD - Last Filed: 04/02/25 12:53> Family History: Family History Mother Heart disease HTN (hypertension) Diabetes Father HTN (hypertension) Diabetes <Shira Wadsworth MD - Last Filed: 04/02/25 12:53> Surgical History: Surgical History History of prostate surgery Hx of aortic valve replacement <Shira Wadsworth MD - Last Filed: 04/02/25 12:53> Social History: Social History Alcohol intake: never Patient Tobacco Use Status: Never used Tobacco Smoked in Last 30 Days: No Use of substances other than those prescribed or required for medical reasons: No Advance Directives: Yes Advance Directives on File: Yes Advance Directives Date on File: 04/02/25 Do you have a plan to hurt others: No Plan Nutrition Risks: No Nutritional Risk <Shria Wadsworth MD - Last Filed: 04/02/25 12:53> Meds Allergies/Adverse reactions: Allergies Allergy/AdvReac Type Severity Reaction Status Date / Time Sulfa (Sulfonamide Allergy Unknown Unknown Verified 04/02/25 11:13 Antibiotics) amlodipine AdvReac Intermediate Swelling Uncoded 04/02/25 11:13 <Shira Wadsworth MD - Last Filed: 04/02/25 12:53> Active Medications: Current Medications Ceftriaxone Sodium (Ceftriaxone Sodium 1 Gm Vial) 1 gm IVPUSH Q12H [facility] Lactated Ringer's (Lr) 1,000 mls @ 0 mls/hr IV .Q0M FAUSTO Last Infusion: 04/02/25 12:41 Dose: Infused <Shira Wadsworth MD - Last Filed: 04/02/25 12:53> Home medications: Home Medications ?Medication ?Instructions ?Recorded ?Confirmed ?Last Taken ?Type potassium chloride 20 mEq 20 meq PO Q48H 08/25/23 04/02/25 03/29/25 History tablet,extended release ibuprofen 200 mg tablet (Advil) 400 mg PO Q8H PRN Pain (Scale 03/14/24 04/02/25 03/29/25 History Score 1-3) amlodipine 5 mg tablet 5 mg PO DAILY 04/02/25 04/02/25 03/29/25 History doxazosin 8 mg tablet 16 mg PO DAILY 0504/02/25 03/29/25 History furosemide 40 mg tablet (Lasix) 40 mg PO Q48H 04/02/25 04/02/25 03/29/25 History <Shira Wadsowrth MD - Last Filed: 04/02/25 12:53> Physical Exam 2 Vital Signs and Narrative: Vital Signs: Last Vital Signs Temp 97.3 F 04/02/25 11:40 Pulse 74 04/02/25 11:40 Resp 18 04/02/25 11:40 BP 138/64 04/02/25 11:40 Pulse Ox 100 04/02/25 11:40 O2 Del Method Room Air 04/02/25 11:40 BMI result Body Mass Index 37.4 <Shira Wadsworth MD - Last Filed: 04/02/25 12:53> Alert and oriented X3, able to give good history. Appears weak and fatigued. Neuro: CN II-X11 intact, no deficits, visual acuity intact ENT: hearing intact, uvula midline, Lips dry Cardiac: S1 S2 RRR, 1-2 + edema in Lower ext. Pulmonary: lungs clear to auscultation, No increased WOB. Abdominal: BS active in all 4 quadrants, no guarding, tenderness to RUQ with palpitation, no rebound tenderness. + obese abdomen MSK: Strength 5/5 upper and lower extremities : no CVA tenderness no bladder distension Extremities: Bilateral lower legs red and warm, dry skin. PT and DP pulses palpable +2 Psych: mood stable, judgment and insight good Skin: Warm and dry <Pennie Dowell DNP - Last Filed: 04/02/25 16:33> Results Labs CBC and Chem 7: 04/02/25 11:33 04/02/25 11:34 <Shira Wadsworth MD - Last Filed: 04/02/25 12:53> Labs: Laboratory Results - last 24 hr 04/02/25 04/02/25 11:33 11:34 MCV 83.6 MCH 27.2 MCHC 32.6 RDW 14.6 Plt Count 200 MPV 9.4 Immature Gran % (Auto) 0.5 H Neut % (Auto) 84.1 H Lymph % (Auto) 6.3 L [place] % (Auto) 7.2 Eos % (Auto) 1.5 Baso % (Auto) 0.4 Lymph # (Auto) 0.6 L [place] # (Auto) 0.7 Eos # (Auto) 0.2 Baso # (Auto) 0.0 Abs Immat Gran (auto) 0.05 H Absolute Neuts (auto) 8.5 H Absolute Nucleated RBC 0.000 Nucleated RBC % (auto) 0.0 Anion Gap 16 Estim Creat Clear Calc 99.0 Estimated GFR > 60 Random Glucose 83 Lactic Acid 1.4 Calcium 8.8 Magnesium 2.1 Total Bilirubin 1.8 H AST 118 H ALT 55 H Alkaline Phosphatase 96 Ammonia 29 Total Creatine Kinase 1792 H Total Protein 6.2 L Albumin 3.7 Lipase 5 L TSH 2.95 Ethyl Alcohol 10 Influenza Type A (PCR) NEGATIVE Influenza Type B (PCR) NEGATIVE RSV RNA Qual (PCR) NEGATIVE SARS-CoV-2 RNA (RT-PCR) NEGATIVE <Shira Wadsworth MD - Last Filed: 04/02/25 12:53> Imaging Radiologist's Impressions: Impressions Chest X-Ray 04/02/25 11:19 IMPRESSION: Small bilateral layering pleural effusions. Cardiomegaly. Prior sternotomy with atrial appendage clip. Otherwise no active pulmonary disease. Electronically signed by: Mike Guadalupe MD 04/02/2025 12:10 PM EDT RP Cervical Spine CT 04/02/25 11:46 IMPRESSION: No evidence of fracture or malalignment of the cervical spine. Degenerative changes as described. Electronically signed by: Cristo Liriano MD 04/02/2025 12:23 PM EDT RP Head CT 04/02/25 11:46 IMPRESSION: No acute intracranial abnormality. Electronically signed by: Cristo Liriano MD 04/02/2025 12:18 PM EDT RP <Shira Wadsworth MD - Last Filed: 04/02/25 12:53> Assessment and Plan (1) Rhabdomyolysis: Qualifiers: Rhabdomyolysis type: non-traumatic Qualified Code(s): M 62.82 - Rhabdomyolysis <Shira Wadsworth MD - Last Filed: 04/02/25 12:53> Status: Acute <Shira Wadsworth MD - Last Filed: 04/02/25 12:53> 79 year old male presented to ED after an unwitnessed fall in which he was on the floor for three days. Does not recall events of the fall. Reports that he became weak and lost his appetite for about 4 days prior to the fall. Unwitnessed fall/FTT Head, cervical spine CT scan with no acute findings. Check Orthostatic Blood pressure. Physical therapy to evaluate Rhabdomyolysis Initial CK 1792, Total Bili 1.8 AST/ALT 118/55 consistent with known Rhabdo. Continue LR, Follow labs. Transaminitis Patient with tenderness to RUQ with exam. Check US to rule out Recurrent UTI's/Hematuria/BPH/History of CKD S/P 10 day course of Ertapenem as an outpatient Hold further ABT for now. BC and UA pending Followed by Dr. Bellamy Continue Doxazosin Due to concerns of hematuria. Will hold lovenox. AFIB/History of biprosthetic valve/HF//HTN SP cardioversion in 2020 HR controlled on Metoprolol Hold Lasix and Potassium- Follow labs. Hold Lisinopril Continue Norvasc and Hydralazine for HTN management DVT prophylaxis- Sequentials CODE Status FULL CODE Patient will need overnight hospital stay due to acute rhabdo and IV fluids and monitoring of final cultures and need for ABT. <Pennie Dowell DNP - Last Filed: 04/02/25 16:33> Quality Stroke Does the patient have a stroke diagnosis?: No <Pennie Dowell DNP - Last Filed: 04/02/25 16:33> VTE Prior VTE?: No <Pennie Dowell DNP - Last Filed: 04/02/25 16:33> VTE Risk Level:: Medical - moderate - high <Shira Wadsworth MD - Last Filed: 04/02/25 12:53> VTE Device Contraindication: Treatment Not Indicated <Shira Wadsworth MD - Last Filed: 04/02/25 12:53> N/A - Device Ordered <Pennie Dowell DNP - Last Filed: 04/02/25 16:33> VTE Drug Contraindication: N/A - Med Ordered <Shira Wadsworth MD - Last Filed: 04/02/25 12:53> Treatment Not Indicated <Pennie Delmer, DNP - Last Filed: 04/02/25 16:33>
[2025-04-02] MEDS: cefTRIAXone sodium 1 GM VIAL IVPUSH (12:58)
[2025-04-02] MEDS: Enoxaparin Sodium 40 MG/0.4 ML SYRINGE SUBCUT (12:59)
[2025-04-02] MEDS: Lactated Ringers 1,000 ML 100 ML IVCONT ×2 (12:59→23:29)
--- NOTE | 2025-04-02 13:00 | PC.NURSE ---
vss and up to date at this time. nsr on the youth nutritional monitor. medication administered per provider order. LR infusing @ 100mls/hr. pt otherwise offers no complaints. denies pain. pt notified/aware in regards to plan of care/being admitted. pt continues to rest on RA w/o difficulty. no sob/wob noted. respirations even/unlabored. friends bedside for support. plan of care ongoing. call estrada placed within reach.
--- NOTE | 2025-04-02 14:07 | PHA.MEDREC ---
Pharmacy Consult ? Medication Reconciliation Pharmacy has completed the medication reconciliation. Spoke to patient at bedside, he knew his medications well. States he takes Doxazosin 8mg tabs and takes two once daily for 16mg. He also only takes his potassium chloride only on the days he takes the furosemide. He takes various non-formulary supplements but says it will be okay if he misses a few days while he's here.
[2025-04-02 15:48] LABS: Appearance Urine Cloudy; Color Urine DK YELLOW; Glucose Urine UA Negative (Negative); Leukocyte Esterase Urine Small (1+) (Negative); Nitrite Urine Negative (Negative); Specific Gravity - Urine >= 1.030 (1.005-1.025); UMIC TRIGGER UACC YES; Urine Blood Large (3+) (Negative); Urine Ketones >=80 mg/dL (Negative); Urine Protein 300 (3+) mg/dL (Neg-Trace)
[2025-04-02 16:11] LABS: Bacteria Urine None Seen (None Seen); Hyaline Casts Urine 0-2 /LPF (0-2); RBC Urine >20 /HPF (0-2); UACC Culture Trigger YES; WBC Urine >50 /HPF (0-5)
[2025-04-02] MEDS: Metoprolol Succinate ER 50 MG TAB.ER.24H PO (16:41)
[2025-04-02] MEDS: Acetaminophen 325 MG TABLET 650 MG PO (16:41)
[2025-04-02] MEDS: amLODIPine Besylate 5 MG TABLET PO (16:41)
[2025-04-02] MEDS: hydrALAZINE HCl 25 MG TABLET PO (20:40)
[2025-04-03] VITALS (9 sets, daily range): BP systolic 117–164; BP diastolic 65–93; PULSE 46–75; RESP 16–18; TEMP 36.2–36.8; O2SAT 96–99
[2025-04-03] MEDS: cefTRIAXone sodium 1 GM VIAL IVPUSH ×2 (01:43→12:47)
[2025-04-03 06:33] LABS: MANUAL DIFF FLAG NO
[2025-04-03 06:40] LABS: Basophils Absolute Auto 0.1 X10*3/uL (0.0-0.2); Basophils Percent Auto 0.6 % (0-2); Eosinophils Absolute Auto 0.4 X10*3/uL (0.0-0.4); Eosinophils Percent Auto 4.3 % (0-4); Hematocrit 35.9 % (42.0-52.0); Hemoglobin 11.9 g/dl (14.0-18.0); Imm Gran Abs Auto 0.04 X10*3/uL (0.00-0.03); Imm Gran Pct Auto 0.5 % (0.0-0.4); Lymphocytes Absolute Auto 0.8 X10*3/uL (1.2-4.9); Lymphocytes Percent Auto 8.5 % (20-40); Mean Corpuscular HGB Conc 33.1 g/dl (31.0-36.0); Mean Corpuscular Hemoglobin 27.3 pg (27.0-33.0); Mean Corpuscular Volume 82.3 fL (80.0-98.0); Mean Platelet Volume 9.5 fL (9.4-12.4); Monocytes Absolute Auto 0.9 X10*3/uL (0.1-1.2); Monocytes Percent Auto 9.8 % (2-11); Neutrophils Absolute Auto 6.7 x10*3/uL (2.0-8.3); Neutrophils Percent Auto 76.3 % (45-73); Platelet Count 180 X10*3/uL (160-400); Red Blood Count 4.36 X10*6/uL (4.60-5.80); Red Cell Distribution Width 14.9 % (11.0-16.0); White Blood Count 8.8 X10*3/uL (4.8-10.8)
[2025-04-03 06:52] LABS: Alanine Aminotransferase 57 U/L (0-40); Alkaline Phosphatase 73 U/L (39-117); Anion Gap 10 (12-20); Aspartate Amino Transferase 99 U/L (5-37); Bilirubin Total 1.1 mg/dL (0.0-1.0); Blood Urea Nitrogen 23 mg/dL (9-16); Calcium 8.2 mg/dL (8.4-10.2); Carbon Dioxide 24 mmol/L (22-29); Chloride 109 mmol/L (96-108); Estimated Glomerular Filt Rate > 60; Glucose Random 109 mg/dL (60-115); Potassium 3.6 mmol/L (3.3-5.1); Sodium 139 mmol/L (135-145); Total Protein 5.2 g/dL (6.5-8.0)
[2025-04-03] MEDS: Doxazosin Mesylate 2 MG TABLET 16 MG PO (09:22)
[2025-04-03] MEDS: amLODIPine Besylate 5 MG TABLET PO (09:22)
[2025-04-03] MEDS: Lactated Ringers 1,000 ML 100 ML IVCONT ×2 (09:23→22:26)
[2025-04-03] MEDS: hydrALAZINE HCl 25 MG TABLET PO ×3 (09:23→20:49)
[2025-04-03] MEDS: Ammonium Lactate 12 % Lotion 226 GM BOTTLE 1 APPL TOPICAL ×2 (09:23→20:53)
[2025-04-03] MEDS: Metoprolol Succinate ER 50 MG TAB.ER.24H PO (09:23)
[2025-04-03] MEDS: 0.9 % Sodium Chloride Flush 3 ML SYRINGE IVFLUSH ×2 (09:23→20:51)
[2025-04-03] MEDS: Ibuprofen 400 MG TABLET PO ×2 (09:34→15:41)
--- NOTE | 2025-04-03 13:42 | MHC.CM.PN ---
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 P.T. RECOMMENDING ACUTE REHAB AND [facility] AND [facility], KAMALJIT IS NOT CONTRACTED W/PT'S INSURANCE. PT UNDECIDED IF HE WANTS TO GO TO [place] AND WANTS TO GO HOME W/OUT SERVICES, PT REPORTS HE HAS A GYM IN [place] W/12 STAIRS AND IS UNREALISTIC ABOUT ABILITIES, CM ENCOURAGED PT TO CONT TO WORK W/PT AND PRACTICE STAIRS IF HE IS CONSIDERING RETURNING TO HOME. PT ALSO DENIES HAVING A PCP AND REPORTS IN THE PAST HAS USED A ANIMAL HUSBANDRY MANAGER DOCTOR IN THE PAST, [facility] PROVIDER LIST PROVIDED. HCP ON FILE VERIFIED.
--- NOTE | 2025-04-03 14:54 | P.PNIM_ITS ---
Subjective Subjective Date of Service: 04/03/25 Interval History: seen and evaluated feels better CK trending down reports muscle pain and weakness no other events Review of Systems Review of Systems: Yes all other systems are reviewed and are negative Physical Exam 2 Vital Signs: Vital Signs: Last Vital Signs Temp 97.1 F 04/03/25 11:27 Pulse 46 L 04/03/25 12:44 Resp 16 04/03/25 11:27 BP 120/72 04/03/25 11:27 Pulse Ox 99 04/03/25 11:27 O2 Del Method Room Air 04/03/25 11:27 O2 Flow Rate 2 04/03/25 03:26 BMI result Body Mass Index 37.3 Const: Other: Constitutional : Awake, interactive, not in distress Neck : Normal inspection, Supple Cardiovascular : RRR, no JVP, no lower extremity edema Respiratory : good bilateral air entry, no crackles, wheezes or rhonchi Gastrointestinal: soft, lax, Normal bowel sounds, Non tender Skin : Warm, Dry, lower extremities dry skin and dry wound Neurological : Alert & oriented x3, No focal deficit Objective Data Active Medications Acetaminophen (Acetaminophen 325 Mg Tablet) 650 mg PO Q6H PRN PRN Reason: Pain, Mild 1-3,fever,headache Last Admin: 04/02/25 16:41 Dose: 650 mg Documented By: BURAK Amlodipine Besylate (Amlodipine Besylate 5 Mg Tablet) 5 mg PO DAILY [facility]; Protocol Last Admin: 04/03/25 09:22 Dose: 5 mg Documented By: JACQUELINE Calcium Carbonate (Calcium Carbonate 750 Mg Tab.Chew) 750 mg PO Q4H PRN PRN Reason: Heartburn Ceftriaxone Sodium (Ceftriaxone Sodium 1 Gm Vial) 1 gm IVPUSH Q12H [facility] Last Admin: 04/03/25 12:47 Dose: 1 gm Documented By: JACQUELINE Doxazosin Mesylate (Doxazosin Mesylate 2 Mg Tablet) 16 mg PO DAILY [facility]; Protocol Last Admin: 04/03/25 09:22 Dose: 16 mg Documented By: JACQUELINE Hydralazine HCl (Hydralazine Hcl 25 Mg Tablet) 25 mg PO TID [facility]; Protocol Last Admin: 04/03/25 09:23 Dose: 25 mg Documented By: JACQUELINE Lactated Ringer's (Lr) 1,000 mls @ 0 mls/hr IV .Q0M [facility] Last Infusion: 04/02/25 23:28 Dose: Infused Documented By: VICTOR HUGO Lactated Ringer's (Lr) 1,000 mls @ 100 mls/hr IVCONT .Q10H [facility] Last Admin: 04/03/25 09:23 Dose: 100 mls/hr Documented By: JACQUELINE Ibuprofen (Ibuprofen 400 Mg Tablet) 400 mg PO Q6H PRN PRN Reason: Pain, Moderate(Pain Scale 4-6) Last Admin: 04/03/25 09:34 Dose: 400 mg Documented By: JACQUELINE Lactic Acid (Ammonium Lactate 12 % Lotion 226 Gm Bottle) 1 appl TOPICAL BID [facility]; Protocol Last Admin: 04/03/25 09:23 Dose: 1 appl Documented By: JACQUELINE Magnesium Hydroxide (Milk Of Magnesia 30 Ml Oral.Susp) 30 ml PO DAILY PRN PRN Reason: Constipation Melatonin (Melatonin 3 Mg Tablet) 6 mg PO BEDTIME PRN PRN Reason: Insomnia Metoprolol Succinate (Metoprolol Succinate Er 50 Mg Tab.Er.24h) 50 mg PO DAILY [facility]; Protocol Last Admin: 04/03/25 09:23 Dose: 50 mg Documented By: JACQUELINE Ondansetron HCl (Ondansetron Hcl 4 Mg/2 Ml Vial) 4 mg IVPUSH Q8H PRN PRN Reason: Nausea and Vomiting Sodium Chloride (0.9 % Sodium Chloride Flush 3 Ml Syringe) 3 ml IVFLUSH QSHIFT [facility] Last Admin: 04/03/25 09:23 Dose: 3 ml Documented By: JACQUELINE Labs 04/03/25 06:12 04/03/25 06:12 Labs: Laboratory Results - last 24 hr 04/02/25 04/03/25 15:38 06:12 MCV 82.3 MCH 27.3 MCHC 33.1 RDW 14.9 Plt Count 180 MPV 9.5 Immature Gran % (Auto) 0.5 H Neut % (Auto) 76.3 H Lymph % (Auto) 8.5 L [place] % (Auto) 9.8 Eos % (Auto) 4.3 H Baso % (Auto) 0.6 Lymph # (Auto) 0.8 L [place] # (Auto) 0.9 Eos # (Auto) 0.4 Baso # (Auto) 0.1 Abs Immat Gran (auto) 0.04 H Absolute Neuts (auto) 6.7 Absolute Nucleated RBC 0.000 Nucleated RBC % (auto) 0.0 Anion Gap 10 L Estim Creat Clear Calc 103.0 Estimated GFR > 60 Random Glucose 109 Calcium 8.2 L D Total Bilirubin 1.1 H AST 99 H ALT 57 H Alkaline Phosphatase 73 Total Creatine Kinase 1324 H Total Protein 5.2 L Albumin 3.0 L Urine Color DK YELLOW Urine Appearance Cloudy Urine pH 6.0 Ur Specific [place] >= 1.030 H Urine Protein 300 (3+) H Urine Glucose (UA) Negative Urine Ketones >=80 Urine Blood Large (3+) H Urine Nitrite Negative Ur Leukocyte Esterase Small (1+) H Urine RBC >20 H Urine WBC >50 H Ur Squamous Epith Cells 3-5 Urine Bacteria None Seen Hyaline Casts 0-2 Urine Yeast Present Microbiology Microbiology Results: Microbiology 04/02/25 12:47 Blood Culture - Preliminary Blood - Venous No growth after 24 hours. 04/02/25 11:33 Blood Culture - Preliminary Blood - Venous No growth after 24 hours. 04/02/25 16:11 Urine Culture - Preliminary Urine clean catch - Clean Catch Midstream No growth to date. Assessment and Plan (1) Adult failure to thrive: Status: Acute (2) Rhabdomyolysis: Status: Acute (3) Unwitnessed fall: Status: Acute Plan 79 year old male presented to ED after an unwitnessed fall in which he was on the floor for three days. Does not recall events of the fall. Reports that he became weak and lost his appetite for about 4 days prior to the fall. Unwitnessed fall/FTT Head, cervical spine CT scan with no acute findings. Orthostatic Blood pressure stable Noted to have Bradycardia on Telemetry, monitor for any pauses\arrythmias Hold Metoprolol for now and restart at lower dose Physical therapy eval Rhabdomyolysis CK trending down Continue LR Follow labs amd I\O Transaminitis Patient with tenderness to RUQ, resolved today US negative for CCY trending down, likely all related to Rhabdo Recurrent UTI's/Hematuria/BPH/History of CKD S/P 10 day course of Ertapenem as an outpatient Hold further ABx for now BC and UA pending Followed by Dr. Bellamy Continue Doxazosin reported hematuria on admission and UA. Will hold lovenox. Persistent AFIB/History of bioprosthetic valve SP cardioversion in 2020 HR controlled on Metoprolol not on AC Hold Lasix and Potassium- Follow labs. Hold Lisinopril HTN Continue Norvasc and Hydralazine DVT prophylaxis- Sequentials CODE Status FULL CODE Patient will need overnight hospital stay due to acute rhabdo and IV fluids and monitoring of final cultures and need for ABT. Quality Stroke Does the patient have a stroke diagnosis?: No VTE Prior VTE?: No VTE Risk Level:: Medical - moderate - high VTE Device Contraindication: N/A - Device Ordered VTE Drug Contraindication: Treatment Not Indicated
[2025-04-04] VITALS (8 sets, daily range): BP systolic 112–172; BP diastolic 81–90; PULSE 51–82; RESP 16–20; TEMP 36.5–37; O2SAT 97–99
[2025-04-04] MEDS: cefTRIAXone sodium 1 GM VIAL IVPUSH ×2 (00:41→12:23)
[2025-04-04] MEDS: Ibuprofen 400 MG TABLET PO ×2 (01:08→20:44)
[2025-04-04 07:41] LABS: Anion Gap 11 (12-20); Blood Urea Nitrogen 19 mg/dL (9-16); Calcium 8.4 mg/dL (8.4-10.2); Carbon Dioxide 26 mmol/L (22-29); Chloride 108 mmol/L (96-108); Creatinine Clr Calc Pharmacy 95.3; Estimated Glomerular Filt Rate > 60; Glucose Random 116 mg/dL (60-115); Potassium 3.8 mmol/L (3.3-5.1); Sodium 141 mmol/L (135-145)
[2025-04-04] MEDS: Lactated Ringers 1,000 ML 100 ML IVCONT (09:11)
[2025-04-04] MEDS: Doxazosin Mesylate 2 MG TABLET 16 MG PO (09:12)
[2025-04-04] MEDS: amLODIPine Besylate 5 MG TABLET PO (09:19)
[2025-04-04] MEDS: hydrALAZINE HCl 25 MG TABLET PO ×3 (09:19→20:44)
[2025-04-04] MEDS: 0.9 % Sodium Chloride Flush 3 ML SYRINGE IVFLUSH ×3 (09:25→20:44)
--- NOTE | 2025-04-04 11:17 | MHC.CM.PN ---
EMR REVIEWED, OT/PT RECOMMENDING ACUTE REHAB, [facility] IS ONLY [place] INTERESTED, REF UPDATED AND PT AWAITING CARDIO/NEURO AND WOUND CONSULTS, CM WILL CONT TO FOLLOW DC NEEDS.
--- NOTE | 2025-04-04 11:47 | HO.PM.IMPN ---
Subjective Subjective Date of Service: 04/04/25 Interval History: no new complaints Physical Exam Vital Signs: Vital Signs: Last Vital Signs Temp 98.2 F 04/04/25 10:50 Pulse 78 04/04/25 10:50 Resp 20 04/04/25 10:50 BP 112/81 04/04/25 10:50 Pulse Ox 99 04/04/25 10:50 O2 Del Method Room Air 04/04/25 10:50 O2 Flow Rate 2 04/03/25 03:26 BMI result Body Mass Index 37.3 General: AO X 3, no acute distress Resp: CTA bilateral, no accessory muscles used CVS: S1,S2,RRR, edema GI: soft, non tender, non distended Neuro: motor grossly intact, alert Psych: appropriate affect, appropriate insight Objective Data Active Medications Acetaminophen (Acetaminophen 325 Mg Tablet) 650 mg PO Q6H PRN PRN Reason: Pain, Mild 1-3,fever,headache Last Admin: 04/02/25 16:41 Dose: 650 mg Documented By: BURAK Amlodipine Besylate (Amlodipine Besylate 5 Mg Tablet) 5 mg PO DAILY [facility]; Protocol Last Admin: 04/04/25 09:19 Dose: 5 mg Documented By: MAGGIE Calcium Carbonate (Calcium Carbonate 750 Mg Tab.Chew) 750 mg PO Q4H PRN PRN Reason: Heartburn Ceftriaxone Sodium (Ceftriaxone Sodium 1 Gm Vial) 1 gm IVPUSH Q12H [facility] Last Admin: 04/04/25 00:41 Dose: 1 gm Documented By: AMRIT Doxazosin Mesylate (Doxazosin Mesylate 2 Mg Tablet) 16 mg PO DAILY [facility]; Protocol Last Admin: 04/04/25 09:12 Dose: 16 mg Documented By: MAGGIE Hydralazine HCl (Hydralazine Hcl 25 Mg Tablet) 25 mg PO TID [facility]; Protocol Last Admin: 04/04/25 09:19 Dose: 25 mg Documented By: MAGGIE Lactated Ringer's (Lr) 1,000 mls @ 100 mls/hr IVCONT .Q10H [facility] Last Admin: 04/04/25 09:11 Dose: 100 mls/hr Documented By: MAGGIE Ibuprofen (Ibuprofen 400 Mg Tablet) 400 mg PO Q6H PRN PRN Reason: Pain, Moderate(Pain Scale 4-6) Last Admin: 04/04/25 01:08 Dose: 400 mg Documented By: AMRIT Lactic Acid (Ammonium Lactate 12 % Lotion 226 Gm Bottle) 1 appl TOPICAL BID [facility]; Protocol Last Admin: 04/03/25 20:53 Dose: 1 appl Documented By: AMRIT Magnesium Hydroxide (Milk Of Magnesia 30 Ml Oral.Susp) 30 ml PO DAILY PRN PRN Reason: Constipation Melatonin (Melatonin 3 Mg Tablet) 6 mg PO BEDTIME PRN PRN Reason: Insomnia Metoprolol Succinate (Metoprolol Succinate Er 50 Mg Tab.Er.24h) 50 mg PO DAILY [facility]; Protocol Last Admin: 04/03/25 09:23 Dose: 50 mg Documented By: JACQUELINE Ondansetron HCl (Ondansetron Hcl 4 Mg/2 Ml Vial) 4 mg IVPUSH Q8H PRN PRN Reason: Nausea and Vomiting Sodium Chloride (0.9 % Sodium Chloride Flush 3 Ml Syringe) 3 ml IVFLUSH QSHIFT [facility] Last Admin: 04/04/25 09:25 Dose: 3 ml Documented By: RICCIAV Labs 04/03/25 06:12 04/04/25 06:51 Labs: Laboratory Results - last 24 hr 04/04/25 06:51 Hold Purple Top SEE NOTE Anion Gap 11 L Estim Creat Clear Calc 95.3 Estimated GFR > 60 Random Glucose 116 H Calcium 8.4 Total Creatine Kinase 806 H Microbiology Microbiology Results: Microbiology 04/02/25 16:11 Urine Culture - Final Urine clean catch - Clean Catch Midstream No growth. 04/02/25 12:47 Blood Culture - Preliminary Blood - Venous No growth after 24 hours. 04/02/25 11:33 Blood Culture - Preliminary Blood - Venous No growth after 24 hours. Assessment and Plan (1) Heart failure: Status: Acute Plan 79M PMH pafib, hfpef, htn, bph, recurrent uti presented with syncope syncope, FTT ?cardiogenic vs neurogenic noted bradycardia on tele, holding metoprolol follow up cardio, continue tele, check echo neuro eval transaminitis mostly mild rhabdo, though may be component of ETOH - patient denies, but etoh level noted to be [address] abd pafib holding metoprolol not on AC htn norvasc, hydralazine dvt prophylaxis - Lovenox full code reason for continued hospitalization:working up syncope Quality Stroke Does the patient have a stroke diagnosis?: No VTE Prior VTE?: No VTE Risk Level:: Medical - moderate - high VTE Device Contraindication: N/A - Device Ordered VTE Drug Contraindication: Treatment Not Indicated
[2025-04-04] MEDS: Ammonium Lactate 12 % Lotion 226 GM BOTTLE 1 APPL TOPICAL (12:23)
--- NOTE | 2025-04-04 12:24 | P.CNNE_ITS ---
History of Present Illness Data of Consult Service Date: 04/04/25 Primary Care Provider: None Physician HPI Reason for consult: Syncope This is a 79-year-old male with h/o AFib. with 3 unsuccessful cardioversions, heart failure, arthritis, hypertension, BPH, recurrent UTIs presented to the ED after a syncopal episode. 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 He apparently was on the floor for several hours. He recalls going to the kitchen to get some food then changed his mind. The next recal is seeing the CARD STRIPPER around him. Unclear how long he was on the floor. He reports that prior to falling he had been on IV antibiotics for 10 days for a urinary tract infection. He reports that about 6 days into the antibiotics he experienced a loss of appetite and became more weak. He does not remember the events of the fall. CT scan demonstrated age related atrophy and microvascular white matter changes , no acute abnormalities, CT cervical spine with degenerative changes no evidence of fracture, his chest x-ray with no active pulmonary disease and small bilateral pleural effusions. Lactic acid 1.4. His CK was elevated 1792, Total Bili 1.8 AST/ALT 118/55. Urinalysis reveals 3+ blood, small Leuk esterase 300+ protein No previous syncope or Sz PMFSH Past Medical History Medical History Persistent atrial fibrillation History of cardioversion AAA (abdominal aortic aneurysm) Diabetes HTN (hypertension) Urinary retention BPH (benign prostatic hyperplasia) Family History Family History Mother Heart disease HTN (hypertension) Diabetes Father HTN (hypertension) Diabetes Surgical History Surgical History History of prostate surgery Hx of aortic valve replacement Social History Social History Household Members: None Housing: House Do you presently have visiting nurse or other home services: No Alcohol intake: never Patient Tobacco Use Status: Never used Tobacco Smoked in Last 30 Days: No Use of substances other than those prescribed or required for medical reasons: No Currently Displaying Signs/Symptoms of Drug Intoxication Withdrawal: No Spiritism Healthcare Practices: n/a Advance Directives: Yes Advance Directives on File: Yes Advance Directives Date on File: 04/02/25 Do you have a plan to hurt others: No Plan Recently lost weight without trying: No Nutrition Risks: No Nutritional Risk Poor oral hygiene: No service: No Meds Allergies Allergy/AdvReac Type Severity Reaction Status Date / Time Sulfa (Sulfonamide Allergy Unknown Unknown Verified 04/02/25 11:13 Antibiotics) amlodipine AdvReac Intermediate Swelling Uncoded 04/02/25 11:13 Active Medications: Current Medications Acetaminophen (Acetaminophen 325 Mg Tablet) 650 mg PO Q6H PRN PRN Reason: Pain, Mild 1-3,fever,headache Last Admin: 04/02/25 16:41 Dose: 650 mg Amlodipine Besylate (Amlodipine Besylate 5 Mg Tablet) 5 mg PO DAILY [facility]; Protocol Last Admin: 04/04/25 09:19 Dose: 5 mg Calcium Carbonate (Calcium Carbonate 750 Mg Tab.Chew) 750 mg PO Q4H PRN PRN Reason: Heartburn Ceftriaxone Sodium (Ceftriaxone Sodium 1 Gm Vial) 1 gm IVPUSH Q12H [facility] Last Admin: 04/04/25 00:41 Dose: 1 gm Doxazosin Mesylate (Doxazosin Mesylate 2 Mg Tablet) 16 mg PO DAILY [facility]; Protocol Last Admin: 04/04/25 09:12 Dose: 16 mg Enoxaparin Sodium (Enoxaparin Sodium 40 Mg/0.4 Ml Syringe) 40 mg SUBCUT Q24H [facility] Hydralazine HCl (Hydralazine Hcl 25 Mg Tablet) 25 mg PO TID [facility]; Protocol Last Admin: 04/04/25 09:19 Dose: 25 mg Ibuprofen (Ibuprofen 400 Mg Tablet) 400 mg PO Q6H PRN PRN Reason: Pain, Moderate(Pain Scale 4-6) Last Admin: 04/04/25 01:08 Dose: 400 mg Lactic Acid (Ammonium Lactate 12 % Lotion 226 Gm Bottle) 1 appl TOPICAL BID [facility]; Protocol Last Admin: 04/03/25 20:53 Dose: 1 appl Magnesium Hydroxide (Milk Of Magnesia 30 Ml Oral.Susp) 30 ml PO DAILY PRN PRN Reason: Constipation Melatonin (Melatonin 3 Mg Tablet) 6 mg PO BEDTIME PRN PRN Reason: Insomnia Metoprolol Succinate (Metoprolol Succinate Er 50 Mg Tab.Er.24h) 50 mg PO DAILY [facility]; Protocol Last Admin: 04/03/25 09:23 Dose: 50 mg Multivitamins/Vitamin C (Multivitamin Tablet) 1 tab PO DAILY [facility] Ondansetron HCl (Ondansetron Hcl 4 Mg/2 Ml Vial) 4 mg IVPUSH Q8H PRN PRN Reason: Nausea and Vomiting Sodium Chloride (0.9 % Sodium Chloride Flush 3 Ml Syringe) 3 ml IVFLUSH QSHIFT [facility] Last Admin: 04/04/25 09:25 Dose: 3 ml Home Medications ?Medication ?Instructions ?Recorded ?Confirmed ?Last Taken ?Type potassium chloride 20 mEq 20 meq PO Q48H 08/25/23 04/02/25 03/29/25 History tablet,extended release ibuprofen 200 mg tablet (Advil) 400 mg PO Q8H PRN Pain (Scale 03/14/24 04/02/25 03/29/25 History Score 1-3) amlodipine 5 mg tablet 5 mg PO DAILY 04/02/25 04/02/25 03/29/25 History doxazosin 8 mg tablet 16 mg PO DAILY 04/02/25 04/02/25 03/29/25 History furosemide 40 mg tablet (Lasix) 40 mg PO Q48H 04/02/25 04/02/25 03/29/25 History Physical Exam 2 Vital Signs: Vital Signs: Last Vital Signs Temp 98.2 F 04/04/25 10:50 Pulse 78 04/04/25 10:50 Resp 20 04/04/25 10:50 BP 112/81 04/04/25 10:50 Pulse Ox 99 04/04/25 10:50 O2 Del Method Room Air 04/04/25 10:50 O2 Flow Rate 2 04/03/25 03:26 BMI result Body Mass Index 37.3 Neuro: Other: Non focal exam except for chronic left foot drop probably from Lumbar disc herniation 6 yrs ago. Results Labs 04/03/25 06:12 04/04/25 06:51 Labs: BMP 04/04/25 06:51 Sodium 141 Potassium 3.8 Chloride 108 Carbon Dioxide 26 BUN 19 H Creatinine 0.81 Calcium 8.4 Cardiac Enzymes 04/04/25 Range/Units 06:51 Total Creatine Kinase 806 H (38-174) U/L Microbiology Microbiology Results: Microbiology 04/02/25 16:11 Urine clean catch - Clean Catch Midstream Urine Culture - Final No growth. 05/19/25 12:47 Blood - Venous Blood Culture - Preliminary No growth after 24 hours. 04/02/25 11:33 Blood - Venous Blood Culture - Preliminary No growth after 24 hours. Assessment and Plan (1) Syncope: Status: Acute Probably from dehydration. He does have a cardiac history as well. No Hx of Sz. Ct brain appropriate for age. Recom: EEG, Cardiac monitoring, Echocardiogram. check for orthostatic hypotension. (2) Lumbar radiculopathy, chronic: Status: Acute left foot drop from left L4 radiculopathy x 6 yrs. Procedures Date of Service Date of Service: 04/04/25
--- NOTE | 2025-04-04 12:57 | PM.CNCAR ---
History of Present Illness History of Present Illness Date of Service: 04/04/25 Requesting physician: Charly Andino Chief complaint: Suncope fall Narrative: [age] year gentleman with background history of aortic valve replacement with bioprosthetic valve and persistent atrial fibrillation. He also had episode of diastolic heart failure in the past. He was seen in the office and was cardioverted and he said he felt better after cardioversion when he was in sinus rhythm. Eventually went back into atrial fibrillation and has been following with the electrophysiology with [facility]. He also has background of kidney disease. Recently he had urinary tract infection and was on antibiotics. He said he was feeling very weak and tired and was not eating and drinking. He has had he passed out while he was in that situation and was found by his second-degree in the room who called EMS. He is saying his appetite was quite poor and he was fairly anorexic when he developed the urinary tract infection. He is feeling better at this point. He has been noticed to be bradycardic on telemetry. He has persistent atrial fibrillation at nighttime his heart rates were in 30s. He is also taking daytime naps and is saying that he is quite sleepy during the day. [facility] Past Medical History Medical History Persistent atrial fibrillation History of cardioversion AAA (abdominal aortic aneurysm) Diabetes HTN (hypertension) Urinary retention BPH (benign prostatic hyperplasia) Family History Family History Mother Heart disease HTN (hypertension) Diabetes Father HTN (hypertension) Diabetes Surgical History Surgical History History of prostate surgery Hx of aortic valve replacement Social History Social History Household Members: None Housing: House Do you presently have visiting nurse or other home services: No Alcohol intake: never Patient Tobacco Use Status: Never used Tobacco Smoked in Last 30 Days: No Use of substances other than those prescribed or required for medical reasons: No Currently Displaying Signs/Symptoms of Drug Intoxication Withdrawal: No Sikhism Healthcare Practices: n/a Advance Directives: Yes Advance Directives on File: Yes Advance Directives Date on File: 04/02/25 Do you have a plan to hurt others: No Plan Recently lost weight without trying: No Nutrition Risks: No Nutritional Risk Poor oral hygiene: No service: No Meds Allergies Allergy/AdvReac Type Severity Reaction Status Date / Time Sulfa (Sulfonamide Allergy Unknown Unknown Verified 04/02/25 11:13 Antibiotics) amlodipine AdvReac Intermediate Swelling Uncoded 04/02/25 11:13 Active Medications: Current Medications Acetaminophen (Acetaminophen 325 Mg Tablet) 650 mg PO Q6H PRN PRN Reason: Pain, Mild 1-3,fever,headache Last Admin: 04/02/25 16:41 Dose: 650 mg Amlodipine Besylate (Amlodipine Besylate 5 Mg Tablet) 5 mg PO DAILY [facility]; Protocol Last Admin: 04/04/25 09:19 Dose: 5 mg Calcium Carbonate (Calcium Carbonate 750 Mg Tab.Chew) 750 mg PO Q4H PRN PRN Reason: Heartburn Ceftriaxone Sodium (Ceftriaxone Sodium 1 Gm Vial) 1 gm IVPUSH Q12H [facility] Last Admin: 04/04/25 12:23 Dose: 1 gm Doxazosin Mesylate (Doxazosin Mesylate 2 Mg Tablet) 16 mg PO DAILY [facility]; Protocol Last Admin: 04/04/25 09:12 Dose: 16 mg Enoxaparin Sodium (Enoxaparin Sodium 40 Mg/0.4 Ml Syringe) 40 mg SUBCUT Q24H [facility] Hydralazine HCl (Hydralazine Hcl 25 Mg Tablet) 25 mg PO TID [facility]; Protocol Last Admin: 04/04/25 09:19 Dose: 25 mg Ibuprofen (Ibuprofen 400 Mg Tablet) 400 mg PO Q6H PRN PRN Reason: Pain, Moderate(Pain Scale 4-6) Last Admin: 04/04/25 01:08 Dose: 400 mg Lactic Acid (Ammonium Lactate 12 % Lotion 226 Gm Bottle) 1 appl TOPICAL BID [facility]; Protocol Last Admin: 04/04/25 12:23 Dose: 1 appl Magnesium Hydroxide (Milk Of Magnesia 30 Ml Oral.Susp) 30 ml PO DAILY PRN PRN Reason: Constipation Melatonin (Melatonin 3 Mg Tablet) 6 mg PO BEDTIME PRN PRN Reason: Insomnia Metoprolol Succinate (Metoprolol Succinate Er 50 Mg Tab.Er.24h) 50 mg PO DAILY [facility]; Protocol Last Admin: 04/03/25 09:23 Dose: 50 mg Multivitamins/Vitamin C (Multivitamin Tablet) 1 tab PO DAILY [facility] Ondansetron HCl (Ondansetron Hcl 4 Mg/2 Ml Vial) 4 mg IVPUSH Q8H PRN PRN Reason: Nausea and Vomiting Sodium Chloride (0.9 % Sodium Chloride Flush 3 Ml Syringe) 3 ml IVFLUSH QSHIFT [facility] Last Admin: 04/04/25 09:25 Dose: 3 ml Home Medications ?Medication ?Instructions ?Recorded ?Confirmed ?Last Taken ?Type potassium chloride 20 mEq 20 meq PO Q48H 08/25/23 04/02/25 03/29/25 History tablet,extended release ibuprofen 200 mg tablet (Advil) 400 mg PO Q8H PRN Pain (Scale 03/14/24 04/02/25 03/29/25 History Score 1-3) amlodipine 5 mg tablet 5 mg PO DAILY 04/02/25 04/02/25 03/29/25 History doxazosin 8 mg tablet 16 mg PO DAILY 04/02/25 04/02/25 03/29/25 History furosemide 40 mg tablet (Lasix) 40 mg PO Q48H 04/02/25 04/02/25 03/29/25 History Physical Exam Vital Signs: Vital Signs: Last Vital Signs Temp 98.2 F 04/04/25 10:50 Pulse 78 04/04/25 10:50 Resp 20 04/04/25 10:50 BP 112/81 04/04/25 10:50 Pulse Ox 99 04/04/25 10:50 O2 Del Method Room Air 04/04/25 10:50 O2 Flow Rate 2 04/03/25 03:26 BMI result Body Mass Index 37.3 GENERAL APPEARANCE: in no acute distress, pleasant. NECK: no carotid bruit, no jugular venous distention. SKIN: no suspicious lesions, warm and dry. HEART: no murmurs, irregular rate and rhythm. LUNGS: clear to auscultation bilaterally. ABDOMEN: soft, nontender. EXTREMITIES: 2+ edema to knees. PERIPHERAL PULSES: equal. NEUROLOGIC: No gross deficits, AAO X 3 Objective Labs and Meds 04/03/25 06:12 04/04/25 06:51 Lab results: Laboratory Results - last 24 hr 04/04/25 06:51 Hold Purple Top SEE NOTE Sodium 141 Potassium 3.8 Chloride 108 Carbon Dioxide 26 Anion Gap 11 L BUN 19 H Creatinine 0.81 Estim Creat Clear Calc 95.3 Estimated GFR > 60 Random Glucose 116 H Calcium 8.4 Total Creatine Kinase 806 H Assessment and Plan (1) Persistent atrial fibrillation: Status: Acute (2) Bradycardia: Status: Acute Plan 79 year gentleman with persistent atrial fibrillation currently rate controlled. He is following with electrophysiology. He had atrial appendage ligation during surgery and is currently not on anticoagulation. He has peripheral edema but does not appear to be in heart failure. I think edema is related to amlodipine and we should consider stopping the amlodipine. Hydralazine can be titrated up to control blood pressure in case blood pressure starts rising. Continue rest of the medications as before currently. Bradycardia in his sleep and during the day mostly when he is sleeping. When he is awake he has heart rates in 60 to 70s and is clinically stable. He has known dizziness. Syncope is likely related to dehydration and poor p.o. intake. Thank you for allowing me to participate in the care of your patient. Please feel free to contact me if you have any questions. Procedures Date of Service Date of Service: 04/04/25
--- NOTE | 2025-04-04 13:00 | CA_ITS ---
Transthoracic Echocardiogram Patient (Last, First, Middle): Yoshi Angeles, Gender: Male Date of : 1945 Age: 79 Procedure Date: 04/04/2025 Procedure Type: Transthoracic Echocardiogram Location: [facility] Height: 175.26 cm Weight: 114.31 kg BSA: 2.28 m2 Heart Rate: bpm BP: 112 / 81 mmHg E Commerce Director: TO Referring MD: Charly Andino MD Symptoms: sycnope, effusions Study Quality: Fair/Contrast Conclusions: - Normal left ventricular size and systolic function. There is mildly increased left ventricular wall thickness. The visually estimated ejection fraction is between 60-65%. - Mildly increased right ventricular cavity size. There is mildly decreased right ventricular systolic function. - The left atrium is severely dilated. The right atrium is severely dilated. - A bioprosthetic aortic valve is present. The prosthetic aortic valve appears to be functioning normally. - There is severe mitral annular calcification. - Significantly elevated right atrial pressure. Mild pulmonary hypertension is present. - There is moderate dilatation of the ascending aorta measuring 4.80 cm. Findings Procedure Information Contrast agent, definity, is being given per protocol without apparent complications. Left Ventricle Normal left ventricular size and systolic function. There is mildly increased left ventricular wall thickness. The visually estimated ejection fraction is between 60-65%. There is no evidence of regional wall motion abnormalities. Diastolic function is indeterminate on the basis of available data. Right Ventricle Mildly increased right ventricular cavity size. There is mildly decreased right ventricular systolic function. Atria The left atrium is severely dilated. The right atrium is severely dilated. Aortic Valve A bioprosthetic aortic valve is present. The prosthetic aortic valve appears to be functioning normally. There is no aortic valve stenosis. There is no aortic valve regurgitation. Mitral Valve There is severe mitral annular calcification. There is no mitral valve regurgitation. There is no mitral valve stenosis. Pulmonic Valve The pulmonic valve is normal. There is no pulmonic valve regurgitation. Tricuspid Valve Normal tricuspid valve structure. There is mild tricuspid valve regurgitation. The right ventricular systolic pressure is 38 mmHg. Significantly elevated right atrial pressure. Mild pulmonary hypertension is present. Great Vessels There is moderate dilatation of the ascending aorta measuring 4.80 cm. The visualized portions of the pulmonary artery and branches are normal. Venous The inferior vena cava is dilated and does not collapse with inspiration. Pericardium/Pleural There is no evidence of pericardial effusion. Prior Study Comparison No significant change compared to prior study dated: 04/06/2023. Measurements 2D Linear Measurements IVSd: 1.26 0.6-0.9/0.6-1.0 cm LVIDd: 4.36 3.9-5.3/4.2-5.9 cm LVIDd Index: 1.91 2.4-3.2/2.2-3.1 cm/m2 LVIDs: 2.86 2.0-3.6 cm LVPWd: 1.10 0.7-1.1 cm LA Diam: 3.90 2.7-3.8/3.0-4.0 cm LAIDs Index: 1.71 1.5-2.3 cm/m2 LV Mass: 229.41 67-162/88-224 g LV Mass Index: 100.62 43-95/49-115 g/m2 LVOT Diam: 2.20 3.0+(-)1.3 cm 2D Systolic Function EF 4C: 53.10 >55% EF 2C: 46.10 >55% EF BiP: 51.50 >55% Mitral Valve MV VTI: 0.38 MV Pk Stone: 1.41 MV Mn Stone: 0.71 MV Pk Grad: 8.00 MV Mn Grad: 3.00 E'Lateral: 9.21 E'Medial: 5.80 MVA Continuity: 2.32 Aortic Valve AoV Pk Stone: 2.13 AoV Mn Stone: 1.46 AoV VTI: 0.46 AoV Pk Grad: 18.00 Aov Mn Grad: 10.00 JACQUELINE Cont.VTI: 1.93 LVOT LVOT Pk Stone: 1.03 LVOT Mn Stone: 0.76 LVOT VTI: 0.23 LVOT Pk Grad: 4.00 LVOT Mn Grad: 3.00 LVOT Diam: 2.20 LVOT Area: 3.80 Diastolic Function E'Medial: 5.80 E' Laterial: 9.21 Right Ventricle TAPSE (mm): 11.80 TVS' Stone: 8.27 Tricuspid Valve TR Pk Stone: 2.41 TR Pk Grad: 23.00 RA Press: 15.00 RVSP: 38.00 Great Vessels Aorta Sinus of Valsalva: 3.92 2.0-3.5 cm Ao Asc: 4.80 2.1-3.4 cm Updated in Other Vendor System with Status of Final Isaias Pitt MD electronically signed on 04/05/2025 2:15:03 PM with status of Final
[2025-04-04] MEDS: Multivitamin TABLET 1 TAB PO (13:34)
--- NOTE | 2025-04-04 17:10 | HO.WOUND ---
Addendum entered by Karina Jimenez RN 04/05/25 10:46: 04/05/25 @ 1046 Follow up for topical treatment - patient reported he was able to tolerate dressing and the slight discomfort subsided within an hour from the time of dressing was applied - he reports this is tolerable and is agreeable to continuing with topical medihoney application. Tube left at bedside for continued use. Original Note: Wound Consult: Initial 79yr old? admitted to [facility] on 04/02/25 - See progress notes and H&P for detailed history.? Wound consult placed for Left Lower Leg wounds.? Patient agreeable to assessment and photo documentation.? Patient reports he has had the wounds for approximately 4 months - recommend outpt wound clinic followup - patient unsure if he will pursue outpt wound clinic follow up. Left Lower Leg right Lower Leg Bilateral Lower Legs Etiology: Venous wounds ??Present on Admission Measurements: various sizes measuring less than 2cm Wound Bed: red pink moist tissue with scant slough to come wound beds Drainage / Odor: serosang drainge noted on dressing Edges: ? irregular and macerated Liliana wound: ?red pink swelling noted - maceration noted in some areas - evidence of greater swelling noted No Induration, Fluctuance or Warmth noted Pain: pain noted by patient Goals of Treatment: ? Medical grade honey application lower leg elevation and compression with bisi wraps and follow up out pt with wound clinic Recommendations: 1. Turn and Reposition every 2 hours and as needed for patient comfort.? Use pillows or wedges to support off loading positions. 2. Off Load all bony prominences with use of pillows and heel boots if needed.? Apply Preventative foams where needed. ? 3. Monitor for incontinence and moisture control, use barrier creams when needed for prevention and treatment. 4. Provide adequate and supplemental nutrition.? 5. Order low air loss mattress. 6. When applicable maintain blood glucose levels per Providers order. Bilateral Lower Legs - Elevate lower legs on pillows throughout the day - when in recliner chair elevate lower legs. Cleanse with PH balance spray or wipes, pat dry. ?Apply layer of Medihoney to wound bed. ?Cover with ABD pad dressing, followed by gauze wrap and bisi wrap. Change every other day and PRN.? Medihoney available from wound nurse ? tube left at bedside for use. Recommend patient to consider Edema Wear outpt as not available inpatient.? These can be obtained from the following website. [email or web address] Edema Wear Compression Stockings ? Edema Wear compression garments should be applied first thing in the morning and may be removed at night when legs are elevated in bed.? Hand wash and hang dry.? Stockings should be worn from the base of the toes to just below the knee.? Fold over at end to prevent rolling.? They are disposable after about 2 weeks or regular use. Recommend follow up out patient Wound Clinic at [address] [place] [id number] and to call for an appointment at time of discharge. [phone].? Re-consult wound care Nurse for wound deterioration or wound changes.
[2025-04-05] VITALS (7 sets, daily range): BP systolic 140–166; BP diastolic 72–96; PULSE 64–80; RESP 16–20; TEMP 36.3–36.8; O2SAT 95–98
[2025-04-05] MEDS: cefTRIAXone sodium 1 GM VIAL IVPUSH ×2 (00:31→14:37)
[2025-04-05 07:11] LABS: Hemoglobin 11.6 g/dl (14.0-18.0); Mean Corpuscular HGB Conc 33.1 g/dl (31.0-36.0); Mean Corpuscular Hemoglobin 27.5 pg (27.0-33.0); Mean Corpuscular Volume 82.9 fL (80.0-98.0); Mean Platelet Volume 9.8 fL (9.4-12.4); Platelet Count 173 X10*3/uL (160-400); Red Blood Count 4.22 X10*6/uL (4.60-5.80); White Blood Count 5.7 X10*3/uL (4.8-10.8)
[2025-04-05 07:18] LABS: INTERNATIONAL NORM RATIO 1.2 (0.9-1.1); Prothrombin Time 13.7 SEC (10.9-12.4)
[2025-04-05 07:34] LABS: Alanine Aminotransferase 65 U/L (0-40); Alkaline Phosphatase 88 U/L (39-117); Anion Gap 12 (12-20); Aspartate Amino Transferase 63 U/L (5-37); Bilirubin Direct 0.3 mg/dL (0.0-0.5); Bilirubin Total 0.6 mg/dL (0.0-1.0); Blood Urea Nitrogen 14 mg/dL (9-16); Calcium 8.4 mg/dL (8.4-10.2); Carbon Dioxide 26 mmol/L (22-29); Chloride 109 mmol/L (96-108); Creatinine Clr Calc Pharmacy 91.9; Estimated Glomerular Filt Rate > 60; Glucose Random 117 mg/dL (60-115); Magnesium 1.7 mg/dL (1.6-2.6); Potassium 3.8 mmol/L (3.3-5.1); Sodium 143 mmol/L (135-145); Total Protein 5.5 g/dL (6.5-8.0)
[2025-04-05 07:36] LABS: B Type Natriuretic Peptide 346 pg/mL (<100)
[2025-04-05 07:52] LABS: Prostate Specific Antigen Scr 22.15 ng/mL (<0.05-4.0)
--- NOTE | 2025-04-05 09:11 | HO.PM.IMPN ---
Subjective Subjective Date of Service: 04/05/25 Interval History: feeling stronger Physical Exam Vital Signs: Vital Signs: Last Vital Signs Temp 98.2 F 04/05/25 06:54 Pulse 72 04/05/25 06:54 Resp 20 04/05/25 06:54 BP 154/80 H 04/05/25 06:54 Pulse Ox 95 04/05/25 06:54 O2 Del Method Room Air 04/05/25 06:54 O2 Flow Rate 2 04/03/25 03:26 BMI result Body Mass Index 37.3 GENERAL APPEARANCE: in no acute distress, pleasant. NECK: no carotid bruit, no jugular venous distention. SKIN: no suspicious lesions, warm and dry. HEART: no murmurs, irregular rate and rhythm. LUNGS: clear to auscultation bilaterally. ABDOMEN: soft, nontender. EXTREMITIES: 2+ edema to knees. PERIPHERAL PULSES: equal. NEUROLOGIC: No gross deficits, AAO X 3 Objective Data Active Medications Acetaminophen (Acetaminophen 325 Mg Tablet) 650 mg PO Q6H PRN PRN Reason: Pain, Mild 1-3,fever,headache Last Admin: 04/02/25 16:41 Dose: 650 mg Documented By: BURAK Amlodipine Besylate (Amlodipine Besylate 5 Mg Tablet) 5 mg PO DAILY [facility]; Protocol Last Admin: 04/04/25 09:19 Dose: 5 mg Documented By: MAGGIE Calcium Carbonate (Calcium Carbonate 750 Mg Tab.Chew) 750 mg PO Q4H PRN PRN Reason: Heartburn Ceftriaxone Sodium (Ceftriaxone Sodium 1 Gm Vial) 1 gm IVPUSH Q12H [facility] Last Admin: 04/05/25 00:31 Dose: 1 gm Documented By: AMRIT Doxazosin Mesylate (Doxazosin Mesylate 2 Mg Tablet) 16 mg PO DAILY [facility]; Protocol Last Admin: 04/04/25 09:12 Dose: 16 mg Documented By: MAGGIE Enoxaparin Sodium (Enoxaparin Sodium 40 Mg/0.4 Ml Syringe) 40 mg SUBCUT Q24H [facility] Hydralazine HCl (Hydralazine Hcl 25 Mg Tablet) 25 mg PO TID [facility]; Protocol Last Admin: 04/04/25 20:44 Dose: 25 mg Documented By: AMRIT Ibuprofen (Ibuprofen 400 Mg Tablet) 400 mg PO Q6H PRN PRN Reason: Pain, Moderate(Pain Scale 4-6) Last Admin: 04/04/25 20:44 Dose: 400 mg Documented By: AMRIT Lactic Acid (Ammonium Lactate 12 % Lotion 226 Gm Bottle) 1 appl TOPICAL DAILY [facility]; Protocol PRN Reason: Dry Skin Magnesium Hydroxide (Milk Of Magnesia 30 Ml Oral.Susp) 30 ml PO DAILY PRN PRN Reason: Constipation Melatonin (Melatonin 3 Mg Tablet) 6 mg PO BEDTIME PRN PRN Reason: Insomnia Metoprolol Succinate (Metoprolol Succinate Er 25 Mg Tab.Er.24h) 25 mg PO DAILY [facility]; Protocol Multivitamins/Vitamin C (Multivitamin Tablet) 1 tab PO DAILY [facility] Last Admin: 04/04/25 13:34 Dose: 1 tab Documented By: MAGGIE Ondansetron HCl (Ondansetron Hcl 4 Mg/2 Ml Vial) 4 mg IVPUSH Q8H PRN PRN Reason: Nausea and Vomiting Sodium Chloride (0.9 % Sodium Chloride Flush 3 Ml Syringe) 3 ml IVFLUSH QSHIFT [facility] Last Admin: 04/04/25 20:44 Dose: 3 ml Documented By: AMRIT Labs 04/05/25 06:32 04/05/25 06:32 Labs: Laboratory Results - last 24 hr 04/05/25 06:32 MCV 82.9 MCH 27.5 MCHC 33.1 RDW 15.0 Plt Count 173 MPV 9.8 Absolute Nucleated RBC 0.000 Nucleated RBC % (auto) 0.0 PT 13.7 H INR 1.2 H Anion Gap 12 Estim Creat Clear Calc 91.9 Estimated GFR > 60 Random Glucose 117 H Calcium 8.4 Magnesium 1.7 Total Bilirubin 0.6 Direct Bilirubin 0.3 AST 63 H ALT 65 H Alkaline Phosphatase 88 B-Natriuretic Peptide 346 H Total Protein 5.5 L Albumin 3.0 L PSA Screen 22.15 H Microbiology Microbiology Results: Microbiology 04/02/25 12:47 Blood Culture - Preliminary Blood - Venous No growth after 48 hours. 04/02/25 11:33 Blood Culture - Preliminary Blood - Venous No growth after 48 hours. 04/02/25 16:11 Urine Culture - Final Urine clean catch - Clean Catch Midstream No growth. Assessment and Plan (1) Heart failure: Status: Acute Plan 79M PMH pafib, hfpef, htn, bph, recurrent uti presented with syncope syncope, FTT ?cardiogenic vs neurogenic vs dehydration from recent diarrheal illness noted bradycardia on tele, improved, will restart toprol at 25mg daily check echo neuro appreciated - likely dehydation, check eeg transaminitis mostly mild rhabdo, though may be component of ETOH - patient denies, but etoh level noted to be 10 improved large bladder stone with recurrent UTIs urology eval pafib holding metoprolol not on AC - due to left atrial appendagectomy during bioavr surgery htn hydralazine stop amlodipine due to edema dvt prophylaxis - Lovenox full code reason for continued hospitalization:working up syncope Quality Stroke Does the patient have a stroke diagnosis?: No VTE Prior VTE?: No VTE Risk Level:: Medical - moderate - high VTE Device Contraindication: N/A - Device Ordered VTE Drug Contraindication: Treatment Not Indicated
[2025-04-05] MEDS: hydrALAZINE HCl 25 MG TABLET PO ×3 (09:20→19:32)
[2025-04-05] MEDS: Multivitamin TABLET 1 TAB PO (09:20)
[2025-04-05] MEDS: Doxazosin Mesylate 2 MG TABLET 16 MG PO (09:20)
[2025-04-05] MEDS: Enoxaparin Sodium 40 MG/0.4 ML SYRINGE SUBCUT (09:21)
[2025-04-05] MEDS: 0.9 % Sodium Chloride Flush 3 ML SYRINGE IVFLUSH ×3 (09:21→19:33)
--- NOTE | 2025-04-05 10:21 | MHC.CM.PN ---
Addendum entered by Kristy Lindsay 04/05/25 12:38: CM spoke with Patient and presented him with Rehab facility options; Patient is agreeable to [facility] attempting auth with his insurance. CM will continue to follow. Original Note: CM met with Patient at bedside to discuss PT's recommendation for Acute Rehab. Patient expressed that he prefers to go home but CM explained that without a PCP, Patient will not qualify for home services. Patient is agreeable that CM can attempt to find a rehab facility and attempt insurance auth, while he considers his options. CM will follow.
[2025-04-05] MEDS: Ibuprofen 400 MG TABLET PO (14:40)
--- NOTE | 2025-04-05 17:58 | PM.UROCN ---
History of Present Illness Consult details Consult date: 04/05/25 Narrative: CC: Bladder stones 79-year-old male well known to Urology Followed for recurrent UTI and urinary retention with BPH Underwent [employer] laser prostate 2020 Previously with current Staphylococcus UTI resistant to fluoroquinolones and Bactrim Admitted for generalized weakness. Had been on IV antibiotics for 10 days. Had experienced loss of appetite and became weak. Has improved with fluids and IV antibiotics CT scan showed significant bladder stone burden Recommend laser removal of bladder stones during current admission as these are possible source for recurrent infection. Yoshi is amenable Review of Systems Constitutional: Constitutional: Reports as per HPI and Reports no additional constitutional complaints Cardiovascular: Cardiovascular: Reports as per HPI and Reports no additional cardiovascular complaints Respiratory: Respiratory: Reports as per HPI and Reports no additional respiratory complaints Gastrointestinal: Gastrointestinal: Reports as per HPI and Reports no additional gastrointestinal complaints Genitourinary: Genitourinary: Reports as per HPI Musculoskeletal: Musculoskeletal: Reports no additional musculoskeletal complaints and Reports as per HPI Neurologic: Reports system reviewed and no additional complaints, except as documented and Reports as per HPI PMF Past Medical History Medical History Persistent atrial fibrillation History of cardioversion AAA (abdominal aortic aneurysm) Diabetes HTN (hypertension) Urinary retention BPH (benign prostatic hyperplasia) Family History Family History Mother Heart disease HTN (hypertension) Diabetes Father HTN (hypertension) Diabetes Surgical History Surgical History History of prostate surgery Hx of aortic valve replacement Social History Social History Household Members: None Housing: House Do you presently have visiting nurse or other home services: No Alcohol intake: never Patient Tobacco Use Status: Never used Tobacco Smoked in Last 30 Days: No Use of substances other than those prescribed or required for medical reasons: No Currently Displaying Signs/Symptoms of Drug Intoxication Withdrawal: No Scientologist Healthcare Practices: n/a Advance Directives: Yes Advance Directives on File: Yes Advance Directives Date on File: 04/02/25 Do you have a plan to hurt others: No Plan Recently lost weight without trying: No Nutrition Risks: No Nutritional Risk Poor oral hygiene: No service: No Meds Allergies Allergy/AdvReac Type Severity Reaction Status Date / Time Sulfa (Sulfonamide Allergy Unknown Unknown Verified 04/02/25 11:13 Antibiotics) amlodipine AdvReac Intermediate Swelling Uncoded 04/02/25 11:13 Active Medications: Current Medications Acetaminophen (Acetaminophen 325 Mg Tablet) 650 mg PO Q6H PRN PRN Reason: Pain, Mild 1-3,fever,headache Last Admin: 04/02/25 16:41 Dose: 650 mg Calcium Carbonate (Calcium Carbonate 750 Mg Tab.Chew) 750 mg PO Q4H PRN PRN Reason: Heartburn Ceftriaxone Sodium (Ceftriaxone Sodium 1 Gm Vial) 1 gm IVPUSH Q12H [facility] Last Admin: 04/05/25 14:37 Dose: 1 gm Doxazosin Mesylate (Doxazosin Mesylate 2 Mg Tablet) 16 mg PO DAILY [facility]; Protocol Last Admin: 04/05/25 09:20 Dose: 16 mg Enoxaparin Sodium (Enoxaparin Sodium 40 Mg/0.4 Ml Syringe) 40 mg SUBCUT Q24H [facility] Last Admin: 04/05/25 09:21 Dose: 40 mg Hydralazine HCl (Hydralazine Hcl 25 Mg Tablet) 25 mg PO TID [facility]; Protocol Last Admin: 04/05/25 16:52 Dose: 25 mg Ibuprofen (Ibuprofen 400 Mg Tablet) 400 mg PO Q6H PRN PRN Reason: Pain, Moderate(Pain Scale 4-6) Last Admin: 04/05/25 14:40 Dose: 400 mg Lactic Acid (Ammonium Lactate 12 % Lotion 226 Gm Bottle) 1 appl TOPICAL DAILY PRN; Protocol PRN Reason: Dry Skin Magnesium Hydroxide (Milk Of Magnesia 30 Ml Oral.Susp) 30 ml PO DAILY PRN PRN Reason: Constipation Melatonin (Melatonin 3 Mg Tablet) 6 mg PO BEDTIME PRN PRN Reason: Insomnia Metoprolol Succinate (Metoprolol Succinate Er 25 Mg Tab.Er.24h) 25 mg PO DAILY [facility]; Protocol Multivitamins/Vitamin C (Multivitamin Tablet) 1 tab PO DAILY [facility] Last Admin: 04/05/25 09:20 Dose: 1 tab Ondansetron HCl (Ondansetron Hcl 4 Mg/2 Ml Vial) 4 mg IVPUSH Q8H PRN PRN Reason: Nausea and Vomiting Sodium Chloride (0.9 % Sodium Chloride Flush 3 Ml Syringe) 3 ml IVFLUSH QSHIFT [facility] Last Admin: 04/05/25 16:52 Dose: 3 ml Home Medications ?Medication ?Instructions ?Recorded ?Confirmed ?Last Taken ?Type potassium chloride 20 mEq 20 meq PO Q48H 08/25/23 04/02/25 03/29/25 History tablet,extended release ibuprofen 200 mg tablet (Advil) 400 mg PO Q8H PRN Pain (Scale 03/14/24 04/02/25 03/29/25 History Score 1-3) amlodipine 5 mg tablet 5 mg PO DAILY 04/02/25 04/02/25 03/29/25 History doxazosin 8 mg tablet 16 mg PO DAILY 04/02/25 04/02/25 03/29/25 History furosemide 40 mg tablet (Lasix) 40 mg PO Q48H 04/02/25 04/02/25 03/29/25 History Physical Exam Vital Signs: Vital Signs: Last Vital Signs Temp 98.2 F 04/05/25 16:00 Pulse 72 04/05/25 16:00 Resp 20 04/05/25 16:00 BP 158/96 H 04/05/25 16:00 Pulse Ox 96 04/05/25 16:00 O2 Del Method Room Air 04/05/25 16:00 O2 Flow Rate 2 04/03/25 03:26 BMI result Body Mass Index 37.3 Const: General: cooperative, healthy appearing, comfortable and no acute distress Orientation/consciousness: patient oriented x3 HEENT: Face and sinus: Yes normal facial exam Mouth: moist mucous membranes Neck: Neck: Yes normal visual inspection, Yes full ROM and Yes trachea midline Chest: Chest palpation & inspection: normal inspection of the chest Resp: Effort & Inspection: normal respiratory effort, able to speak in complete sentences and no respiratory distress GI: Inspection: Yes normal to inspection Back/Spine/Pelvis: Cervical Spine: normal cervical lordosis Thoracic/Lumbar Spine: thoracic and lumbar spine normal to inspection Skin: General skin exam: no rashes or lesions noted Neuro: General: patient oriented x3, tone normal and moves all extremities Extrem: General: Yes normal to inspection and Yes capillary refill normal Results Labs 04/05/25 06:32 04/05/25 06:32 Labs: Abnormal lab results 04/05/25 Range/Units 06:32 RBC 4.22 L (4.60-5.80) X10*6/uL Hgb 11.6 L (14.0-18.0) g/dl Hct 35.0 L (42.0-52.0) % PT 13.7 H (10.9-12.4) SEC INR 1.2 H (0.9-1.1) Chloride 109 H (96-108) mmol/L Random Glucose 117 H (60-115) mg/dL AST 63 H (5-37) U/L ALT 65 H (0-40) U/L B-Natriuretic Peptide 346 H (<100) pg/mL Total Protein 5.5 L (6.5-8.0) g/dL Albumin 3.0 L (3.5-5.0) g/dL PSA Screen 22.15 H (<0.05-4.0) ng/mL Short CBC 04/05/25 Range/Units 06:32 WBC 5.7 (4.8-10.8) X10*3/uL Hgb 11.6 L (14.0-18.0) g/dl Hct 35.0 L (42.0-52.0) % Plt Count 173 (160-400) X10*3/uL BMP 04/05/25 06:32 Sodium 143 Potassium 3.8 Chloride 109 H Carbon Dioxide 26 BUN 14 Creatinine 0.84 Calcium 8.4 Liver Function 04/05/25 Range/Units 06:32 Total Bilirubin 0.6 (0.0-1.0) mg/dL Direct Bilirubin 0.3 (0.0-0.5) mg/dL AST 63 H (5-37) U/L ALT 65 H (0-40) U/L Alkaline Phosphatase 88 (39-117) U/L Albumin 3.0 L (3.5-5.0) g/dL Urine 04/02/25 Range/Units 15:38 Urine Color DK YELLOW Urine Appearance Cloudy Urine pH 6.0 (5.0-9.0) Ur Specific Hydro >= 1.030 H (1.005-1.025) Urine Protein 300 (3+) H (Neg-Trace) mg/dL Urine Glucose (UA) Negative (Negative) mg/dL All other labs normal. Assessment and Plan (1) Bladder stones: Status: Acute Plan Risks, benefits and alternatives to therapy were discussed. These include but are not limited to infection, bleeding, damage to local organs and tissues, need for further interventions. Anesthetic risks regarding cardiac arrhythmia, blood clots, and potential mortality were discussed. The patient understands the typical recovery time and the outpatient nature of the procedure. After consideration of these risks the patient gives full informed consent and they wish to move ahead with the procedure. Cystoscopy with laser bladder stones Procedures Date of Service Date of Service: 04/05/25
[2025-04-06] VITALS (13 sets, daily range): BP systolic 141–182; BP diastolic 82–113; PULSE 70–88; RESP 15–18; TEMP 36.2–36.8; O2SAT 96–98
[2025-04-06] MEDS: cefTRIAXone sodium 1 GM VIAL IVPUSH ×2 (00:40→13:49)
[2025-04-06 07:08] LABS: D Dimer High Sensitivity 738 NG/ML
[2025-04-06] MEDS: 0.9 % Sodium Chloride Flush 3 ML SYRINGE IVFLUSH ×3 (09:21→20:39)
[2025-04-06] MEDS: hydrALAZINE HCl 25 MG TABLET PO (09:21)
[2025-04-06] MEDS: Enoxaparin Sodium 40 MG/0.4 ML SYRINGE SUBCUT (09:21)
[2025-04-06] MEDS: Doxazosin Mesylate 2 MG TABLET 16 MG PO (09:22)
[2025-04-06] MEDS: Multivitamin TABLET 1 TAB PO (09:22)
--- NOTE | 2025-04-06 09:28 | P.PNIM_ITS ---
Subjective Subjective Date of Service: 04/06/25 Interval History: feeling stronger Physical Exam 2 Vital Signs: Vital Signs: Last Vital Signs Temp 97.6 F 04/06/25 07:34 Pulse 76 04/06/25 07:34 Resp 16 04/06/25 07:34 BP 160/100 H 04/06/25 09:21 Pulse Ox 96 04/06/25 07:34 O2 Del Method Room Air 04/06/25 07:34 O2 Flow Rate 2 04/03/25 03:26 BMI result Body Mass Index 37.3 Const: General: cooperative, healthy appearing, comfortable and no acute distress Orientation/consciousness: patient oriented x3 HEENT: Face and sinus: Yes normal facial exam Mouth: moist mucous membranes Neck: Neck: Yes normal visual inspection, Yes full ROM and Yes trachea midline Chest: Chest palpation & inspection: normal inspection of the chest Resp: Effort & Inspection: normal respiratory effort, able to speak in complete sentences and no respiratory distress GI: Inspection: Yes normal to inspection Back/Spine/Pelvis: Cervical Spine: normal cervical lordosis Thoracic/Lumbar Spine: thoracic and lumbar spine normal to inspection Skin: General skin exam: no rashes or lesions noted Neuro: General: patient oriented x3, tone normal and moves all extremities Extrem: General: Yes normal to inspection and Yes capillary refill normal Objective Data Active Medications Acetaminophen (Acetaminophen 325 Mg Tablet) 650 mg PO Q6H PRN PRN Reason: Pain, Mild 1-3,fever,headache Last Admin: 04/02/25 16:41 Dose: 650 mg Documented By: BURAK Calcium Carbonate (Calcium Carbonate 750 Mg Tab.Chew) 750 mg PO Q4H PRN PRN Reason: Heartburn Ceftriaxone Sodium (Ceftriaxone Sodium 1 Gm Vial) 1 gm IVPUSH Q12H [facility] Last Admin: 04/06/25 00:40 Dose: 1 gm Documented By: NATHANIEL Doxazosin Mesylate (Doxazosin Mesylate 2 Mg Tablet) 16 mg PO DAILY [facility]; Protocol Last Admin: 04/06/25 09:22 Dose: 16 mg Documented By: CHITRA Enoxaparin Sodium (Enoxaparin Sodium 40 Mg/0.4 Ml Syringe) 40 mg SUBCUT Q24H [facility] Last Admin: 04/06/25 09:21 Dose: 40 mg Documented By: CHITRA Hydralazine HCl (Hydralazine Hcl 25 Mg Tablet) 25 mg PO TID [facility]; Protocol Last Admin: 04/06/25 09:21 Dose: 25 mg Documented By: CHITRA Ibuprofen (Ibuprofen 400 Mg Tablet) 400 mg PO Q6H PRN PRN Reason: Pain, Moderate(Pain Scale 4-6) Last Admin: 04/05/25 14:40 Dose: 400 mg Documented By: CHITRA Lactic Acid (Ammonium Lactate 12 % Lotion 226 Gm Bottle) 1 appl TOPICAL DAILY PRN; Protocol PRN Reason: Dry Skin Magnesium Hydroxide (Milk Of Magnesia 30 Ml Oral.Susp) 30 ml PO DAILY PRN PRN Reason: Constipation Melatonin (Melatonin 3 Mg Tablet) 6 mg PO BEDTIME PRN PRN Reason: Insomnia Metoprolol Succinate (Metoprolol Succinate Er 25 Mg Tab.Er.24h) 25 mg PO DAILY [facility]; Protocol Multivitamins/Vitamin C (Multivitamin Tablet) 1 tab PO DAILY [facility] Last Admin: 04/06/25 09:22 Dose: 1 tab Documented By: CHITRA Ondansetron HCl (Ondansetron Hcl 4 Mg/2 Ml Vial) 4 mg IVPUSH Q8H PRN PRN Reason: Nausea and Vomiting Sodium Chloride (0.9 % Sodium Chloride Flush 3 Ml Syringe) 3 ml IVFLUSH QSHIFT [facility] Last Admin: 04/06/25 09:21 Dose: 3 ml Documented By: CHITRA Labs 04/05/25 06:32 04/05/25 06:32 Labs: Laboratory Results - last 24 hr 04/06/25 06:12 Hold Purple Top SEE NOTE D-Dimer High Sensitivty 738 Assessment and Plan (1) Heart failure: Status: Acute Plan 79M PMH pafib, hfpef, htn, bph, recurrent uti presented with syncope syncope, FTT ?cardiogenic vs neurogenic vs dehydration from recent diarrheal illness noted bradycardia on tele, improved, restarted toprol at 25mg daily neuro appreciated - likely dehydation, check eeg transaminitis mostly mild rhabdo, though may be component of ETOH - patient denies, but etoh level noted to be 10 improved large bladder stone with recurrent UTIs urology appreciated - plan for cysto and laser today pafib toprol not on AC - due to left atrial appendagectomy during bioavr surgery htn hydralazine stopped amlodipine due to edema dvt prophylaxis - Lovenox full code reason for continued hospitalization:cysto today Quality Stroke Does the patient have a stroke diagnosis?: No VTE Prior VTE?: No VTE Risk Level:: Medical - moderate - high VTE Device Contraindication: N/A - Device Ordered VTE Drug Contraindication: Treatment Not Indicated
--- NOTE | 2025-04-06 10:25 | MHC.CM.PN ---
[facility] has obtained [employer] auth. Per ROUNDS discussion, Patient is having a Cystoscopy today and may not be medically cleared for dc until tomorrow. CM will follow.
--- NOTE | 2025-04-06 10:58 | PM.PNCARD ---
Subjective Subjective Date of Service: 04/06/25 Interval history: Seen and examined at bedside. Blood pressure is elevated. He is going for urological procedure for bladder stones. Physical Exam Vital Signs: Last Vital Signs Temp 97.6 F 04/06/25 07:34 Pulse 76 04/06/25 07:34 Resp 16 04/06/25 07:34 BP 160/100 H 04/06/25 09:21 Pulse Ox 96 04/06/25 07:34 O2 Del Method Room Air 04/06/25 07:34 O2 Flow Rate 2 04/03/25 03:26 BMI result Body Mass Index 37.3 GENERAL APPEARANCE: in no acute distress, pleasant. NECK: no carotid bruit, no jugular venous distention. SKIN: no suspicious lesions, warm and dry. HEART: no murmurs, irregular rate and rhythm. LUNGS: clear to auscultation bilaterally. ABDOMEN: soft, nontender. EXTREMITIES: 2+ edema to knees. PERIPHERAL PULSES: equal. NEUROLOGIC: No gross deficits, AAO X 3 Objective Labs and Meds 04/05/25 06:32 04/05/25 06:32 Lab results: Laboratory Results - last 24 hr 04/06/25 06:12 Hold Purple Top SEE NOTE D-Dimer High Sensitivty 738 Progress Note: A&P Assessment and plan (1) Persistent atrial fibrillation: Status: Acute (2) HTN (hypertension): Status: Acute (3) Heart failure: Status: Acute Plan Pleasant 79-year-old gentleman who is here for urinary tract infection, dehydration and syncope. He was noticed to be bradycardic and we were consulted. Bradycardia is not the reason for syncope. Has persistent atrial fibrillation and has been following closely with electrophysiology. Blood pressure is elevated. Amlodipine has been discontinued because he has significant peripheral edema and amlodipine is definitely playing a big role in that. Hydralazine has been titrated to 50 mg 3 times a day. Metoprolol was resumed at 25 mg, if heart rate stays stable it can be titrated back to 50 mg. He is also on lisinopril 40 mg daily which can be resumed. Thank you for allowing me to participate in the care of your patient. Please feel free to contact me if you have any questions. Time Spent With Patient Time: Total time managing care of this patient today ____ minutes. Progress Note: Quality Stroke Does the patient have a stroke diagnosis?: No Procedures Date of Service Date of Service: 04/06/25
[2025-04-06] MEDS: hydrALAZINE HCl 50 MG TABLET PO ×2 (15:32→20:38)
[2025-04-06 16:14] LABS: Glucose, Whole Blood 115 mg/dL (60-115)
--- NOTE | 2025-04-06 16:16 | HO.ANESPROP2 ---
[facility] Active Problems Active Problems: All Active Problems Bladder stones (Acute) Lumbar radiculopathy, chronic (Acute) Syncope (Acute) Bradycardia (Acute) Adult failure to thrive (Acute) Rhabdomyolysis (Acute) Unwitnessed fall (Acute) Prostatitis (Acute) Bladder pain (Acute) CKD (chronic kidney disease) (Acute) Heart failure (Acute) Sleep disorder breathing (Acute) Chronic atrial fibrillation (Acute) SNOW (dyspnea on exertion) (Acute) Chronic UTI (urinary tract infection) (Acute) Elevated PSA (Acute) Persistent atrial fibrillation (Acute) HTN (hypertension) (Acute) BPH (benign prostatic hyperplasia) (Acute) Urinary retention (Acute) Past Medical History Medical History (Updated 04/05/25 @ 18:04 by Lowell Bellamy MD) History of cardioversion AAA (abdominal aortic aneurysm) Persistent atrial fibrillation Diabetes HTN (hypertension) Urinary retention BPH (benign prostatic hyperplasia) Family History Family History Mother Heart disease HTN (hypertension) Diabetes Father HTN (hypertension) Diabetes Family history of problems with anesthesia: No Surgical History Surgical History (Updated 04/06/25 @ 16:20 by Maki Schmitt RN) Hx of tonsillectomy H/O heart surgery History of prostate surgery Hx of aortic valve replacement History of Problems with Anesthesia: No Social History Social History Household Members: None Housing: House Are you a primary healthcare account manager to a significant other at home: No Do you presently have visiting nurse or other home services: No Alcohol intake: never Patient Tobacco Use Status: Never used Tobacco Smoked in Last 30 Days: No Use of substances other than those prescribed or required for medical reasons: No Currently Displaying Signs/Symptoms of Drug Intoxication Withdrawal: No Have you been hit, kicked, punched, or otherwise hurt by someone within the past year? If so, by whom?: No [facility] Practices: n/a Are you DNR?: No Advance Directives: Yes Advance Directives Information Provided: Yes Advance Directives on File: Yes Advance Directives Date on File: 04/02/25 Do you have a plan to hurt others: No Plan Recently lost weight without trying: No Nutrition Risks: No Nutritional Risk Poor oral hygiene: No service: No Meds Allergies Allergy/AdvReac Type Severity Reaction Status Date / Time amlodipine AdvReac Intermediate Swelling Uncoded 04/06/25 15:59 Active Medications: Current Medications Acetaminophen (Acetaminophen 325 Mg Tablet) 650 mg PO Q6H PRN PRN Reason: Pain, Mild 1-3,fever,headache Last Admin: 04/02/25 16:41 Dose: 650 mg Calcium Carbonate (Calcium Carbonate 750 Mg Tab.Chew) 750 mg PO Q4H PRN PRN Reason: Heartburn Ceftriaxone Sodium (Ceftriaxone Sodium 1 Gm Vial) 1 gm IVPUSH Q12H [facility] Last Admin: 04/06/25 13:49 Dose: 1 gm Doxazosin Mesylate (Doxazosin Mesylate 2 Mg Tablet) 16 mg PO DAILY [facility]; Protocol Last Admin: 04/06/25 09:22 Dose: 16 mg Enoxaparin Sodium (Enoxaparin Sodium 40 Mg/0.4 Ml Syringe) 40 mg SUBCUT Q24H [facility] Last Admin: 04/06/25 09:21 Dose: 40 mg Hydralazine HCl (Hydralazine Hcl 50 Mg Tablet) 50 mg PO TID [facility]; Protocol Last Admin: 04/06/25 15:32 Dose: 50 mg Ibuprofen (Ibuprofen 400 Mg Tablet) 400 mg PO Q6H PRN PRN Reason: Pain, Moderate(Pain Scale 4-6) Last Admin: 04/05/25 14:40 Dose: 400 mg Lactic Acid (Ammonium Lactate 12 % Lotion 226 Gm Bottle) 1 appl TOPICAL DAILY PRN; Protocol PRN Reason: Dry Skin Magnesium Hydroxide (Milk Of Magnesia 30 Ml Oral.Susp) 30 ml PO DAILY PRN PRN Reason: Constipation Melatonin (Melatonin 3 Mg Tablet) 6 mg PO BEDTIME PRN PRN Reason: Insomnia Metoprolol Succinate (Metoprolol Succinate Er 25 Mg Tab.Er.24h) 25 mg PO DAILY [facility]; Protocol Multivitamins/Vitamin C (Multivitamin Tablet) 1 tab PO DAILY [facility] Last Admin: 04/06/25 09:22 Dose: 1 tab Ondansetron HCl (Ondansetron Hcl 4 Mg/2 Ml Vial) 4 mg IVPUSH Q8H PRN PRN Reason: Nausea and Vomiting Sodium Chloride (0.9 % Sodium Chloride Flush 3 Ml Syringe) 3 ml IVFLUSH QSHIFT [facility] Last Admin: 04/06/25 15:33 Dose: 3 ml Home Medications ?Medication ?Instructions ?Recorded ?Confirmed ?Last Taken ?Type potassium chloride 20 mEq 20 meq PO Q48H 08/25/23 04/02/25 03/29/25 History tablet,extended release ibuprofen 200 mg tablet (Advil) 400 mg PO Q8H PRN Pain (Scale 03/14/24 04/02/25 03/29/25 History Score 1-3) amlodipine 5 mg tablet 5 mg PO DAILY 04/02/25 04/02/25 03/29/25 History doxazosin 8 mg tablet 16 mg PO DAILY 04/02/25 04/02/25 03/29/25 History furosemide 40 mg tablet (Lasix) 40 mg PO Q48H 04/02/25 04/02/25 03/29/25 History Exam Height,Weight and Vital Signs: Height 5 ft 9 in Weight 114.7 kg Last Vital Signs Temp 98.2 F 04/06/25 16:00 Pulse 82 04/06/25 16:00 Resp 16 04/06/25 16:00 BP 150/97 H 04/06/25 16:00 Pulse Ox 97 04/06/25 16:00 O2 Del Method Room Air 04/06/25 16:00 O2 Flow Rate 2 04/03/25 03:26 Pertinent Lab Results Pertinent Lab Results: Laboratory Tests 04/02/25 04/02/25 04/02/25 11:33 11:34 15:38 WBC 10.1 RBC 5.18 Hgb 14.1 Hct 43.3 MCV 83.6 MCH 27.2 MCHC 32.6 RDW 14.6 Plt Count 200 MPV 9.4 Immature Gran % (Auto) 0.5 H Neut % (Auto) 84.1 H Lymph % (Auto) 6.3 L [place] % (Auto) 7.2 Eos % (Auto) 1.5 Baso % (Auto) 0.4 Lymph # (Auto) 0.6 L [place] # (Auto) 0.7 Eos # (Auto) 0.2 Baso # (Auto) 0.0 Abs Immat Gran (auto) 0.05 H Absolute Neuts (auto) 8.5 H Absolute Nucleated RBC 0.000 Nucleated RBC % (auto) 0.0 Hold Purple Top PT INR D-Dimer High Sensitivty Sodium 144 Potassium 3.5 Chloride 109 H Carbon Dioxide 23 Anion Gap 16 BUN 21 H Creatinine 0.78 Estim Creat Clear Calc 99.0 Estimated GFR > 60 POC Glucose Random Glucose 83 Lactic Acid 1.4 Calcium 8.8 Magnesium 2.1 Total Bilirubin 1.8 H Direct Bilirubin AST 118 H ALT 55 H Alkaline Phosphatase 96 Ammonia 29 Total Creatine Kinase 1792 H Troponin I High Sens 16.8 B-Natriuretic Peptide Total Protein 6.2 L Albumin 3.7 Lipase 5 L PSA Screen TSH 2.95 Urine Color DK YELLOW Urine Appearance Cloudy Urine pH 6.0 Ur Specific Emmett >= 1.030 H Urine Protein 300 (3+) H Urine Glucose (UA) Negative Urine Ketones >=80 Urine Blood Large (3+) H Urine Nitrite Negative Ur Leukocyte Esterase Small (1+) H Urine RBC >20 H Urine WBC >50 H Ur Squamous Epith Cells 3-5 Urine Bacteria None Seen Hyaline Casts 0-2 Urine Yeast Present Ethyl Alcohol 10 Influenza Type A (PCR) NEGATIVE Influenza Type B (PCR) NEGATIVE RSV RNA Qual (PCR) NEGATIVE SARS-CoV-2 RNA (RT-PCR) NEGATIVE 04/03/25 04/04/25 04/05/25 06:12 06:51 06:32 WBC 8.8 5.7 RBC 4.36 L 4.22 L Hgb 11.9 L 11.6 L Hct 35.9 L 35.0 L MCV 82.3 82.9 MCH 27.3 27.5 MCHC 33.1 33.1 RDW 14.9 15.0 Plt Count 180 173 MPV 9.5 9.8 Immature Gran % (Auto) 0.5 H Neut % (Auto) 76.3 H Lymph % (Auto) 8.5 L [place] % (Auto) 9.8 Eos % (Auto) 4.3 H Baso % (Auto) 0.6 Lymph # (Auto) 0.8 L [place] # (Auto) 0.9 Eos # (Auto) 0.4 Baso # (Auto) 0.1 Abs Immat Gran (auto) 0.04 H Absolute Neuts (auto) 6.7 Absolute Nucleated RBC 0.000 0.000 Nucleated RBC % (auto) 0.0 0.0 Hold Purple Top SEE NOTE PT 13.7 H INR 1.2 H D-Dimer High Sensitivty Sodium 139 141 143 Potassium 3.6 3.8 3.8 Chloride 109 H 108 109 H Carbon Dioxide 24 26 26 Anion Gap 10 L 11 L 12 BUN 23 H 19 H 14 Creatinine 0.75 0.81 0.84 Estim Creat Clear Calc 103.0 95.3 91.9 Estimated GFR > 60 > 60 > 60 POC Glucose Random Glucose 109 116 H 117 H Lactic Acid Calcium 8.2 L D 8.4 8.4 Magnesium 1.7 Total Bilirubin 1.1 H 0.6 Direct Bilirubin 0.3 AST 99 H 63 H ALT 57 H 65 H Alkaline Phosphatase 73 88 Ammonia Total Creatine Kinase 1324 H 806 H Troponin I High Sens B-Natriuretic Peptide 346 H Total Protein 5.2 L 5.5 L Albumin 3.0 L 3.0 L Lipase PSA Screen 22.15 H TSH Urine Color Urine Appearance Urine pH Ur Specific Emmett Urine Protein Urine Glucose (UA) Urine Ketones Urine Blood Urine Nitrite Ur Leukocyte Esterase Urine RBC Urine WBC Ur Squamous Epith Cells Urine Bacteria Hyaline Casts Urine Yeast Ethyl Alcohol Influenza Type A (PCR) Influenza Type B (PCR) RSV RNA Qual (PCR) SARS-CoV-2 RNA (RT-PCR) 04/06/25 04/06/25 06:12 16:08 WBC RBC Hgb Hct MCV MCH MCHC RDW Plt Count MPV Immature Gran % (Auto) Neut % (Auto) Lymph % (Auto) [place] % (Auto) Eos % (Auto) Baso % (Auto) Lymph # (Auto) [place] # (Auto) Eos # (Auto) Baso # (Auto) Abs Immat Gran (auto) Absolute Neuts (auto) Absolute Nucleated RBC Nucleated RBC % (auto) Hold Purple Top SEE NOTE PT INR D-Dimer High Sensitivty 738 Sodium Potassium Chloride Carbon Dioxide Anion Gap BUN Creatinine Estim Creat Clear Calc Estimated GFR POC Glucose 115 Random Glucose Lactic Acid Calcium Magnesium Total Bilirubin Direct Bilirubin AST ALT Alkaline Phosphatase Ammonia Total Creatine Kinase Troponin I High Sens B-Natriuretic Peptide Total Protein Albumin Lipase PSA Screen TSH Urine Color Urine Appearance Urine pH Ur Specific Emmett Urine Protein Urine Glucose (UA) Urine Ketones Urine Blood Urine Nitrite Ur Leukocyte Esterase Urine RBC Urine WBC Ur Squamous Epith Cells Urine Bacteria Hyaline Casts Urine Yeast Ethyl Alcohol Influenza Type A (PCR) Influenza Type B (PCR) RSV RNA Qual (PCR) SARS-CoV-2 RNA (RT-PCR) Airway Mallampati Class: II TM Dist: >3cm Neck ROM: Full Heart: rrr Lungs: cta Assessment and Plan Assessment Anesthesia Assessment: Anesthesia Plan Discussed and Chart Reviewed Final Anesthetic Review Family History of Problems with Anesthesia: No History of Problems with Anesthesia: No NPO: Yes ASA Class: III Final Preanesthetic Review: No Changes in Pt Med Stat, Meds/Allgs Chart Reviewed and Consent Obtained/Reviewed Patient Risk: Intermediate Procedure Risk: Low Anesthetic Plan Anesthetic Plan: GA Disposition: Standard PACU
--- NOTE | 2025-04-06 16:45 | MHC.SHP ---
Pre-Procedural Eval Section A - 24 Hr Update-Section A only Date of Service: 04/06/25 The patient is an INPATIENT: Yes Changes since office visit: No Cold of Flu in the past 2 weeks, No New Medical Problems, No Changes in Medication and No Patient answered all questions The patient has been examined within 24 hours of the surgical procedure. The History & Physical has been completed within 30 days and I have reviewed it.: No Section B - Complete if H&P > 30 days Chief Complaint: Suncope fall Details of Present Illness: bladder stone Relevant Family History (Specify if Yes): No Relevant Social History: None Present Medications: see Short Stay Collaborative assessment Medical History: Significant History History of Previous Operations: No relevant previous surgery Allergies: Allergies Allergy/AdvReac Type Severity Reaction Status Date / Time amlodipine AdvReac Intermediate Swelling Uncoded 04/06/25 15:59 Review of Systems Sugical H&P ROS: Negative: Constitution, Cardiovascular, Respiratory, Neurological, Psychiatric, Hem-Onc, Allergic/Immunologic, Gastrointestinal, Genitourinary, Musculoskeletal, Integumentary, Endocrine and Eyes/Ears/Nose/Throat Exam Surgical H&P Exam: Normal: HEENT, Normal: Heart, Normal: Lungs, Normal: Extremities, Normal: Abdomen, Normal: Skin and Normal: Neurological Plan Diagnosis/Plan: Unchanged (cystoscopy bladder stones) I have reviewed the history and physical and performed a pertinent physical examination on my patient. No changes have occurred unless specified. Time Spent With Patient Time: Total time managing care of this patient today ____ minutes.
[2025-04-06] MEDS: Acetaminophen 1,000 MG/100 ML PIGGYBACK 400 MG IV (19:28)
[2025-04-06] MEDS: Morphine Sulfate 2 MG/ML CARTRIDGE IVPUSH (20:38)
[2025-04-07] VITALS (7 sets, daily range): BP systolic 111–185; BP diastolic 62–96; PULSE 51–80; RESP 16–19; TEMP 36.1–37.3; O2SAT 96–99
[2025-04-07] MEDS: cefTRIAXone sodium 1 GM VIAL IVPUSH ×2 (03:11→11:38)
--- NOTE | 2025-04-07 09:06 | P.PNIM_ITS ---
Subjective Subjective Date of Service: 04/07/25 Interval History: hematuria improved Physical Exam 2 Vital Signs: Vital Signs: Last Vital Signs Temp 99.2 F 04/07/25 07:34 Pulse 75 04/07/25 07:34 Resp 19 04/07/25 07:34 BP 185/96 H 04/07/25 07:34 Pulse Ox 96 04/07/25 07:34 O2 Del Method Room Air 04/07/25 07:34 O2 Flow Rate 2 04/06/25 19:42 BMI result Body Mass Index 37.3 GENERAL APPEARANCE: in no acute distress, pleasant. NECK: no carotid bruit, no jugular venous distention. SKIN: no suspicious lesions, warm and dry. HEART: no murmurs, irregular rate and rhythm. LUNGS: clear to auscultation bilaterally. ABDOMEN: soft, nontender. EXTREMITIES: 2+ edema to knees. PERIPHERAL PULSES: equal. NEUROLOGIC: No gross deficits, AAO X 3 Objective Data Active Medications Acetaminophen (Acetaminophen 325 Mg Tablet) 650 mg PO Q6H PRN PRN Reason: Pain, Mild 1-3,fever,headache Last Admin: 04/02/25 16:41 Dose: 650 mg Documented By: BURAK Calcium Carbonate (Calcium Carbonate 750 Mg Tab.Chew) 750 mg PO Q4H PRN PRN Reason: Heartburn Ceftriaxone Sodium (Ceftriaxone Sodium 1 Gm Vial) 1 gm IVPUSH Q12H [facility] Last Admin: 04/07/25 03:11 Dose: 1 gm Documented By: NATHANIEL Doxazosin Mesylate (Doxazosin Mesylate 2 Mg Tablet) 16 mg PO DAILY [facility]; Protocol Last Admin: 04/06/25 09:22 Dose: 16 mg Documented By: CHITRA Enoxaparin Sodium (Enoxaparin Sodium 40 Mg/0.4 Ml Syringe) 40 mg SUBCUT Q24H [facility] Last Admin: 04/06/25 09:21 Dose: 40 mg Documented By: CHITRA Hydralazine HCl (Hydralazine Hcl 50 Mg Tablet) 50 mg PO TID [facility]; Protocol Last Admin: 04/06/25 20:38 Dose: 50 mg Documented By: NATHANIEL Ibuprofen (Ibuprofen 400 Mg Tablet) 400 mg PO Q6H PRN PRN Reason: Pain, Moderate(Pain Scale 4-6) Last Admin: 04/05/25 14:40 Dose: 400 mg Documented By: CHITRA Lactic Acid (Ammonium Lactate 12 % Lotion 226 Gm Bottle) 1 appl TOPICAL DAILY PRN; Protocol PRN Reason: Dry Skin Lisinopril (Lisinopril 40 Mg Tablet) 40 mg PO DAILY [facility]; Protocol Magnesium Hydroxide (Milk Of Magnesia 30 Ml Oral.Susp) 30 ml PO DAILY PRN PRN Reason: Constipation Melatonin (Melatonin 3 Mg Tablet) 6 mg PO BEDTIME PRN PRN Reason: Insomnia Metoprolol Succinate (Metoprolol Succinate Er 25 Mg Tab.Er.24h) 25 mg PO DAILY [facility]; Protocol Multivitamins/Vitamin C (Multivitamin Tablet) 1 tab PO DAILY [facility] Last Admin: 04/06/25 09:22 Dose: 1 tab Documented By: CHITRA Naloxone HCl (Naloxone Hcl 0.4 Mg/Ml Vial) 0.04 mg IVPUSH Q5M PRN PRN Reason: Excessive sedation or RR < 8 Ondansetron HCl (Ondansetron Hcl 4 Mg/2 Ml Vial) 4 mg IVPUSH Q8H PRN PRN Reason: Nausea and Vomiting Sodium Chloride (0.9 % Sodium Chloride Flush 3 Ml Syringe) 3 ml IVFLUSH QSHIFT [facility] Last Admin: 04/06/25 20:39 Dose: 3 ml Documented By: NATHANIEL Labs 04/05/25 06:32 04/05/25 06:32 Labs: Laboratory Results - last 24 hr 04/06/25 16:08 POC Glucose 115 Assessment and Plan (1) Heart failure: Status: Acute Plan 79M PMH pafib, hfpef, htn, bph, recurrent uti presented with syncope syncope, FTT ?cardiogenic vs neurogenic vs dehydration from recent diarrheal illness noted bradycardia on tele, improved, restarted toprol at 25mg daily neuro appreciated - likely dehydation, check eeg transaminitis mostly mild rhabdo, though may be component of ETOH - patient denies, but etoh level noted to be 10 improved large bladder stone with recurrent UTIs urology appreciated - s/p laser 04/06/25, plan for repeat 04/09/25 pafib toprol not on AC - due to left atrial appendagectomy during bioavr surgery htn uncontrolled hydralazine increased to 50mg tid restarting lisinopril continue toprol 25mg stopped amlodipine due to edema dvt prophylaxis - Lovenox full code reason for continued hospitalization:cysto 04/09/25 Quality Stroke Does the patient have a stroke diagnosis?: No VTE Prior VTE?: No VTE Risk Level:: Medical - moderate - high VTE Device Contraindication: N/A - Device Ordered VTE Drug Contraindication: Treatment Not Indicated
[2025-04-07] MEDS: Doxazosin Mesylate 2 MG TABLET 16 MG PO (09:12)
[2025-04-07] MEDS: Multivitamin TABLET 1 TAB PO (09:12)
[2025-04-07] MEDS: lisinopriL 40 MG TABLET PO (09:12)
[2025-04-07] MEDS: Enoxaparin Sodium 40 MG/0.4 ML SYRINGE SUBCUT (09:12)
[2025-04-07] MEDS: hydrALAZINE HCl 50 MG TABLET PO ×2 (09:13→19:24)
[2025-04-07] MEDS: Metoprolol Succinate ER 25 MG TAB.ER.24H PO (09:13)
[2025-04-07] MEDS: 0.9 % Sodium Chloride Flush 3 ML SYRINGE IVFLUSH ×2 (09:13→16:44)
[2025-04-07] MEDS: Isosorbide Mononitrate 30 MG TAB.ER.24H PO (11:38)
--- NOTE | 2025-04-07 12:02 | PM.PNCARD ---
Subjective Subjective Date of Service: 04/07/25 Interval history: Seen examined at bedside. No acute complaints. Physical Exam Vital Signs: Last Vital Signs Temp 99.0 F 04/07/25 11:33 Pulse 67 04/07/25 11:33 Resp 18 04/07/25 11:33 BP 172/84 H 04/07/25 11:33 Pulse Ox 99 04/07/25 11:33 O2 Del Method Room Air 04/07/25 11:33 O2 Flow Rate 2 04/06/25 19:42 BMI result Body Mass Index 37.3 GENERAL APPEARANCE: in no acute distress, pleasant. NECK: no carotid bruit, no jugular venous distention. SKIN: no suspicious lesions, warm and dry. HEART: no murmurs, irregular rate and rhythm. LUNGS: clear to auscultation bilaterally. ABDOMEN: soft, nontender. EXTREMITIES: 1-2+ edema to knees. PERIPHERAL PULSES: equal. NEUROLOGIC: No gross deficits, AAO X 3 Objective Labs and Meds 04/05/25 06:32 04/05/25 06:32 Lab results: Laboratory Results - last 24 hr 04/06/25 16:08 POC Glucose 115 Progress Note: A&P Assessment and plan (1) Persistent atrial fibrillation: Status: Acute (2) HTN (hypertension): Status: Acute (3) Heart failure: Status: Acute Plan Pleasant 79-year-old gentleman who is here for urinary tract infection, dehydration and syncope. He was noticed to be bradycardic and we were consulted. Bradycardia is not the reason for syncope. Has persistent atrial fibrillation and has been following closely with electrophysiology. Blood pressure is elevated. Amlodipine has been discontinued because he has significant peripheral edema and amlodipine is definitely playing a big role in that. Titrating hydralazine and adding Imdur 30 mg. Metoprolol can potentially be changed to carvedilol 6.25 mg twice a day in case we do not make progress with hydralazine and nitrates. On lisinopril 40 mg daily. We will follow along with you. Thank you for allowing me to participate in the care of your patient. Please feel free to contact me if you have any questions. Time Spent With Patient Time: Total time managing care of this patient today ____ minutes. Progress Note: Quality Stroke Does the patient have a stroke diagnosis?: No Procedures Date of Service Date of Service: 04/07/25
[2025-04-07] MEDS: Milk of Magnesia 30 ML ORAL.SUSP PO (13:13)
[2025-04-07] MEDS: bisacodyL 10 MG SUPP.RECT PR (19:23)
[2025-04-08] VITALS (8 sets, daily range): BP systolic 115–151; BP diastolic 58–80; PULSE 62–78; RESP 18–20; TEMP 36.6–37.3; O2SAT 95–99
[2025-04-08] MEDS: cefTRIAXone sodium 1 GM VIAL IVPUSH ×3 (00:45→23:51)
[2025-04-08] MEDS: 0.9 % Sodium Chloride Flush 3 ML SYRINGE IVFLUSH ×4 (00:45→21:23)
[2025-04-08 07:43] LABS: Hematocrit 32.2 % (42.0-52.0); Hemoglobin 10.6 g/dl (14.0-18.0); Mean Corpuscular HGB Conc 32.9 g/dl (31.0-36.0); Mean Corpuscular Hemoglobin 27.5 pg (27.0-33.0); Mean Corpuscular Volume 83.6 fL (80.0-98.0); Mean Platelet Volume 10.1 fL (9.4-12.4); Platelet Count 176 X10*3/uL (160-400); Red Blood Count 3.85 X10*6/uL (4.60-5.80); Red Cell Distribution Width 15.2 % (11.0-16.0); White Blood Count 8.8 X10*3/uL (4.8-10.8)
[2025-04-08 07:59] LABS: Alanine Aminotransferase 37 U/L (0-40); Albumin Level 2.9 g/dL (3.5-5.0); Alkaline Phosphatase 96 U/L (39-117); Anion Gap 11 (12-20); Aspartate Amino Transferase 25 U/L (5-37); Bilirubin Direct 0.2 mg/dL (0.0-0.5); Bilirubin Total 0.3 mg/dL (0.0-1.0); Blood Urea Nitrogen 18 mg/dL (9-16); Calcium 8.7 mg/dL (8.4-10.2); Carbon Dioxide 28 mmol/L (22-29); Chloride 103 mmol/L (96-108); Creatinine Clr Calc Pharmacy 76.4; Estimated Glomerular Filt Rate > 60; Glucose Random 141 mg/dL (60-115); Potassium 3.7 mmol/L (3.3-5.1); Sodium 138 mmol/L (135-145); Total Protein 5.3 g/dL (6.5-8.0)
--- NOTE | 2025-04-08 08:42 | HO.PM.IMPN ---
Subjective Subjective Date of Service: 04/08/25 Interval History: hematuria improved Physical Exam Vital Signs: Vital Signs: Last Vital Signs Temp 98.2 F 04/08/25 07:33 Pulse 70 04/08/25 07:33 Resp 20 04/08/25 07:33 BP 136/77 04/08/25 07:33 Pulse Ox 95 04/08/25 07:33 O2 Del Method Room Air 04/08/25 07:33 O2 Flow Rate 2 04/06/25 19:42 BMI result Body Mass Index 37.3 GENERAL APPEARANCE: in no acute distress, pleasant. NECK: no carotid bruit, no jugular venous distention. SKIN: no suspicious lesions, warm and dry. HEART: no murmurs, irregular rate and rhythm. LUNGS: clear to auscultation bilaterally. ABDOMEN: soft, nontender. EXTREMITIES: 1-2+ edema to knees. PERIPHERAL PULSES: equal. NEUROLOGIC: No gross deficits, AAO X 3 Objective Data Active Medications Acetaminophen (Acetaminophen 325 Mg Tablet) 650 mg PO Q6H PRN PRN Reason: Pain, Mild 1-3,fever,headache Last Admin: 04/02/25 16:41 Dose: 650 mg Documented By: BURAK Bisacodyl (Bisacodyl 10 Mg Supp.Rect) 10 mg MO ONCE PRN PRN Reason: Constipation Last Admin: 04/07/25 19:23 Dose: 10 mg Documented By: NATHANIEL Calcium Carbonate (Calcium Carbonate 750 Mg Tab.Chew) 750 mg PO Q4H PRN PRN Reason: Heartburn Ceftriaxone Sodium (Ceftriaxone Sodium 1 Gm Vial) 1 gm IVPUSH Q12H [facility] Last Admin: 04/08/25 00:45 Dose: 1 gm Documented By: NATHANIEL Doxazosin Mesylate (Doxazosin Mesylate 2 Mg Tablet) 16 mg PO DAILY [facility]; Protocol Last Admin: 04/07/25 09:12 Dose: 16 mg Documented By: RENETTA Enoxaparin Sodium (Enoxaparin Sodium 40 Mg/0.4 Ml Syringe) 40 mg SUBCUT Q24H [facility] Last Admin: 04/07/25 09:12 Dose: 40 mg Documented By: RENETTA Hydralazine HCl (Hydralazine Hcl 50 Mg Tablet) 50 mg PO TID [facility]; Protocol Last Admin: 04/07/25 19:24 Dose: 50 mg Documented By: NATHANIEL Ibuprofen (Ibuprofen 400 Mg Tablet) 400 mg PO Q6H PRN PRN Reason: Pain, Moderate(Pain Scale 4-6) Last Admin: 04/05/25 14:40 Dose: 400 mg Documented By: CHITRA Isosorbide Mononitrate (Isosorbide Mononitrate 30 Mg Tab.Er.24h) 30 mg PO DAILY [facility]; Protocol Last Admin: 04/07/25 11:38 Dose: 30 mg Documented By: RENETTA Lactic Acid (Ammonium Lactate 12 % Lotion 226 Gm Bottle) 1 appl TOPICAL DAILY PRN; Protocol PRN Reason: Dry Skin Lisinopril (Lisinopril 40 Mg Tablet) 40 mg PO DAILY [facility]; Protocol Last Admin: 04/07/25 09:12 Dose: 40 mg Documented By: RENETTA Magnesium Hydroxide (Milk Of Magnesia 30 Ml Oral.Susp) 30 ml PO DAILY PRN PRN Reason: Constipation Last Admin: 04/07/25 13:13 Dose: 30 ml Documented By: RENETTA Melatonin (Melatonin 3 Mg Tablet) 6 mg PO BEDTIME PRN PRN Reason: Insomnia Metoprolol Succinate (Metoprolol Succinate Er 25 Mg Tab.Er.24h) 25 mg PO DAILY [facility]; Protocol Last Admin: 04/07/25 09:13 Dose: 25 mg Documented By: RENETTA Multivitamins/Vitamin C (Multivitamin Tablet) 1 tab PO DAILY [facility] Last Admin: 04/07/25 09:12 Dose: 1 tab Documented By: RENETTA Naloxone HCl (Naloxone Hcl 0.4 Mg/Ml Vial) 0.04 mg IVPUSH Q5M PRN PRN Reason: Excessive sedation or RR < 8 Ondansetron HCl (Ondansetron Hcl 4 Mg/2 Ml Vial) 4 mg IVPUSH Q8H PRN PRN Reason: Nausea and Vomiting Sodium Chloride (0.9 % Sodium Chloride Flush 3 Ml Syringe) 3 ml IVFLUSH QSHIFT [facility] Last Admin: 04/08/25 00:45 Dose: 3 ml Documented By: NATHANIEL Labs 04/08/25 06:58 04/08/25 06:58 Labs: Laboratory Results - last 24 hr 04/08/25 06:58 MCV 83.6 MCH 27.5 MCHC 32.9 RDW 15.2 Plt Count 176 MPV 10.1 Absolute Nucleated RBC 0.000 Nucleated RBC % (auto) 0.0 Anion Gap 11 L Estim Creat Clear Calc 76.4 Estimated GFR > 60 Random Glucose 141 H Calcium 8.7 Total Bilirubin 0.3 Direct Bilirubin 0.2 AST 25 ALT 37 Alkaline Phosphatase 96 Total Creatine Kinase 63 Total Protein 5.3 L Albumin 2.9 L Microbiology Microbiology Results: Microbiology 04/02/25 12:47 Blood Culture - Final Blood - Venous No growth after 5 days. 04/02/25 11:33 Blood Culture - Final Blood - Venous No growth after 5 days. Assessment and Plan (1) Heart failure: Status: Acute Plan 79M PMH pafib, hfpef, htn, bph, recurrent uti presented with syncope syncope, FTT ?cardiogenic vs neurogenic vs dehydration from recent diarrheal illness noted bradycardia on tele, improved, restarted toprol at 25mg daily neuro appreciated - likely dehydation, check eeg transaminitis resolved, mostly from rhabdo large bladder stone with recurrent UTIs urology appreciated - s/p laser 04/06/25, plan for repeat 04/09/25 pafib toprol not on AC - due to left atrial appendagectomy during bioavr surgery htn uncontrolled now better cotnrolled hydralazine 50mg tid lisinopril 40 toprol 25mg imdur 30 stopped amlodipine due to edema dvt prophylaxis - Lovenox full code reason for continued hospitalization:cysto 04/09/25 Quality Stroke Does the patient have a stroke diagnosis?: No VTE Prior VTE?: No VTE Risk Level:: Medical - moderate - high VTE Device Contraindication: N/A - Device Ordered VTE Drug Contraindication: Treatment Not Indicated
[2025-04-08] MEDS: Enoxaparin Sodium 40 MG/0.4 ML SYRINGE SUBCUT (09:07)
[2025-04-08] MEDS: Metoprolol Succinate ER 25 MG TAB.ER.24H PO (09:08)
[2025-04-08] MEDS: Isosorbide Mononitrate 30 MG TAB.ER.24H PO (09:08)
[2025-04-08] MEDS: lisinopriL 40 MG TABLET PO (09:08)
[2025-04-08] MEDS: Acetaminophen 325 MG TABLET 650 MG PO ×2 (09:09→16:53)
[2025-04-08] MEDS: Doxazosin Mesylate 2 MG TABLET 16 MG PO (09:09)
[2025-04-08] MEDS: hydrALAZINE HCl 50 MG TABLET PO ×3 (09:09→21:22)
[2025-04-08] MEDS: Multivitamin TABLET 1 TAB PO (09:09)
--- NOTE | 2025-04-08 12:18 | HO.POSTANES ---
Post Anesthesia Evaluation Post Anesthesia Evaluation Date of Service: 04/08/25 Vital Signs: Vital Signs Temp Pulse Resp BP Pulse Ox O2 Del Method 04/08/25 11:09 98.5 F 75 20 132/75 97 Room Air 04/08/25 09:09 142/77 H 04/08/25 09:09 142/77 H 04/08/25 09:08 142/77 H 04/08/25 09:08 142/77 H 04/08/25 09:08 67 142/77 H 04/08/25 07:33 98.2 F 70 20 136/77 95 Room Air 04/08/25 03:41 97.9 F 62 18 151/80 H 99 Room Air Anesthesia: General LMA Mental Status: Awake Pain Control: Satisfactory Nausea/Vomiting: None Hydration: Adequate Anesthesia-Related Issues: No Anes. Related Issues
--- NOTE | 2025-04-08 13:48 | P.PNUR_ITS ---
Subjective Subjective Date of Service: 04/08/25 Interval history: Underwent extensive bladder stone laser and removal on Wednesday There are 2 more bladder stones that are left Procedure ran for 2-1/2 hours on Wednesday and decision to be made to complete this in the staged fashion We will complete laser therapy to stones tomorrow Urine currently draining clear Yoshi feeling somewhat improved Creatinine 1.0 Urine and blood culture have returned negative Physical Exam 2 Vital Signs: Vital Signs: Last Vital Signs Temp 98.5 F 04/08/25 11:09 Pulse 75 04/08/25 11:09 Resp 20 04/08/25 11:09 BP 132/75 04/08/25 11:09 Pulse Ox 97 04/08/25 11:09 O2 Del Method Room Air 04/08/25 11:09 O2 Flow Rate 2 04/06/25 19:42 BMI result Body Mass Index 37.3 Const: General: cooperative, healthy appearing, comfortable and no acute distress Orientation/consciousness: patient oriented x3 HEENT: Face and sinus: Yes normal facial exam Mouth: moist mucous membranes Neck: Neck: Yes normal visual inspection, Yes full ROM and Yes trachea midline Chest: Chest palpation & inspection: normal inspection of the chest Resp: Effort & Inspection: normal respiratory effort, able to speak in complete sentences and no respiratory distress GI: Inspection: Yes normal to inspection Back/Spine/Pelvis: Cervical Spine: normal cervical lordosis Thoracic/Lumbar Spine: thoracic and lumbar spine normal to inspection Skin: General skin exam: no rashes or lesions noted Neuro: General: patient oriented x3, tone normal and moves all extremities Extrem: General: Yes normal to inspection and Yes capillary refill normal Urology Results Labs 04/08/25 06:58 04/08/25 06:58 Labs: Laboratory Results - last 24 hr 04/08/25 06:58 WBC 8.8 RBC 3.85 L Hgb 10.6 L Hct 32.2 L MCV 83.6 MCH 27.5 MCHC 32.9 RDW 15.2 Plt Count 176 MPV 10.1 Absolute Nucleated RBC 0.000 Nucleated RBC % (auto) 0.0 Sodium 138 Potassium 3.7 Chloride 103 Carbon Dioxide 28 Anion Gap 11 L BUN 18 H Creatinine 1.01 Estim Creat Clear Calc 76.4 Estimated GFR > 60 Random Glucose 141 H Calcium 8.7 Total Bilirubin 0.3 Direct Bilirubin 0.2 AST 25 ALT 37 Alkaline Phosphatase 96 Total Creatine Kinase 63 Total Protein 5.3 L Albumin 2.9 L Progress Note: A&P Assessment and plan (1) Bladder stones: Status: Acute (2) Bladder pain: Status: Acute (3) Chronic UTI (urinary tract infection): Status: Acute Plan Plan bladder stent completion procedure tomorrow Time Spent With Patient Time: Total time managing care of this patient today ____ minutes. Progress Note: Quality Stroke Does the patient have a stroke diagnosis?: No
--- NOTE | 2025-04-08 13:50 | P.OP_ITS ---
Operative Note Operative Note Date of Service: 04/06/25 Narrative: PreOperative Diagnosis: Bladder Stone, Bladder Outlet Obstruction Post Operative Diagnosis: Bladder Stone, Bladder Outlet Obstruction Procedure: 1) Cystoscopy 2) Bladder Stone Laser - extensive multiple stones larger than 2.5cm - modifier 22 - 150% longer than typical - 120 min vs 45 min Surgeon: Dr Lowell Bellamy Anesthesia: LMA Indications for procedure: Recurrent UTI with hematuria. Admit with weakness. CT scan shows multiple 2.5 cm or greater stones within the bladder. Procedure: After informed consent was verified the patient was brought to the operating room and placed in a supine position. Anesthesia was administered per protocol. The patient was placed in modified dorsal lithotomy position and prepped and draped in a sterile fashion. Safety pause time-out was performed. Antibiotics being given. Cystoscopy was performed. Meatus dilated. Laser bridge resectoscope placed. No abnormality noted of anterior-posterior urethra. Large prostate. Prostate prior TURP and is open. Bladder entered. Multiple large stone as previously documented on imaging was seen. Bladder irritation. Using a 980nm holmium laser with bladder stones settings the stone was slowly broken into small pieces. The small pieces were irrigated from the bladder. This continued for approximately 120 min which is 150% longer than typical 45 minutes to break the stone. Proximally 3 of the 5 stones were able to be addressed. At that point ooze from the inflamed bladder mucosa had started to make visibility more challenging Upon completion the resectoscope was removed. A 20 [place] Morton catheter with 30 cc balloon was placed. This was done over a wire using a [place] tip. The catheter was irrigated with clear irrigant. Clamp was placed tight in balloon against prostate. Will be released in recovery area. The patient tolerated the procedure well. They were extubated in operating room and transferred in stable conditions recovery area. Pathology: Bladder Stones Drains: 20 Fr 30cc balloon
[2025-04-08] MEDS: Hydrocortisone 1 % Cream 28.35 GM TUBE 1 APPL TOPICAL (21:22)
[2025-04-09] VITALS (10 sets, daily range): BP systolic 112–163; BP diastolic 62–103; PULSE 53–81; RESP 16–18; TEMP 36.4–36.9; O2SAT 95–99
--- NOTE | 2025-04-09 07:57 | P.CONAN_ITS ---
HPI - Anesthesia Eval Consult details Narrative: 79 yo M presenting for cystoscopy laser bladder stone PMFSH Active Problems Active Problems: All Active Problems Bladder stones (Acute) Lumbar radiculopathy, chronic (Acute) Syncope (Acute) Bradycardia (Acute) Adult failure to thrive (Acute) Rhabdomyolysis (Acute) Unwitnessed fall (Acute) Prostatitis (Acute) Bladder pain (Acute) CKD (chronic kidney disease) (Acute) Heart failure (Acute) Sleep disorder breathing (Acute) Chronic atrial fibrillation (Acute) SNOW (dyspnea on exertion) (Acute) Chronic UTI (urinary tract infection) (Acute) Elevated PSA (Acute) Persistent atrial fibrillation (Acute) HTN (hypertension) (Acute) BPH (benign prostatic hyperplasia) (Acute) Urinary retention (Acute) Past Medical History Medical History (Updated 04/05/25 @ 18:04 by Lowell Bellamy MD) History of cardioversion AAA (abdominal aortic aneurysm) Persistent atrial fibrillation Diabetes HTN (hypertension) Urinary retention BPH (benign prostatic hyperplasia) Family History Family History Mother Heart disease HTN (hypertension) Diabetes Father HTN (hypertension) Diabetes Family history of problems with anesthesia: No Surgical History Surgical History (Updated 04/06/25 @ 16:20 by Maki Schmitt RN) Hx of tonsillectomy H/O heart surgery History of prostate surgery Hx of aortic valve replacement History of Problems with Anesthesia: No Social History Social History Household Members: None Housing: House Are you a primary family member caretaker to a significant other at home: No Do you presently have visiting nurse or other home services: No Alcohol intake: never Patient Tobacco Use Status: Never used Tobacco Smoked in Last 30 Days: No Use of substances other than those prescribed or required for medical reasons: No Currently Displaying Signs/Symptoms of Drug Intoxication Withdrawal: No Have you been hit, kicked, punched, or otherwise hurt by someone within the past year? If so, by whom?: No [employer] Healthcare Practices: n/a Are you DNR?: No Advance Directives: Yes Advance Directives Information Provided: Yes Advance Directives on File: Yes Advance Directives Date on File: 04/02/25 Do you have a plan to hurt others: No Plan Recently lost weight without trying: No Nutrition Risks: No Nutritional Risk Poor oral hygiene: No service: No Meds Allergies Allergy/AdvReac Type Severity Reaction Status Date / Time amlodipine AdvReac Intermediate Swelling Uncoded 04/06/25 15:59 Active Medications: Current Medications Acetaminophen (Acetaminophen 325 Mg Tablet) 650 mg PO Q6H PRN PRN Reason: Pain, Mild 1-3,fever,headache Last Admin: 04/08/25 16:53 Dose: 650 mg Bisacodyl (Bisacodyl 10 Mg Supp.Rect) 10 mg OR ONCE PRN PRN Reason: Constipation Last Admin: 04/07/25 19:23 Dose: 10 mg Calcium Carbonate (Calcium Carbonate 750 Mg Tab.Chew) 750 mg PO Q4H PRN PRN Reason: Heartburn Ceftriaxone Sodium (Ceftriaxone Sodium 1 Gm Vial) 1 gm IVPUSH Q12H [facility] Last Admin: 04/08/25 23:51 Dose: 1 gm Doxazosin Mesylate (Doxazosin Mesylate 2 Mg Tablet) 16 mg PO DAILY [facility]; Protocol Last Admin: 04/08/25 09:09 Dose: 16 mg Enoxaparin Sodium (Enoxaparin Sodium 40 Mg/0.4 Ml Syringe) 40 mg SUBCUT Q24H [facility] Last Admin: 04/08/25 09:07 Dose: 40 mg Hydralazine HCl (Hydralazine Hcl 50 Mg Tablet) 50 mg PO TID [facility]; Protocol Last Admin: 04/08/25 21:22 Dose: 50 mg Hydrocortisone (Hydrocortisone 1 % Cream 28.35 Gm Tube) 1 appl TOPICAL BID PRN; Protocol PRN Reason: Itching Last Admin: 04/08/25 21:22 Dose: 1 appl Ibuprofen (Ibuprofen 400 Mg Tablet) 400 mg PO Q6H PRN PRN Reason: Pain, Moderate(Pain Scale 4-6) Last Admin: 04/05/25 14:40 Dose: 400 mg Isosorbide Mononitrate (Isosorbide Mononitrate 30 Mg Tab.Er.24h) 30 mg PO DAILY [facility]; Protocol Last Admin: 04/08/25 09:08 Dose: 30 mg Lactic Acid (Ammonium Lactate 12 % Lotion 226 Gm Bottle) 1 appl TOPICAL DAILY PRN; Protocol PRN Reason: Dry Skin Lisinopril (Lisinopril 40 Mg Tablet) 40 mg PO DAILY [facility]; Protocol Last Admin: 04/08/25 09:08 Dose: 40 mg Magnesium Hydroxide (Milk Of Magnesia 30 Ml Oral.Susp) 30 ml PO DAILY PRN PRN Reason: Constipation Last Admin: 04/07/25 13:13 Dose: 30 ml Melatonin (Melatonin 3 Mg Tablet) 6 mg PO BEDTIME PRN PRN Reason: Insomnia Metoprolol Succinate (Metoprolol Succinate Er 25 Mg Tab.Er.24h) 25 mg PO DAILY [facility]; Protocol Last Admin: 04/08/25 09:08 Dose: 25 mg Multivitamins/Vitamin C (Multivitamin Tablet) 1 tab PO DAILY [facility] Last Admin: 04/08/25 09:09 Dose: 1 tab Naloxone HCl (Naloxone Hcl 0.4 Mg/Ml Vial) 0.04 mg IVPUSH Q5M PRN PRN Reason: Excessive sedation or RR < 8 Ondansetron HCl (Ondansetron Hcl 4 Mg/2 Ml Vial) 4 mg IVPUSH Q8H PRN PRN Reason: Nausea and Vomiting Sodium Chloride (0.9 % Sodium Chloride Flush 3 Ml Syringe) [address] [facility] Last Admin: 04/08/25 21:23 Dose: 3 ml Home Medications ?Medication ?Instructions ?Recorded ?Confirmed ?Last Taken ?Type potassium chloride 20 mEq 20 meq PO Q48H 08/25/23 04/02/25 03/29/25 History tablet,extended release ibuprofen 200 mg tablet (Advil) 400 mg PO Q8H PRN Pain (Scale 03/14/24 04/02/25 03/29/25 History Score 1-3) amlodipine 5 mg tablet 5 mg PO DAILY 04/02/25 04/02/25 03/29/25 History doxazosin 8 mg tablet 16 mg PO DAILY 04/02/25 04/02/25 03/29/25 History furosemide 40 mg tablet (Lasix) 40 mg PO Q48H 04/02/25 04/02/25 03/29/25 History Exam Exam Date and Time: 04/09/25 0800 Height,Weight and Vital Signs: Height 5 ft 9 in Weight 114.7 kg Last Vital Signs Temp 98.3 F 04/09/25 07:55 Pulse 74 04/09/25 07:55 Resp 18 04/09/25 07:55 BP 156/90 H 04/09/25 07:55 Pulse Ox 95 04/09/25 07:55 O2 Del Method Room Air 04/09/25 07:55 O2 Flow Rate 2 04/06/25 19:42 Pertinent Lab Results Pertinent Lab Results: Laboratory Tests 04/02/25 04/02/25 04/02/25 11:33 11:34 15:38 WBC 10.1 RBC 5.18 Hgb 14.1 Hct 43.3 MCV 83.6 MCH 27.2 MCHC 32.6 RDW 14.6 Plt Count 200 MPV 9.4 Immature Gran % (Auto) 0.5 H Neut % (Auto) 84.1 H Lymph % (Auto) 6.3 L [place] % (Auto) 7.2 Eos % (Auto) 1.5 Baso % (Auto) 0.4 Lymph # (Auto) 0.6 L [place] # (Auto) 0.7 Eos # (Auto) 0.2 Baso # (Auto) 0.0 Abs Immat Gran (auto) 0.05 H Absolute Neuts (auto) 8.5 H Absolute Nucleated RBC 0.000 Nucleated RBC % (auto) 0.0 Hold Purple Top PT INR D-Dimer High Sensitivty Sodium 144 Potassium 3.5 Chloride 109 H Carbon Dioxide 23 Anion Gap 16 BUN 21 H Creatinine 0.78 Estim Creat Clear Calc 99.0 Estimated GFR > 60 POC Glucose Random Glucose 83 Lactic Acid 1.4 Calcium 8.8 Magnesium 2.1 Total Bilirubin 1.8 H Direct Bilirubin AST 118 H ALT 55 H Alkaline Phosphatase 96 Ammonia 29 Total Creatine Kinase 1792 H Troponin I High Sens 16.8 B-Natriuretic Peptide Total Protein 6.2 L Albumin 3.7 Lipase 5 L PSA Screen TSH 2.95 Urine Color DK YELLOW Urine Appearance Cloudy Urine pH 6.0 Ur Specific [place] >= 1.030 H Urine Protein 300 (3+) H Urine Glucose (UA) Negative Urine Ketones >=80 Urine Blood Large (3+) H Urine Nitrite Negative Ur Leukocyte Esterase Small (1+) H Urine RBC >20 H Urine WBC >50 H Ur Squamous Epith Cells 3-5 Urine Bacteria None Seen Hyaline Casts 0-2 Urine Yeast Present Ethyl Alcohol 10 Influenza Type A (PCR) NEGATIVE Influenza Type B (PCR) NEGATIVE RSV RNA Qual (PCR) NEGATIVE SARS-CoV-2 RNA (RT-PCR) NEGATIVE 04/03/25 04/04/25 04/05/25 06:12 06:51 06:32 WBC 8.8 5.7 RBC 4.36 L 4.22 L Hgb 11.9 L 11.6 L Hct 35.9 L 35.0 L MCV 82.3 82.9 MCH 27.3 27.5 MCHC 33.1 33.1 RDW 14.9 15.0 Plt Count 180 173 MPV 9.5 9.8 Immature Gran % (Auto) 0.5 H Neut % (Auto) 76.3 H Lymph % (Auto) 8.5 L [place] % (Auto) 9.8 Eos % (Auto) 4.3 H Baso % (Auto) 0.6 Lymph # (Auto) 0.8 L [place] # (Auto) 0.9 Eos # (Auto) 0.4 Baso # (Auto) 0.1 Abs Immat Gran (auto) 0.04 H Absolute Neuts (auto) 6.7 Absolute Nucleated RBC 0.000 0.000 Nucleated RBC % (auto) 0.0 0.0 Hold Purple Top SEE NOTE PT 13.7 H INR 1.2 H D-Dimer High Sensitivty Sodium 139 141 143 Potassium 3.6 3.8 3.8 Chloride 109 H 108 109 H Carbon Dioxide 24 26 26 Anion Gap 10 L 11 L 12 BUN 23 H 19 H 14 Creatinine 0.75 0.81 0.84 Estim Creat Clear Calc 103.0 95.3 91.9 Estimated GFR > 60 > 60 > 60 POC Glucose Random Glucose 109 116 H 117 H Lactic Acid Calcium 8.2 L D 8.4 8.4 Magnesium 1.7 Total Bilirubin 1.1 H 0.6 Direct Bilirubin 0.3 AST 99 H 63 H ALT 57 H 65 H Alkaline Phosphatase 73 88 Ammonia Total Creatine Kinase 1324 H 806 H Troponin I High Sens B-Natriuretic Peptide 346 H Total Protein 5.2 L 5.5 L Albumin 3.0 L 3.0 L Lipase PSA Screen 22.15 H TSH Urine Color Urine Appearance Urine pH Ur Specific [place] Urine Protein Urine Glucose (UA) Urine Ketones Urine Blood Urine Nitrite Ur Leukocyte Esterase Urine RBC Urine WBC Ur Squamous Epith Cells Urine Bacteria Hyaline Casts Urine Yeast Ethyl Alcohol Influenza Type A (PCR) Influenza Type B (PCR) RSV RNA Qual (PCR) SARS-CoV-2 RNA (RT-PCR) 04/06/25 04/06/25 04/08/25 06:12 16:08 06:58 WBC 8.8 RBC 3.85 L Hgb 10.6 L Hct 32.2 L MCV 83.6 MCH 27.5 MCHC 32.9 RDW 15.2 Plt Count 176 MPV 10.1 Immature Gran % (Auto) Neut % (Auto) Lymph % (Auto) [place] % (Auto) Eos % (Auto) Baso % (Auto) Lymph # (Auto) [place] # (Auto) Eos # (Auto) Baso # (Auto) Abs Immat Gran (auto) Absolute Neuts (auto) Absolute Nucleated RBC 0.000 Nucleated RBC % (auto) 0.0 Hold Purple Top SEE NOTE PT INR D-Dimer High Sensitivty 738 Sodium 138 Potassium 3.7 Chloride 103 Carbon Dioxide 28 Anion Gap 11 L BUN 18 H Creatinine 1.01 Estim Creat Clear Calc 76.4 Estimated GFR > 60 POC Glucose 115 Random Glucose 141 H Lactic Acid Calcium 8.7 Magnesium Total Bilirubin 0.3 Direct Bilirubin 0.2 AST 25 ALT 37 Alkaline Phosphatase 96 Ammonia Total Creatine Kinase 63 Troponin I High Sens B-Natriuretic Peptide Total Protein 5.3 L Albumin 2.9 L Lipase PSA Screen TSH Urine Color Urine Appearance Urine pH Ur Specific [place] Urine Protein Urine Glucose (UA) Urine Ketones Urine Blood Urine Nitrite Ur Leukocyte Esterase Urine RBC Urine WBC Ur Squamous Epith Cells Urine Bacteria Hyaline Casts Urine Yeast Ethyl Alcohol Influenza Type A (PCR) Influenza Type B (PCR) RSV RNA Qual (PCR) SARS-CoV-2 RNA (RT-PCR) Airway Mallampati Class: II TM Dist: >3cm Neck ROM: Full Loose/Missing/Broken Teeth: No (patient denies any loose or broken teeth) Heart: S1S2 Lungs: CTAB Assessment and Plan Assessment Anesthesia Assessment: Anesthesia Plan Discussed and Chart Reviewed Final Anesthetic Review Family History of Problems with Anesthesia: No History of Problems with Anesthesia: No NPO: Yes ASA Class: III Final Preanesthetic Review: No Changes in Pt Med Stat, Meds/Allgs Chart Reviewed, Consent Obtained/Reviewed and Anes Risks/Benef Reviewed Patient Risk: Low Procedure Risk: Low Anesthetic Plan Anesthetic Plan: GA and Agree w/ Assess. and Plan Disposition: Standard PACU
--- NOTE | 2025-04-09 08:12 | MHC.SHP ---
Pre-Procedural Eval Section A - 24 Hr Update-Section A only Date of Service: 04/09/25 The patient is an INPATIENT: Yes Changes since office visit: No Cold of Flu in the past 2 weeks, No New Medical Problems, No Changes in Medication and No Patient answered all questions The patient has been examined within 24 hours of the surgical procedure. The History & Physical has been completed within 30 days and I have reviewed it.: Yes Section B - Complete if H&P > 30 days Chief Complaint: Suncope fall Details of Present Illness: Completion laser bladder stones Relevant Family History (Specify if Yes): No Relevant Social History: None Present Medications: see Short Stay Collaborative assessment Medical History: Significant History History of Previous Operations: Relevant previous surgery/procedure and date(s) Allergies: Allergies Allergy/AdvReac Type Severity Reaction Status Date / Time amlodipine AdvReac Intermediate Swelling Uncoded 04/06/25 15:59 Review of Systems Sugical H&P ROS: Negative: Constitution, Cardiovascular, Respiratory, Neurological, Psychiatric, Hem-Onc, Allergic/Immunologic, Gastrointestinal, Genitourinary, Musculoskeletal, Integumentary, Endocrine and Eyes/Ears/Nose/Throat Exam Surgical H&P Exam: Normal: HEENT, Normal: Heart, Normal: Lungs, Normal: Extremities, Normal: Abdomen, Normal: Skin and Normal: Neurological Plan Diagnosis/Plan: Unchanged I have reviewed the history and physical and performed a pertinent physical examination on my patient. No changes have occurred unless specified. Time Spent With Patient Time: Total time managing care of this patient today ____ minutes.
--- NOTE | 2025-04-09 09:28 | P.PNIM_ITS ---
Subjective Subjective Date of Service: 04/09/25 Interval History: hematuria improved Physical Exam 2 Vital Signs: Vital Signs: Last Vital Signs Temp 98.3 F 04/09/25 07:55 Pulse 74 04/09/25 07:55 Resp 18 04/09/25 07:55 BP 156/90 H 04/09/25 07:55 Pulse Ox 95 04/09/25 07:55 O2 Del Method Room Air 04/09/25 07:55 O2 Flow Rate 2 04/06/25 19:42 BMI result Body Mass Index 37.3 Const: General: cooperative, healthy appearing, comfortable and no acute distress Orientation/consciousness: patient oriented x3 HEENT: Face and sinus: Yes normal facial exam Mouth: moist mucous membranes Neck: Neck: Yes normal visual inspection, Yes full ROM and Yes trachea midline Chest: Chest palpation & inspection: normal inspection of the chest Resp: Effort & Inspection: normal respiratory effort, able to speak in complete sentences and no respiratory distress GI: Inspection: Yes normal to inspection Back/Spine/Pelvis: Cervical Spine: normal cervical lordosis Thoracic/Lumbar Spine: thoracic and lumbar spine normal to inspection Skin: General skin exam: no rashes or lesions noted Neuro: General: patient oriented x3, tone normal and moves all extremities Extrem: General: Yes normal to inspection and Yes capillary refill normal Objective Data Active Medications Acetaminophen (Acetaminophen 325 Mg Tablet) 650 mg PO Q6H PRN PRN Reason: Pain, Mild 1-3,fever,headache Last Admin: 04/08/25 16:53 Dose: 650 mg Documented By: RENETTA Bisacodyl (Bisacodyl 10 Mg Supp.Rect) 10 mg VT ONCE PRN PRN Reason: Constipation Last Admin: 04/07/25 19:23 Dose: 10 mg Documented By: NATHANIEL Calcium Carbonate (Calcium Carbonate 750 Mg Tab.Chew) 750 mg PO Q4H PRN PRN Reason: Heartburn Ceftriaxone Sodium (Ceftriaxone Sodium 1 Gm Vial) 1 gm IVPUSH Q12H [facility] Last Admin: 04/08/25 23:51 Dose: 1 gm Documented By: AMRIT Doxazosin Mesylate (Doxazosin Mesylate 2 Mg Tablet) 16 mg PO DAILY [facility]; Protocol Last Admin: 04/08/25 09:09 Dose: 16 mg Documented By: RENETTA Enoxaparin Sodium (Enoxaparin Sodium 40 Mg/0.4 Ml Syringe) 40 mg SUBCUT Q24H [facility] Last Admin: 04/08/25 09:07 Dose: 40 mg Documented By: RENETTA Haloperidol Lactate (Haloperidol Lactate 5 Mg/Ml Vial) 0.5 mg IVPUSH ONCE PRN PRN Reason: intractable nausea Stop: 04/09/25 14:03 Hydralazine HCl (Hydralazine Hcl 50 Mg Tablet) 50 mg PO TID [facility]; Protocol Last Admin: 04/08/25 21:22 Dose: 50 mg Documented By: AMRIT Hydrocortisone (Hydrocortisone 1 % Cream 28.35 Gm Tube) 1 appl TOPICAL BID PRN; Protocol PRN Reason: Itching Last Admin: 04/08/25 21:22 Dose: 1 appl Documented By: AMRIT Hydromorphone HCl (Hydromorphone Hcl 0.5 Mg/0.5 Ml Syringe) 0.5 mg IVPUSH Q5M PRN PRN Reason: Pain, Moderate to Severe (Pain Scale 4-10) Stop: 04/09/25 14:02 Ibuprofen (Ibuprofen 400 Mg Tablet) 400 mg PO Q6H PRN PRN Reason: Pain, Moderate(Pain Scale 4-6) Last Admin: 04/05/25 14:40 Dose: 400 mg Documented By: CHITRA Isosorbide Mononitrate (Isosorbide Mononitrate 30 Mg Tab.Er.24h) 30 mg PO DAILY [facility]; Protocol Last Admin: 04/08/25 09:08 Dose: 30 mg Documented By: RENETTA Lactic Acid (Ammonium Lactate 12 % Lotion 226 Gm Bottle) 1 appl TOPICAL DAILY PRN; Protocol PRN Reason: Dry Skin Lisinopril (Lisinopril 40 Mg Tablet) 40 mg PO DAILY [facility]; Protocol Last Admin: 04/08/25 09:08 Dose: 40 mg Documented By: RENETTA Magnesium Hydroxide (Milk Of Magnesia 30 Ml Oral.Susp) 30 ml PO DAILY PRN PRN Reason: Constipation Last Admin: 04/07/25 13:13 Dose: 30 ml Documented By: RENETTA Melatonin (Melatonin 3 Mg Tablet) 6 mg PO BEDTIME PRN PRN Reason: Insomnia Metoprolol Succinate (Metoprolol Succinate Er 25 Mg Tab.Er.24h) 25 mg PO DAILY [facility]; Protocol Last Admin: 04/08/25 09:08 Dose: 25 mg Documented By: RENETTA Multivitamins/Vitamin C (Multivitamin Tablet) 1 tab PO DAILY [facility] Last Admin: 04/08/25 09:09 Dose: 1 tab Documented By: RENETTA Naloxone HCl (Naloxone Hcl 0.4 Mg/Ml Vial) 0.04 mg IVPUSH Q5M PRN PRN Reason: Excessive sedation or RR < 8 Naloxone HCl (Naloxone Hcl 0.4 Mg/Ml Vial) 0.04 mg IVPUSH Q5M PRN PRN Reason: Excessive sedation or RR < 8 Ondansetron HCl (Ondansetron Hcl 4 Mg/2 Ml Vial) 4 mg IVPUSH Q8H PRN PRN Reason: Nausea and Vomiting Sodium Chloride (0.9 % Sodium Chloride Flush 3 Ml Syringe) 3 ml IVFLUSH QSHIFT [facility] Last Admin: 04/08/25 21:23 Dose: 3 ml Documented By: AMRIT Labs 04/08/25 06:58 04/08/25 06:58 Assessment and Plan (1) Heart failure: Status: Acute Plan 79M PMH pafib, hfpef, htn, bph, recurrent uti presented with syncope syncope, FTT ?cardiogenic vs neurogenic vs dehydration from recent diarrheal illness noted bradycardia on tele, improved, restarted toprol at 25mg daily neuro appreciated - likely dehydation, check eeg transaminitis resolved, mostly from rhabdo large bladder stone with recurrent UTIs urology appreciated - s/p laser 04/06/25, plan for repeat 04/09/25 pafib toprol not on AC - due to left atrial appendagectomy during bioavr surgery htn uncontrolled now better cotnrolled hydralazine 50mg tid lisinopril 40 toprol 25mg imdur 30 stopped amlodipine due to edema dvt prophylaxis - Lovenox full code reason for continued hospitalization:cysto 04/09/25 Quality Stroke Does the patient have a stroke diagnosis?: No VTE Prior VTE?: No VTE Risk Level:: Medical - moderate - high VTE Device Contraindication: N/A - Device Ordered VTE Drug Contraindication: Treatment Not Indicated
--- NOTE | 2025-04-09 10:00 | W.PM.OPN ---
Operative Note Operative Note Date of Service: 04/09/25 Narrative: PreOperative Diagnosis: Bladder Stone, Bladder Outlet Obstruction Post Operative Diagnosis: Bladder Stone, Bladder Outlet Obstruction Procedure: 1) Cystoscopy 2) Bladder Stone Laser - extensive multiple stones larger than 2.5cm - modifier 22 - 100% longer than typical - 90 min vs 45 min Surgeon: Dr Lowell Bellamy Anesthesia: LMA Indications for procedure: Recurrent UTI with hematuria. Admit with weakness. CT scan shows multiple 2.5 cm or greater stones within the bladder. Prior procedure 2 days ago with 3 stones removed. Two stones remained. Procedure: After informed consent was verified the patient was brought to the operating room and placed in a supine position. Anesthesia was administered per protocol. The patient was placed in modified dorsal lithotomy position and prepped and draped in a sterile fashion. Safety pause time-out was performed. Antibiotics being given. Cystoscopy was performed. Meatus dilated. Laser bridge resectoscope placed. No abnormality noted of anterior-posterior urethra. Large prostate. Prostate prior TURP and is open. Bladder entered. Using a 980nm holmium laser with bladder stones settings the stone was slowly broken into small pieces. The small pieces were irrigated from the bladder. This continued for approximately 90 min which is 100% longer than typical 45 minutes to break the stone. We were able to address all remaining stones. Upon completion the resectoscope was removed. A 22 Georgian three-way Morton catheter with 30 cc balloon was placed. This was done over a wire. The catheter was irrigated with clear irrigant. Clamp was placed tight in balloon against prostate. Will be released in recovery area. The patient tolerated the procedure well. They were extubated in operating room and transferred in stable conditions recovery area. Pathology: Bladder Stones Drains: Twenty-two Georgian three-way Morton catheter
[2025-04-09] MEDS: Metoprolol Succinate ER 25 MG TAB.ER.24H PO (10:57)
[2025-04-09] MEDS: cefTRIAXone sodium 1 GM VIAL IVPUSH ×2 (10:57→23:58)
[2025-04-09] MEDS: Enoxaparin Sodium 40 MG/0.4 ML SYRINGE SUBCUT (10:57)
[2025-04-09] MEDS: 0.9 % Sodium Chloride Flush 3 ML SYRINGE IVFLUSH ×3 (10:58→19:51)
[2025-04-09] MEDS: hydrALAZINE HCl 50 MG TABLET PO ×3 (10:58→19:56)
[2025-04-09] MEDS: Isosorbide Mononitrate 30 MG TAB.ER.24H PO (10:58)
[2025-04-09] MEDS: Doxazosin Mesylate 2 MG TABLET 16 MG PO (10:58)
[2025-04-09] MEDS: Multivitamin TABLET 1 TAB PO (10:58)
[2025-04-09] MEDS: lisinopriL 40 MG TABLET PO (10:58)
[2025-04-09] MEDS: Milk of Magnesia 30 ML ORAL.SUSP PO (11:05)
[2025-04-09] MEDS: Acetaminophen 325 MG TABLET 650 MG PO (19:49)
[2025-04-09] MEDS: Hydrocortisone 1 % Cream 28.35 GM TUBE 1 APPL TOPICAL (20:34)
[2025-04-10] VITALS (8 sets, daily range): BP systolic 110–170; BP diastolic 60–90; PULSE 54–81; RESP 16–18; TEMP 36.3–36.8; O2SAT 94–97
--- NOTE | 2025-04-10 | EEG_ITS ---
FINDINGS: The waking background activity consists of low-voltage fast frequencies seen diffusely intermixed with low-voltage 9 to 10 Hz posterior alpha frequency. Drowsiness is characterized by diffuse theta slowing. No sleep stages are identified. Photic stimulation is without activation. No focal, lateralizing, or paroxysmal discharges were seen. IMPRESSION: This awake and drowsy EEG is within normal limits. MD MARLENY Baez/ADELINE / [id number]
[2025-04-10 07:52] LABS: Hematocrit 33.9 % (42.0-52.0); Mean Corpuscular HGB Conc 32.4 g/dl (31.0-36.0); Mean Corpuscular Hemoglobin 27.3 pg (27.0-33.0); Mean Corpuscular Volume 84.1 fL (80.0-98.0); Mean Platelet Volume 9.7 fL (9.4-12.4); Platelet Count 179 X10*3/uL (160-400); Red Blood Count 4.03 X10*6/uL (4.60-5.80); Red Cell Distribution Width 15.3 % (11.0-16.0); White Blood Count 9.9 X10*3/uL (4.8-10.8)
[2025-04-10 08:07] LABS: Anion Gap 12 (12-20); Blood Urea Nitrogen 16 mg/dL (9-16); Calcium 8.6 mg/dL (8.4-10.2); Carbon Dioxide 27 mmol/L (22-29); Chloride 103 mmol/L (96-108); Creatinine Clr Calc Pharmacy 96.5; Estimated Glomerular Filt Rate > 60; Glucose Random 146 mg/dL (60-115); Potassium 4.1 mmol/L (3.3-5.1); Sodium 138 mmol/L (135-145)
[2025-04-10] MEDS: Isosorbide Mononitrate 30 MG TAB.ER.24H PO (09:14)
[2025-04-10] MEDS: 0.9 % Sodium Chloride Flush 3 ML SYRINGE IVFLUSH ×3 (09:14→20:24)
[2025-04-10] MEDS: hydrALAZINE HCl 50 MG TABLET PO ×3 (09:14→20:24)
[2025-04-10] MEDS: lisinopriL 40 MG TABLET PO (09:14)
[2025-04-10] MEDS: Enoxaparin Sodium 40 MG/0.4 ML SYRINGE SUBCUT (09:14)
[2025-04-10] MEDS: Metoprolol Succinate ER 25 MG TAB.ER.24H PO (09:14)
[2025-04-10] MEDS: Multivitamin TABLET 1 TAB PO (09:14)
--- NOTE | 2025-04-10 10:48 | HO.PM.IMPN ---
Subjective Subjective Date of Service: 04/10/25 Interval History: feeling better Physical Exam Vital Signs: Vital Signs: Last Vital Signs Temp 97.8 F 04/10/25 07:07 Pulse 60 04/10/25 08:19 Resp 17 04/10/25 07:07 BP 156/90 H 04/10/25 08:19 Pulse Ox 96 04/10/25 08:19 O2 Del Method Room Air 04/10/25 07:07 O2 Flow Rate 6 04/09/25 10:18 BMI result Body Mass Index 37.3 Const: General: cooperative, healthy appearing, comfortable and no acute distress Orientation/consciousness: patient oriented x3 HEENT: Face and sinus: Yes normal facial exam Mouth: moist mucous membranes Neck: Neck: Yes normal visual inspection, Yes full ROM and Yes trachea midline Chest: Chest palpation & inspection: normal inspection of the chest Resp: Effort & Inspection: normal respiratory effort, able to speak in complete sentences and no respiratory distress GI: Inspection: Yes normal to inspection Back/Spine/Pelvis: Cervical Spine: normal cervical lordosis Thoracic/Lumbar Spine: thoracic and lumbar spine normal to inspection Skin: General skin exam: no rashes or lesions noted Neuro: General: patient oriented x3, tone normal and moves all extremities Extrem: General: Yes normal to inspection and Yes capillary refill normal Objective Data Active Medications Acetaminophen (Acetaminophen 325 Mg Tablet) 650 mg PO Q6H PRN PRN Reason: Pain, Mild 1-3,fever,headache Last Admin: 04/09/25 19:49 Dose: 650 mg Documented By: JACKIE Bisacodyl (Bisacodyl 10 Mg Supp.Rect) 10 mg AR ONCE PRN PRN Reason: Constipation Last Admin: 04/07/25 19:23 Dose: 10 mg Documented By: NATHANIEL Calcium Carbonate (Calcium Carbonate 750 Mg Tab.Chew) 750 mg PO Q4H PRN PRN Reason: Heartburn Ceftriaxone Sodium (Ceftriaxone Sodium 1 Gm Vial) 1 gm IVPUSH Q12H [facility] Last Admin: 04/09/25 23:58 Dose: 1 gm Documented By: JACKIE Doxazosin Mesylate (Doxazosin Mesylate 2 Mg Tablet) 16 mg PO DAILY [facility]; Protocol Last Admin: 04/09/25 10:58 Dose: 16 mg Documented By: ODILIA Enoxaparin Sodium (Enoxaparin Sodium 40 Mg/0.4 Ml Syringe) 40 mg SUBCUT Q24H [facility] Last Admin: 04/10/25 09:14 Dose: 40 mg Documented By: ODILIA Hydralazine HCl (Hydralazine Hcl 50 Mg Tablet) 50 mg PO TID [facility]; Protocol Last Admin: 04/10/25 09:14 Dose: 50 mg Documented By: ODILIA Hydrocortisone (Hydrocortisone 1 % Cream 28.35 Gm Tube) 1 appl TOPICAL BID PRN; Protocol PRN Reason: Itching Last Admin: 04/09/25 20:34 Dose: 1 appl Documented By: JACKIE Ibuprofen (Ibuprofen 400 Mg Tablet) 400 mg PO Q6H PRN PRN Reason: Pain, Moderate(Pain Scale 4-6) Last Admin: 04/05/25 14:40 Dose: 400 mg Documented By: CHITRA Isosorbide Mononitrate (Isosorbide Mononitrate 30 Mg Tab.Er.24h) 30 mg PO DAILY [facility]; Protocol Last Admin: 04/10/25 09:14 Dose: 30 mg Documented By: ODILIA Lactic Acid (Ammonium Lactate 12 % Lotion 226 Gm Bottle) 1 appl TOPICAL DAILY PRN; Protocol PRN Reason: Dry Skin Lisinopril (Lisinopril 40 Mg Tablet) 40 mg PO DAILY [facility]; Protocol Last Admin: 04/10/25 09:14 Dose: 40 mg Documented By: ODILIA Magnesium Hydroxide (Milk Of Magnesia 30 Ml Oral.Susp) 30 ml PO DAILY PRN PRN Reason: Constipation Last Admin: 04/09/25 11:05 Dose: 30 ml Documented By: ODILIA Melatonin (Melatonin 3 Mg Tablet) 6 mg PO BEDTIME PRN PRN Reason: Insomnia Metoprolol Succinate (Metoprolol Succinate Er 25 Mg Tab.Er.24h) 25 mg PO DAILY [facility]; Protocol Last Admin: 04/10/25 09:14 Dose: 25 mg Documented By: ODILIA Multivitamins/Vitamin C (Multivitamin Tablet) 1 tab PO DAILY [facility] Last Admin: 04/10/25 09:14 Dose: 1 tab Documented By: ODILIA Naloxone HCl (Naloxone Hcl 0.4 Mg/Ml Vial) 0.04 mg IVPUSH Q5M PRN PRN Reason: Excessive sedation or RR < 8 Naloxone HCl (Naloxone Hcl 0.4 Mg/Ml Vial) 0.04 mg IVPUSH Q5M PRN PRN Reason: Excessive sedation or RR < 8 Ondansetron HCl (Ondansetron Hcl 4 Mg/2 Ml Vial) 4 mg IVPUSH Q8H PRN PRN Reason: Nausea and Vomiting Sodium Chloride (0.9 % Sodium Chloride Flush 3 Ml Syringe) 3 ml IVFLUSH QSHIFT [facility] Last Admin: 04/10/25 09:14 Dose: 3 ml Documented By: ODILIA Labs 04/10/25 06:25 04/10/25 06:24 Labs: Laboratory Results - last 24 hr 04/10/25 04/10/25 06:24 06:25 MCV 84.1 MCH 27.3 MCHC 32.4 RDW 15.3 Plt Count 179 MPV 9.7 Absolute Nucleated RBC 0.000 Nucleated RBC % (auto) 0.0 Anion Gap 12 Estim Creat Clear Calc 96.5 Estimated GFR > 60 Random Glucose 146 H Calcium 8.6 Assessment and Plan (1) Heart failure: Status: Acute Plan 79M PMH pafib, hfpef, htn, bph, recurrent uti presented with syncope syncope, FTT ?cardiogenic vs neurogenic vs dehydration from recent diarrheal illness noted bradycardia on tele, improved, restarted toprol at 25mg daily neuro appreciated - likely dehydation, follow up eeg plan for acute rehab transaminitis resolved, mostly from rhabdo large bladder stone with recurrent UTIs urology appreciated - s/p 2 stage laser 04/06/25, 04/09/25, now all stones removed voiding trial pafib toprol not on AC - due to left atrial appendagectomy during bioavr surgery htn uncontrolled now better cotnrolled hydralazine 50mg tid lisinopril 40 toprol 25mg imdur 30 stopped amlodipine due to edema dvt prophylaxis - Lovenox full code reason for continued hospitalization: dispo planning Quality Stroke Does the patient have a stroke diagnosis?: No VTE Prior VTE?: No VTE Risk Level:: Medical - moderate - high VTE Device Contraindication: N/A - Device Ordered VTE Drug Contraindication: Treatment Not Indicated
--- NOTE | 2025-04-10 10:55 | PM.DS ---
DS: Providers Provider Date of Service: 04/10/25 <Charly Andino MD - Last Filed: 04/10/25 10:59> 04/11/25 <Benito Corona MD - Last Filed: 04/11/25 09:44> Date of admission: 04/02/25 12:44 <Charly Andino MD - Last Filed: 04/10/25 10:59> Date of discharge: 04/10/25 <Charly Andino MD - Last Filed: 04/10/25 10:59> 04/11/25 <Benito Corona MD - Last Filed: 04/11/25 09:44> Primary care physician: None Physician <Charly Andino MD - Last Filed: 04/10/25 10:59> Consults: 04/02/25 17:55 Consult to Wound Care Routine Reason for consultation: evaluation and recommendation 04/04/25 10:45 Consult to Cardiology Routine Consulting Provider: [facility] Reason for consultation: syncope, macario Has provider been notified: Yes Consult to Neurology Routine Consulting Provider: [facility] Reason for consultation: syncope, doesnt remember, was on carbapenem 04/05/25 09:10 Consult to Urology Routine Consulting Provider: [facility] Reason for consultation: large bladder stone, frequent utis, discomfort <Charly Andino MD - Last Filed: 04/10/25 10:59> DS: Diagnosis Discharge Diagnosis (1) Heart failure: Status: Acute <Charly Andino MD - Last Filed: 04/10/25 10:59> DS: Summary Hospital Course Hospital Course: from initial hpi: 79-year-old male with past medical history of AFib, heart failure, arthritis, hypertension, BPH, recurrent UTIs presented to the ED after a syncopal episode. 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 He reports that prior to falling he had been on IV antibiotics for 10 days for a urinary tract infection. He reports that about 6 days into the antibiotics he experienced a loss of appetite and became more weak. He does not remember the events of the fall. On on exam he is alert and oriented appears fatigued. CT scan demonstrated no acute abnormalities, CT cervical spine with degenerative changes no evidence of fracture, his chest x-ray with no active pulmonary disease and small bilateral pleural effusions. Lactic acid 1.4. His CK was elevated 1792, Total Bili 1.8 AST/ALT 118/55. Urinalysis reveals 3+ blood, small Leuk esterase 300+ protein, spec gravity >1.030. Negative nitrates. He received 2 Liters LR in ED, Ceftriaxone 1 gram. hospital course: Patient was admitted for syncope and failure to thrive. Differential diagnosis on Etiology of syncope included cardiogenic versus neurogenic versus dehydration from recent diarrheal illness. Noted to have some bradycardia on telemetry though cardiology does not believe this was contributory to syncopal episode. Metoprolol was initially held but then restarted at half dose (25 mg daily). Bradycardia did not recur. Was seen by Neurology who felt this was likely due to dehydration recommended IV fluids, EEG was done and report should be followed up. Was seen by physical therapy who recommended acute rehab to which patient will be discharged, he is expected require less than 30 days. Also noted to have transaminitis on admission likely due to mild acute rhabdomyolysis, this resolved with IV fluids. Patient is symptoms likely contributed to by recurrent UTIs, cat scan revealed very large bladder stones. Was seen by Urology who performed 2 stage laser lithotripsy with extraction of all the stones. For paroxysmal atrial fibrillation continued on Toprol as mentioned, he is no longer on anticoagulation due to left atrial appendegectomy during bioprosthetic AVR surgery. For hypertension noted to be uncontrolled. Amlodipine was discontinued due to peripheral edema, metoprolol was decreased as mentioned. Hydralazine was increased to 50 mg t.i.d., continued on lisinopril 40 mg daily and started on Imdur 30 mg daily blood pressure then became better controlled. Patient is feeling better and will be discharged to acute rehab. Final diagnoes: syncope failure to thrive bladder stones hematuria Transaminitis paroxysmal afib difficult HTN <Charly Andino MD - Last Filed: 04/10/25 10:59> Time Attestation Discharge Coordination Time (in mins): 33 <Charly Andino MD - Last Filed: 04/10/25 10:59> Quality: Safe Use of Opioids Does Pt have an Active Cancer Diagnosis on the Problem List?: No <Charly Andino MD - Last Filed: 04/10/25 10:59> Quality: Stroke Does the patient have a stroke diagnosis?: No <Charly Andino MD - Last Filed: 04/10/25 10:59> Physical Exam Vital Signs: Vital Signs: Last Vital Signs Temp 97.8 F 04/10/25 07:07 Pulse 60 04/10/25 08:19 Resp 17 04/10/25 07:07 BP 156/90 H 04/10/25 08:19 Pulse Ox 96 04/10/25 08:19 O2 Del Method Room Air 04/10/25 07:07 O2 Flow Rate 6 04/09/25 10:18 BMI result Body Mass Index 37.3 <Charly Andino MD - Last Filed: 04/10/25 10:59> Vital Signs: Selected Entries 04/11/25 03:34 04/11/25 07:30 Temperature 97.0 F Pulse Rate 67 Respiratory Rate 18 Blood Pressure 162/88 H Pulse Oximetry 98 Oxygen Delivery Me thod Room Air <Benitoyuni Corona MD - Last Filed: 04/11/25 09:44> Const: General: cooperative, healthy appearing, comfortable and no acute distress <Charly Andino MD - Last Filed: 04/10/25 10:59> Orientation/consciousness: patient oriented x3 <Charly Andino MD - Last Filed: 04/10/25 10:59> HEENT: Face and sinus: Yes normal facial exam <Charly Andino MD - Last Filed: 04/10/25 10:59> Mouth: moist mucous membranes <Charly Andino MD - Last Filed: 04/10/25 10:59> Neck: Neck: Yes normal visual inspection, Yes full ROM and Yes trachea midline <Charly Andino MD - Last Filed: 04/10/25 10:59> Chest: Chest palpation & inspection: normal inspection of the chest <Charly Andino MD - Last Filed: 04/10/25 10:59> Resp: Effort & Inspection: normal respiratory effort, able to speak in complete sentences and no respiratory distress <Charly Andino MD - Last Filed: 04/10/25 10:59> GI: Inspection: Yes normal to inspection <Charly Andino MD - Last Filed: 04/10/25 10:59> Back/Spine/Pelvis: Cervical Spine: normal cervical lordosis <Charly Andino MD - Last Filed: 04/10/25 10:59> Thoracic/Lumbar Spine: thoracic and lumbar spine normal to inspection <Charly Andino MD - Last Filed: 04/10/25 10:59> Skin: General skin exam: no rashes or lesions noted <Charly Andino MD - Last Filed: 04/10/25 10:59> Neuro: General: patient oriented x3, tone normal and moves all extremities <Charly Andino MD - Last Filed: 04/10/25 10:59> Extrem: General: Yes normal to inspection and Yes capillary refill normal <Charly Andino MD - Last Filed: 04/10/25 10:59> DS: Data Data Completed and Pending Pending studies at discharge: Pending at discharge 04/06/25 19:08 Surgical [PTH] Routine 04/09/25 09:37 Surgical [PTH] Routine <Charly Andino MD - Last Filed: 04/10/25 10:59> Labs on day of discharge: Laboratory Results - last 24 hr 04/10/25 04/10/25 06:24 06:25 WBC 9.9 RBC 4.03 L Hgb 11.0 L Hct 33.9 L MCV 84.1 MCH 27.3 MCHC 32.4 RDW 15.3 Plt Count 179 MPV 9.7 Absolute Nucleated RBC 0.000 Nucleated RBC % (auto) 0.0 Sodium 138 Potassium 4.1 Chloride 103 Carbon Dioxide 27 Anion Gap 12 BUN 16 Creatinine 0.80 Estim Creat Clear Calc 96.5 Estimated GFR > 60 Random Glucose 146 H Calcium 8.6 <Charly Andino MD - Last Filed: 04/10/25 10:59> Discharge Plan Discharge Anticipated Discharge Date/Time: 04/11/25 08:28 <Charly Andino MD - Last Filed: 04/10/25 10:59> Patient Disposition: Xfer [facility] <Charly Andino MD - Last Filed: 04/10/25 10:59> Discharge Diagnosis: bladder stones, syncope, htn <Charly Andino MD - Last Filed: 04/10/25 10:59> bladder stones, syncope, htn <Benito Mlapah, MD - Last Filed: 04/11/25 09:44> Referrals: [facility] [Outside] - 1 Week Physician,None [Primary Care Provider] - 1 Week Kayley Mcnamara MD [Physician] - 1 Week <Charly Andino MD - Last Filed: 04/10/25 10:59> Discharge Medications: New multivitamin [Daily-Gerald] Tablet 1 tab PO DAILY Qty: 0 0RF isosorbide mononitrate 30 mg Tablet Extended Release 24 Hr 30 mg PO DAILY Qty: 0 0RF Protocol: Hold for SBP< HOLD for SBP < : 90 hydralazine 50 mg Tablet 50 mg PO TID Qty: 0 0RF Protocol: Hold for SBP< HOLD for SBP < : 90 metoprolol succinate 25 mg Tablet Extended Release 24 Hr 25 mg PO DAILY Qty: 0 0RF Protocol: Hold for SBP/HR < HOLD for SBP < : 90 HOLD for HR < : 60 Continued lisinopril 40 mg tablet 40 mg PO DAILY Qty: 90 0RF doxazosin 8 mg tablet 16 mg PO DAILY furosemide [Lasix] 40 mg tablet 40 mg PO Q48H ibuprofen [Advil] 200 mg tablet 400 mg PO Q8H PRN (Reason: Pain (Scale Score 1-3)) potassium chloride 20 mEq tablet extended release 20 meq PO Q48H Discontinued hydralazine 25 mg tablet 25 mg PO TID Qty: 270 2RF metoprolol succinate 50 mg tablet extended release 24 hr 50 mg PO DAILY Qty: 90 0RF amlodipine 5 mg tablet 5 mg PO DAILY <Charly Andino MD - Last Filed: 04/10/25 10:59> Discharge Orders: Discharge Order (Routine); Ordered 04/11/25 Ordered By: Benito Corona <Charyl Andino MD - Last Filed: 04/10/25 10:59> Diet: Advance to usual diet <Charly Andino MD - Last Filed: 04/10/25 10:59> Advance to usual diet <Benito Corona MD - Last Filed: 04/11/25 09:44> Activity on Discharge: As tolerated <Charly Andino MD - Last Filed: 04/10/25 10:59> As tolerated <Benito Corona MD - Last Filed: 04/11/25 09:44> Stand Alone Forms: Patient Portal Discharge page <Charly Andino MD - Last Filed: 04/10/25 10:59> Print Language: Turkmen <Charly Andino MD - Last Filed: 04/10/25 10:59> Activity Restrictions/Additional Instructions: Topical Wound Care Recommendations: Bilateral Lower Legs - Elevate lower legs on pillows throughout the day - when in recliner chair elevate lower legs. Cleanse with PH balance spray or wipes, pat dry. ?Apply layer of Medihoney to wound bed. ?Cover with ABD pad dressing, followed by gauze wrap and bisi wrap. Change every other day and PRN.? Medihoney available from wound nurse ? tube left at bedside for use. Recommend patient to consider Edema Wear outpt as not available inpatient.? These can be obtained from the following website. [email or web address]://[email or web address]/. Edema Wear Compression Stockings ? Edema Wear compression garments should be applied first thing in the morning and may be removed at night when legs are elevated in bed.? Hand wash and hang dry.? Stockings should be worn from the base of the toes to just below the knee.? Fold over at end to prevent rolling.? They are disposable after about 2 weeks or regular use. Recommend follow up out patient Wound Clinic at [address] [place] [address] and to call for an appointment at time of discharge. [phone].? <Charly Andino MD - Last Filed: 04/10/25 10:59> Care Plan Goals: avoid syncope, manage bp <Charly Andino MD - Last Filed: 04/10/25 10:59> Health Concerns: htn, syncope <Charly Andino MD - Last Filed: 04/10/25 10:59> Plan of Treatment: med changes as noted, follow up eeg, rehab <Charly Andino MD - Last Filed: 04/10/25 10:59> Assessment: see above <Charly Andino MD - Last Filed: 04/10/25 10:59>
--- NOTE | 2025-04-10 10:55 | MHC.CM.PN ---
Addendum entered by Kristy Lindsay 04/10/25 11:08: [facility] WILL need to obtain [employer] insurance auth again.CM will follow. Original Note: Per ROUNDS discussion, Patient is medically cleared for dc to SNF/STR today; CM awaits response from [facility] as to the status of previously obtained [employer] auth. CM will follow.
[2025-04-10] MEDS: Doxazosin Mesylate 2 MG TABLET 16 MG PO (11:06)
[2025-04-10] MEDS: cefTRIAXone sodium 1 GM VIAL IVPUSH (11:06)
[2025-04-10] MEDS: Acetaminophen 325 MG TABLET 650 MG PO (15:19)
[2025-04-10] MEDS: bisacodyL 10 MG SUPP.RECT PR (15:22)
[2025-04-10] MEDS: Ibuprofen 400 MG TABLET PO (15:32)
--- NOTE | 2025-04-10 16:15 | MHC.CM.PN ---
Patient is medically cleared for dc to SNF/[facility] . [facility] insurance auth and have requested that Patient arrive to them tomorrow morning. Patient will dc to [facility] tomorrow at 11 AM, [facility]. CM left a detailed message for HCP/Meghann @ [phone], informing her of the dc plan.
[2025-04-11] MEDS: cefTRIAXone sodium 1 GM VIAL IVPUSH (01:13)
[2025-04-11 03:34] VITALS: BP 157/87; PULSE 54; RESP 18; TEMP 36.7; O2SAT 94
[2025-04-11 07:30] VITALS: BP 162/88; PULSE 67; RESP 18; TEMP 36.1; O2SAT 98
[2025-04-11 07:53] VITALS: BP 162/88; PULSE 67
[2025-04-11] MEDS: Isosorbide Mononitrate 30 MG TAB.ER.24H PO (07:53)
[2025-04-11] MEDS: Metoprolol Succinate ER 25 MG TAB.ER.24H PO (07:53)
[2025-04-11] MEDS: hydrALAZINE HCl 50 MG TABLET PO (07:53)
[2025-04-11] MEDS: Doxazosin Mesylate 2 MG TABLET 16 MG PO (07:53)
[2025-04-11 07:54] VITALS: BP 162/88
[2025-04-11] MEDS: 0.9 % Sodium Chloride Flush 3 ML SYRINGE IVFLUSH (07:54)
[2025-04-11] MEDS: Multivitamin TABLET 1 TAB PO (07:54)
[2025-04-11] MEDS: Enoxaparin Sodium 40 MG/0.4 ML SYRINGE SUBCUT (07:54)
[2025-04-11] MEDS: lisinopriL 40 MG TABLET PO (07:54)
--- NOTE | 2025-04-11 08:40 | MHC.CM.PN ---
PT MEDICALLY CLEARED TO DC TO [facility] FOR BLS TRANSPORT AT 11AM.
[2025-04-11 10:48] VITALS: BP 138/70; PULSE 70; RESP 18; TEMP 36.4; O2SAT 96
== END 2025-04-11 11:00 | disposition skilled nursing facility (03) | DRG 465 ==
LOC: HO.ED 12:32 → HO.EDOVER 12:54 → HO.IMC 16:04
PROVIDERS: Internal Medicine; Urology; Admitting Provider Student in an Organized Health Care Education/Training Program; Emergency Provider Emergency Medicine; Visit Provider Internal Medicine
PROC: 0TCB8ZZ Extirpation of Matter from Bladder, Via Natural or Artificial Opening Endoscopic (ICD-10-PCS; CPT 52352; principal; 2025-04-06 16:30)
PROC: 0TFB8ZZ Fragmentation in Bladder, Via Natural or Artificial Opening Endoscopic (ICD-10-PCS; principal; 2025-04-09 08:00)
DX: N21.0 Calculus in bladder (principal); M62.82 Rhabdomyolysis; I48.19 Other persistent atrial fibrillation; N13.8 Other obstructive and reflux uropathy; R62.7 Adult failure to thrive; I50.32 Chronic diastolic (congestive) heart failure; I11.0 Hypertensive heart disease with heart failure; W19.XXXA Unspecified fall, initial encounter; M54.16 Radiculopathy, lumbar region; M21.372 Foot drop, left foot; Z68.37 Body mass index [BMI] 37.0-37.9, adult; I35.0 Nonrheumatic aortic (valve) stenosis; R31.9 Hematuria, unspecified; N40.1 Benign prostatic hyperplasia with lower urinary tract symptoms; Z95.2 Presence of prosthetic heart valve; Z20.822 Contact with and (suspected) exposure to COVID-19; Z87.440 Personal history of urinary (tract) infections; Z79.899 Other long term (current) drug therapy
CPT/HCPCS: 0241U; 36415; 70450; 71046; 72125; 74176; 76705; 80048; 80053; 80076; 80307; 81001; 82140; 82550; 82947; 83605; 83690; 83735; 83880; 84153; 84443; 84484; 85025; 85027; 85379; 85610; 87040; 87086; 88300; 93005; 93306; 93970; 95816; 97116; 97162; 97166; 97530; 99285; A4338; C1769; J0131; J0696; J1100; J1650; J2003; J2250; J2270; J2405; J2704; J3010; J7120; Q9957

== ENCOUNTER → 2025-04-02 11:18 | Outpatient (BNV) | payer BC, SELFPAY | PROVIDERS: Admitting Provider Student in an Organized Health Care Education/Training Program; Emergency Provider Emergency Medicine; Visit Provider Internal Medicine Cardiovascular Disease | DX: I48.91 Unspecified atrial fibrillation (principal) | CPT/HCPCS: 93010 ==

== ENCOUNTER → 2025-04-02 11:18 | Outpatient (BNV) | payer BC, SELFPAY | PROVIDERS: Emergency Provider Emergency Medicine; Visit Provider Radiology Diagnostic Radiology | DX: M54.2 Cervicalgia (principal); S09.90XA Unspecified injury of head, initial encounter; R10.811 Right upper quadrant abdominal tenderness; R53.1 Weakness | CPT/HCPCS: 70450; 71046; 72125; 76705 ==

== ENCOUNTER 2025-04-02 12:44 | Outpatient (BNV) | payer BC, SELFPAY | END 2025-04-04 14:53 | PROVIDERS: Admitting Provider Student in an Organized Health Care Education/Training Program; Emergency Provider Emergency Medicine; Visit Provider Radiology Diagnostic Radiology | DX: R10.9 Unspecified abdominal pain (principal) | CPT/HCPCS: 74176 ==

== ENCOUNTER 2025-04-02 12:44 | Outpatient (BNV) | payer BC, SELFPAY | END 2025-04-04 13:00 | PROVIDERS: Admitting Provider Student in an Organized Health Care Education/Training Program; Emergency Provider Emergency Medicine; Visit Provider Internal Medicine Cardiovascular Disease | DX: I51.7 Cardiomegaly (principal); I27.20 Pulmonary hypertension, unspecified; I34.81 Nonrheumatic mitral (valve) annulus calcification; Z95.3 Presence of xenogenic heart valve | CPT/HCPCS: 93306 ==

== ENCOUNTER 2025-04-02 12:44 | Outpatient (BNV) | payer BC, SELFPAY | END 2025-04-06 11:00 | PROVIDERS: Admitting Provider Student in an Organized Health Care Education/Training Program; Emergency Provider Emergency Medicine; Visit Provider Radiology Diagnostic Radiology | DX: R60.0 Localized edema (principal) | CPT/HCPCS: 93970 ==

== ENCOUNTER → 2025-04-02 12:44 | Outpatient (BNV) | payer BC, SELFPAY | PROVIDERS: Admitting Provider Student in an Organized Health Care Education/Training Program; Emergency Provider Emergency Medicine; Visit Provider Urology | DX: N21.0 Calculus in bladder (principal) | CPT/HCPCS: 99254 ==

== ENCOUNTER → 2025-04-02 12:44 | Outpatient (BNV) | payer BC, SELFPAY | PROVIDERS: Admitting Provider Student in an Organized Health Care Education/Training Program; Emergency Provider Emergency Medicine; Visit Provider Psychiatry & Neurology Neurology | DX: R55 Syncope and collapse (principal); M54.16 Radiculopathy, lumbar region | CPT/HCPCS: 99232 ==

== ENCOUNTER → 2025-04-02 12:44 | Outpatient (BNV) | payer BC, SELFPAY | PROVIDERS: Admitting Provider Student in an Organized Health Care Education/Training Program; Emergency Provider Emergency Medicine; Visit Provider Internal Medicine Cardiovascular Disease | DX: I48.19 Other persistent atrial fibrillation (principal); R00.1 Bradycardia, unspecified | CPT/HCPCS: 99232; 99254 ==

== ENCOUNTER → 2025-04-02 12:44 | Outpatient (BNV) | payer BC, SELFPAY | PROVIDERS: Admitting Provider Student in an Organized Health Care Education/Training Program; Emergency Provider Emergency Medicine; Visit Provider Student in an Organized Health Care Education/Training Program | DX: I50.9 Heart failure, unspecified (principal) | CPT/HCPCS: 99232; 99239 ==

== ENCOUNTER 2025-06-16 07:35 | Outpatient (REF) | payer BC, SELFPAY ==
[2025-06-16 09:26] LABS: Prostate Specific Antigen 6.52 ng/mL (<0.05-4.0)
== END 2025-06-16 07:36 | disposition home or self-care (01) ==
LOC: HO.LAB 07:35
PROVIDERS: Visit Provider Urology
DX: N40.1 Benign prostatic hyperplasia with lower urinary tract symptoms (principal); R33.8 Other retention of urine
CPT/HCPCS: 36415; 84153

== ENCOUNTER 2025-06-19 11:15 | Outpatient (AMB) | payer BC, SELFPAY ==
--- NOTE | 2025-06-19 11:27 | MHC.OFFVIS ---
Intake Visit Reasons: 6m/UA Intake Note: Patient is present for 6 mo follow up Urology Medication:Doxazosin,POTASSIUM CHLORIDE Antibiotic Allergy:SULFA Blood Thinner:RIVAROXABAN PVR :118 mls PSA done 06/16/2025 :6.52 Director Of Vendor Management Required: No Accompanied by: Self / Same As Patient Allergies amlodipine Adverse Reaction (Intermediate, Uncoded 04/06/25 15:59) Swelling HPI Comments Details: Tuan is a pleasant male. He is a patient of Dr. Florence. He is seen for the following urologic condition - urinary retention with BPH - elevated PSA - recurrent UTI - bladder stones PSA 07/09 6.5 UA today normal Significant drop in PSA States adequate urinary performance Six-month follow-up repeat PSA and bladder ultrasound to review for bladder stone formation Bladder stone Procedure 04/08 Recurrent UTI Urine culture Staphylococcus resistant to fluoroquinolones and Bactrim Respond to 2 weeks Augmentin Previously treated finasteride for elevated PSA Last HbA1c 6.5 Lower urinary tract symptoms Had required catheterization in hospital for retention June 2021 Describes history of weakness of stream going on for an extended time frame prior to episode of retention Current medications - finasteride PSA - previously up as high as - 03/06 9.9, 08/06 12.7 01/07 4.9 [facility] prostatectomy November 2021 - pathology chronic inflammation Therapeutic plan -6 month follow-up PSA [facility] Medical History (Updated 06/19/25 @ 11:52 by Lowell Bellamy MD) History of cardioversion AAA (abdominal aortic aneurysm) Persistent atrial fibrillation Diabetes HTN (hypertension) Urinary retention BPH (benign prostatic hyperplasia) Surgical History (Updated 04/06/25 @ 16:20 by Maki Robles RN) Hx of tonsillectomy H/O heart surgery History of prostate surgery Hx of aortic valve replacement Family History Mother Heart disease HTN (hypertension) Diabetes Father HTN (hypertension) Diabetes Social History Household Members: None Housing: House Are you a primary health careers instructor to a significant other at home: No Do you presently have visiting nurse or other home services: No Alcohol intake: never Patient Tobacco Use Status: Never used Tobacco Advance Directives Date on File: 04/02/25 service: No Review of Systems Const Denies chills and Denies fever(s) Card Reports no additional complaints and Denies syncope Resp Denies cough GI Denies abdominal pain and Denies heartburn Reports as per HPI and Denies change in libido Neuro Denies syncope Psych Denies change in libido Endo Denies change in libido Physical Exam Const General: cooperative, healthy appearing, comfortable and no acute distress Orientation/consciousness: patient oriented x3 HEENT Face and sinus: Yes normal facial exam Mouth: moist mucous membranes Neck Neck: Yes normal visual inspection, Yes full ROM and Yes trachea midline Chest Chest palpation & inspection: normal inspection of the chest Resp Effort & Inspection: normal respiratory effort, able to speak in complete sentences and no respiratory distress GI Inspection: Yes normal to inspection Back/Spine/Pelvis Cervical Spine: normal cervical lordosis Thoracic/Lumbar Spine: thoracic and lumbar spine normal to inspection Skin General skin exam: no rashes or lesions noted Neuro General: patient oriented x3, gait normal, tone normal and moves all extremities Extrem General: Yes normal to inspection and Yes capillary refill normal Assessment & Plan Assessment & Plan (1) BPH (benign prostatic hyperplasia): Code(s): N40.0 - Benign prostatic hyperplasia without lower urinary tract symptoms Category: Medical Qualifiers: Lower urinary tract symptom detail: urinary retention Lower urinary tract symptom presence: symptoms present Qualified Code(s): N40.1 - Benign prostatic hyperplasia with lower urinary tract symptoms; R33.8 - Other retention of urine (2) Bladder stones: Code(s): N21.0 - Calculus in bladder Category: Medical Plan Six-month follow-up bladder ultrasound Orders: Orders US bladder 6 Months N21.0 - Calculus in bladder Patient Instructions: This note is constructed using voice recognition software. While every effort has been made to ensure accuracy director of employer services errors may have been included. Imaging studies, laboratory and physical exam results were discussed and reviewed in detail. No major barriers to patient understanding were identified. An opportunity to ask questions regarding the treatment plan was provided. All questions were answered. The patient expressed understanding and agreement with the above treatment plan. The patient is aware they should contact our office by phone for worsening of their current condition or the appearance of new urologic symptoms. Compliance is encouraged with any medications and followup testing that is ordered. It is a privilege to participate in the urologic care of your patient. If you have any questions or concerns regarding treatment for the above conditions, or other urologic issues, please do not hesitate to contact me. The office telephone contact is [phone]. Sincerely, Dr Lowell Bellamy MD, [facility] - Urology Compassionate Specialist Care for the Genitourinary System Coding Level of Care Code Est Pt Level 3 (85004) Complex EM visit Add On G2211 Diagnoses BPH (benign prostatic hyperplasia) N40.1; R33.8 Lower urinary tract symptom detail: urinary retention Lower urinary tract symptom presence: symptoms present Bladder stones N21.0
--- OUTSIDE RECORDS SUMMARY | 2025-06-19 12:00 | XMS_ITS | Encounter Summary ---
Author Organization [facility] Address [address] [place] [address] Care Team Providers Care Surgery Teacher Name Role Phone Yung Rausch MD Primary Care Provider [phone] Encounter Details Date Type Department Care Team (Late st Contact Info) Description 04/13/2025 Lab Requisition [facility] - Main Lab [address] [facility] [place] [address] Yung Rausch MD [address] [place] [address] Adult failure to thrive; Chronic kidney disease, unspecified; Elevation of levels of liver transaminase levels; Vitamin D deficiency, unspecified Social History Tobacco Use Types Packs/Day Years Used Date Smoking Tobacco: Never Assessed Sex and Gender Information Value Date Recorded Sex Assigned at Not on file Legal Sex Male 9:37 PM EST Gender Identity Not on file Sexual Orientation Not on file documented as of this encounter Plan of Treatment Not on file documented as of this encounter Procedures Procedure Name Priority Date/Time Associated Diagnosis Comments VITAMIN D 25 HYDROXY Routine 04/13/2025 6:37 AM EDT Adult failure to thrive Chronic kidney disease, unspecified Elevation of levels of liver transaminase levels Vitamin D deficiency, unspecified COMPLETE BLOOD COUNT Routine 04/13/2025 6:37 AM EDT Adult failure to thrive Chronic kidney disease, unspecified Elevation of levels of liver transaminase levels Vitamin D deficiency, unspecified FOLATE Routine 04/13/2025 6:37 AM EDT Adult failure to thrive Chronic kidney disease, unspecified Elevation of levels of liver transaminase levels Vitamin D deficiency, unspecified VITAMIN B12 Routine 04/13/2025 6:37 AM EDT Adult failure to thrive Chronic kidney disease, unspecified Elevation of levels of liver transaminase levels Vitamin D deficiency, unspecified COMPREHENSIVE METABOLIC PANEL Routine 04/13/2025 6:37 AM EDT Adult failure to thrive Chronic kidney disease, unspecified Elevation of levels of liver transaminase levels Vitamin D deficiency, unspecified documented in this encounter Results * (ABNORMAL) Folate (04/13/2025 6:37 AM EDT) [facility] Folate 17.1(H) 2.8 - 17.0 ng/ml LAB CHEMISTRY METHOD 04/13/2025 11:05 AM EDT [facility] Blood Venous blood specimen / Unknown Venipuncture / Unknown 04/13/2025 6:37 AM EDT 04/13/2025 9:14 AM EDT us Yung Rausch MD LAB BLOOD ORDERABLES Final Resul t Performing Organization Address City/[facility]/ZIP Co de Phone Number [facility] [address] [place] [address], [place] [phone] * Vitamin D 25 hydroxy (04/13/2025 6:37 AM EDT) [facility] Vit D, 25-Hydroxy 55.7 30.0 - 80.0 ng/mL LAB CHEMISTRY METHOD 04/13/2025 11:35 AM EDT [facility] Blood Venous blood specimen / Unknown Venipuncture / Unknown 04/13/2025 6:37 AM EDT 04/13/2025 9:14 AM EDT us Yung Rausch MD LAB BLOOD ORDERABLES Final Resul t [facility] [address] [place] [address], [place] [phone] * Vitamin B12 (04/13/2025 6:37 AM EDT) [facility] Vitamin B-12 771 250 - 900 pcg/mL LAB CHEMISTRY METHOD 04/13/2025 11:05 AM [facility] Blood Venous blood specimen / Unknown Venipuncture / Unknown 04/13/2025 6:37 AM EDT 04/13/2025 9:14 AM EDT us Yung Rausch MD LAB BLOOD ORDERABLES Final Resul t [facility] [address] [place] [address], [place] [phone] * (ABNORMAL) Comprehensive metabolic panel (04/13/2025 6:37 AM EDT) [facility] Sodium 138 133 - 145 mmol/L LAB CHEMISTRY METHOD 04/13/2025 10:41 AM [facility] Potassium 3.8 3.5 - 5.5 mmol/L LAB CHEMISTRY METHOD 04/13/2025 10:41 AM [facility] Chloride 104 96 - 110 mmol/L LAB CHEMISTRY METHOD 04/13/2025 10:41 AM [facility] CO2 24 21 - 32 mmol/L LAB CHEMISTRY METHOD 04/13/2025 10:41 AM [facility] Anion Gap 10 3 - 11 LAB CHEMISTRY METHOD 04/13/2025 10:41 AM [facility] Glucose 116(H) 70 - 100 mg/dL LAB CHEMISTRY METHOD 04/13/2025 10:41 AM [facility] BUN 20 5 - 25 mg/dL LAB CHEMISTRY METHOD 04/13/2025 10:41 AM [facility] Creatinine 1.04 0.70 - 1.30 mg/dL LAB CHEMISTRY METHOD 04/13/2025 10:41 AM [facility] eGFR 74 >=60 mL/min/1. 73m2 LAB CHEMISTRY METHOD 04/13/2025 10:41 AM [facility] Comment:Calculation based on the Chronic Kidney Disease Epidemiology Collaboration (CKD-EPI) equation refit without adjustment for race. BUN/Creatinine Ratio 19.2 LAB CHEMISTRY METHOD 04/13/2025 10:41 AM [facility] Calcium 8.8 8.5 - 10.5 mg/dL LAB CHEMISTRY METHOD 04/13/2025 10:41 AM [facility] AST (SGOT) 19 10 - 42 unit/L LAB CHEMISTRY METHOD 04/13/2025 10:41 AM [facility] ALT (SGPT) 41 10 - 60 unit/L LAB CHEMISTRY METHOD 04/13/2025 10:41 AM [facility] Alkaline Phosphatase 124(H) 42 - 121 unit/L LAB CHEMISTRY METHOD 04/13/2025 10:41 AM [facility] Total Protein 6.2 6.0 - 8.0 g/dL LAB CHEMISTRY METHOD 04/13/2025 10:41 AM [facility] Albumin 3.2 3.2 - 5.0 g/dL LAB CHEMISTRY METHOD 04/13/2025 10:41 AM [facility] Total Bilirubin 0.7 0.0 - 1.4 mg/dL LAB CHEMISTRY METHOD 04/13/2025 10:41 AM [facility] Blood Venous blood specimen / Unknown Venipuncture / Unknown 04/13/2025 6:37 AM EDT 04/13/2025 9:14 AM EDT us Yung Rausch MD LAB BLOOD ORDERABLES Final Resul t [facility] [address] [place] [address], [place] [phone] * (ABNORMAL) Complete blood count (04/13/2025 6:37 AM EDT) WBC 7.8 4.8 - 10.8 K/mcL LAB HEMETOLOGY METHOD 04/13/2025 9:54 AM [facility] RBC 4.40(L) 4.50 - 5.50 M/mcL LAB HEMETOLOGY METHOD 04/13/2025 9:54 AM [facility] Hemoglobin 11.6(L) 13.5 - 17.5 g/dL LAB HEMETOLOGY METHOD 04/13/2025 9:54 AM [facility] Hematocrit 37.9(L) 42.0 - 54.0 % LAB HEMETOLOGY METHOD 04/13/2025 9:54 AM [facility] MCV 86.9 79.0 - 98.0 FL LAB HEMETOLOGY METHOD 04/13/2025 9:54 AM [facility] MCH 26.6(L) 27.0 - 32.0 pcg LAB HEMETOLOGY METHOD 04/13/2025 9:54 AM [facility] MCHC 30.6(L) 32.0 - 37.0 g/dL LAB HEMETOLOGY METHOD 04/13/2025 9:54 AM [facility] RDW 15.4(H) 11.0 - 15.0 % LAB HEMETOLOGY METHOD 04/13/2025 9:54 AM [facility] Platelets 229 130 - 400 K/[facility] LAB HEMETOLOGY METHOD 04/13/2025 9:54 AM [facility] MPV 10.3 7.0 - 11.0 FL LAB HEMETOLOGY METHOD 04/13/2025 9:54 AM [facility] NRBC 0.0 <1.0 % LAB HEMETOLOGY METHOD 04/13/2025 9:54 AM [facility] NRBC Absolute 0.00 <0.10 K/mcL LAB HEMETOLOGY METHOD 04/13/2025 9:54 AM EDT [facility] Blood Venous blood specimen / Unknown Venipuncture / Unknown 04/13/2025 6:37 AM EDT 04/13/2025 9:14 AM EDT Yung Rausch MD LAB BLOOD ORDERABLES Final Resul t [facility] [address] [place] [address], documented in this encounter Visit Diagnoses Diagnosis Adult failure to thrive Chronic kidney disease, unspecified Elevation of levels of liver transaminase levels Vitamin D deficiency, unspecified documented in this encounter Care Teams Surgery Teacher Relationship Specialty Start Date End Date Yung Rausch MD [address] [place] [address] [address] [place] [address] PCP - General Geriatric Medicine 04/13/25 documented as of this encounter
--- OUTSIDE RECORDS SUMMARY | 2025-06-19 12:00 | XMS_ITS | Encounter Summary ---
Author Organization [facility] Address [address] [place] [address] Phone Care Team Providers Care Ecologist Technician Name Role Phone Cristina Florence MD Primary Care Provider [phone] Cristina Florence MD Unavailable [phone] Encounter Details Date Type Department Care Team ([facility] Contact Info) Description 08/25/2024 Procedure Pass [facility] [address] [place] [address] Social History Tobacco Use Types Packs/Day Years Used Date Smoking Tobacco: Never Smokeless Tobacco: Never Alcohol Use Standard Drinks/Week Comments No 0 (1 standard drink = 0.6 oz pur e alcohol) Education Answer Date Recorded Are you interested in more education? Not on lillian e 03/12/2023 Are you concerned about learning? Not on file 03/12/2023 No 03/12/2023 No 03/12/2023 Digital Access Answer Date Recorded No 04/10/2023 No 04/10/2023 Reliable internet access at home? Not on file 04/10/2023 Device with a working camera? Not on file Sex and Gender Information Value Date Recorded Sex Assigned at Male 05/29/2018 2:00 PM EDT Legal Sex Male 10:06 PM EDT Gender Identity Male 05/29/2018 2:00 PM EDT Sexual Orientation Straight 05/29/2018 2: 00 PM EDT documented as of this encounter Plan of Treatment Upcoming Encounters Date Type Department Care Team ([facility] Contact Info) Description 11/12/2025 10:00 AM EST Office Visit [facility] [address], [address] [place] [address] Fallon Del Rosario DNP [address] [facility] [place], [address] [address] [email or web address] documented as of this encounter Visit Diagnoses Not on filedocumented in this encounter Care Teams Ecologist Technician Relationship Specialty Start Date End Date Cristina Florence MD [address] [place] [phone] [email or web address] PCP - General 11/18/17 Cristina Florence MD [address] [place] [phone] [email or web address] Insurance Assigned Provider 02/19/2405/15 documented as of this encounter Additional Source Comments The information contained in this document represents components of the legal health record. It is not the complete legal health record.[facility]
== END 2025-06-19 11:59 | disposition home or self-care (01) ==
LOC: HO.HUSH 11:16
PROVIDERS: PCP Internal Medicine; Visit Provider Urology
DX: R33.9 Retention of urine, unspecified (principal); N21.0 Calculus in bladder; N39.0 Urinary tract infection, site not specified; N40.1 Benign prostatic hyperplasia with lower urinary tract symptoms; R33.8 Other retention of urine; R97.20 Elevated prostate specific antigen [PSA]
CPT/HCPCS: 99213

== ENCOUNTER → 2025-06-19 11:15 | Outpatient (BNVA) | payer BC, SELFPAY | PROVIDERS: PCP Internal Medicine; Visit Provider Urology | DX: N40.1 Benign prostatic hyperplasia with lower urinary tract symptoms (principal) | CPT/HCPCS: 81003 ==

== ENCOUNTER 2025-07-03 09:17 | Outpatient (REF) | payer BC, SELFPAY ==
--- NOTE | ~2025-07-03 | XR_ITS ---
EXAMINATION: XR HAND, RIGHT CLINICAL INFORMATION: M79.641 - Pain in right hand COMPARISON: No prior. TECHNIQUE: PA, lateral, and oblique views of the right hand. FINDINGS: No fracture, dislocation, or suspicious bone lesion. There is normal alignment. No periarticular osteopenia or erosions evident. There are mild changes of osteoarthritis throughout the interphalangeal joints, with slightly more significant changes in the first CMC joint and STT joints. There is mild radiocarpal joint space narrowing , with degenerative changes in the DRUJ. There is negative ulnar variance. There is mild soft tissue swelling surrounding the PIP joint of the second digit. Soft tissues otherwise normal. XR/XR hand RT min 3V IMPRESSION: 1. No acute osseous abnormality. Mild degenerative arthritis as described. 2. Mild soft tissue swelling surrounding the PIP joint of the second digit. Electronically signed by: Mike Guadalupe MD 07/03/2025 10:29 AM EDT
--- OUTSIDE RECORDS SUMMARY | 2025-07-04 09:57 | XMS_ITS | Encounter Summary ---
Author Organization [facility] Address [address] [facility] [address] [place] [address] Phone Care Team Providers Care Coil Winder Hand Name Role Phone Cristina Florence MD Primary Care Provider Cristina Florence MD Unavailable [phone] Encounter Details Date Type Department Care Team ([facility] Contact Info) Description 08/25/2024 Procedure Pass [facility] [address] [place] [address] Social History Tobacco Use Types Packs/Day Years [...] Upcoming Encounters Date Type Department Care Team ([facility] Contact Info) Description 11/12/2025 10:00 AM EST Office Visit [facility] [address] [facility] 3[address], [address] [place] [address] Fallon Del Rosario DNP [address] [facility], [address] [address] [email or web address] documented as of this encounter Visit Diagnoses Not on filedocumented in this encounter Care Teams Coil Winder Hand Relationship Specialty Start Date End Date Cristina Florence MD [address] [place] [phone] [email or web address] PCP - General 11/18/17 Cristina Florence MD [address] [place] [phone] [email or web address] Insurance Assigned Provider 02/19/2405/15 documented as of this encounter Additional Source Comments The information contained in this document represents components of the legal health record. It is not the complete legal health record.[facility]
--- OUTSIDE RECORDS SUMMARY | 2025-07-04 09:57 | XMS_ITS | Encounter Summary ---
Author Organization [facility] Address [address] [place] [address] Care Team Providers Care Core Inserter Name Role Phone Yung Rausch MD Primary Care Provider [phone] Encounter Details Date Type Department Care Team (Late st Contact Info) Description 04/13/2025 Lab Requisition [facility] - Main Lab [address] [facility] [place] [address] Yung Rausch MD [address] [place] [address] Adult failure to thrive; Chronic kidney disease, [...] * (ABNORMAL) Folate (04/13/2025 6:37 AM EDT) [facility] Folate 17.1(H) 2.8 - 17.0 ng/ml LAB CHEMISTRY METHOD 04/13/2025 11:05 AM EDT [facility] Blood Venous blood specimen / Unknown Venipuncture / Unknown 04/13/2025 6:37 AM EDT 04/13/2025 9:14 AM EDT us Yung Rausch MD LAB BLOOD ORDERABLES Final Resul t Performing Organization Address City/[facility]/ZIP Co de Phone Number [facility] [address] [place] [address], [place] [phone] * Vitamin D 25 hydroxy (04/13/2025 6:37 AM EDT) [facility] Vit D, 25-Hydroxy 55.7 30.0 - 80.0 ng/mL LAB CHEMISTRY METHOD 04/13/2025 11:35 AM EDT [facility] Blood Venous blood specimen / Unknown Venipuncture / Unknown 04/13/2025 6:37 AM EDT 04/13/2025 9:14 AM EDT us Yung Rausch MD LAB BLOOD ORDERABLES Final Resul t [facility] [address] [place] [address], [place] [phone] * Vitamin B12 (04/13/2025 6:37 AM EDT) [facility] Vitamin B-12 771 250 - 900 pcg/mL LAB CHEMISTRY METHOD 04/13/2025 11:05 AM [facility] Blood Venous blood specimen / Unknown Venipuncture / Unknown 04/13/2025 6:37 AM EDT 04/13/2025 9:14 AM EDT us Yung Rausch MD LAB BLOOD ORDERABLES Final Resul t [facility] [address] [place] [address], [place] [phone] * (ABNORMAL) Comprehensive metabolic panel (04/13/2025 6:37 AM EDT) [facility] Sodium 138 133 - 145 mmol/L LAB CHEMISTRY METHOD 04/13/2025 10:41 AM [facility] Potassium 3.8 3.5 - 5.5 mmol/L LAB CHEMISTRY METHOD 04/13/2025 10:41 AM [facility] Chloride 104 96 - 110 mmol/L LAB CHEMISTRY METHOD 04/13/2025 10:41 AM [facility] CO2 24 21 - 32 mmol/L LAB CHEMISTRY METHOD 04/13/2025 10:41 AM [facility] Anion Gap 10 3 - 11 LAB CHEMISTRY METHOD 04/13/2025 10:41 AM [facility] Glucose 116(H) 70 - 100 mg/dL LAB CHEMISTRY METHOD 04/13/2025 10:41 AM [facility] BUN 20 5 - 25 mg/dL LAB CHEMISTRY METHOD 04/13/2025 10:41 AM [facility] Creatinine 1.04 0.70 - 1.30 mg/dL LAB CHEMISTRY METHOD 04/13/2025 10:41 AM [facility] eGFR 74 >=60 mL/min/1. 73m2 LAB CHEMISTRY METHOD 04/13/2025 10:41 AM [facility] Comment:Calculation based on the Chronic Kidney Disease Epidemiology Collaboration (CKD-EPI) equation refit without adjustment for race. BUN/Creatinine Ratio 19.2 LAB CHEMISTRY METHOD 04/13/2025 10:41 AM [facility] Calcium 8.8 8.5 - 10.5 mg/dL LAB CHEMISTRY METHOD 04/13/2025 10:41 AM [facility] AST (SGOT) 19 10 - 42 unit/L LAB CHEMISTRY METHOD 04/13/2025 10:41 AM [facility] ALT (SGPT) 41 10 - 60 unit/L LAB CHEMISTRY METHOD 04/13/2025 10:41 AM [facility] Alkaline Phosphatase 124(H) 42 - 121 unit/L LAB CHEMISTRY METHOD 04/13/2025 10:41 AM [facility] Total Protein 6.2 6.0 - 8.0 g/dL LAB CHEMISTRY METHOD 04/13/2025 10:41 AM [facility] Albumin 3.2 3.2 - 5.0 g/dL LAB CHEMISTRY METHOD 04/13/2025 10:41 AM [facility] Total Bilirubin 0.7 0.0 - 1.4 mg/dL LAB CHEMISTRY METHOD 04/13/2025 10:41 AM [facility] Blood Venous blood specimen / Unknown Venipuncture / Unknown 04/13/2025 6:37 AM EDT 04/13/2025 9:14 AM EDT us Yung Rausch MD LAB BLOOD ORDERABLES Final Resul t [facility] [address] [place] [address], [place] [phone] * (ABNORMAL) Complete blood count (04/13/2025 6:37 AM EDT) WBC 7.8 4.8 - 10.8 K/mcL LAB HEMETOLOGY METHOD 04/13/2025 9:54 AM [facility] RBC 4.40(L) 4.50 - 5.50 M/mcL LAB HEMETOLOGY METHOD 04/13/2025 9:54 AM [facility] Hemoglobin 11.6(L) 13.5 - 17.5 g/dL LAB HEMETOLOGY METHOD 04/13/2025 9:54 AM [facility] Hematocrit 37.9(L) 42.0 - 54.0 % LAB HEMETOLOGY METHOD 04/13/2025 9:54 AM [facility] MCV 86.9 79.0 - 98.0 FL LAB HEMETOLOGY METHOD 04/13/2025 9:54 AM [facility] MCH 26.6(L) 27.0 - 32.0 pcg LAB HEMETOLOGY METHOD 04/13/2025 9:54 AM [facility] MCHC 30.6(L) 32.0 - 37.0 g/dL LAB HEMETOLOGY METHOD 04/13/2025 9:54 AM [facility] RDW 15.4(H) 11.0 - 15.0 % LAB HEMETOLOGY METHOD 04/13/2025 9:54 AM [facility] Platelets 229 130 - 400 K/[facility] LAB HEMETOLOGY METHOD 04/13/2025 9:54 AM [facility] MPV 10.3 7.0 - 11.0 FL LAB HEMETOLOGY METHOD 04/13/2025 9:54 AM [facility] NRBC 0.0 <1.0 % LAB HEMETOLOGY METHOD 04/13/2025 9:54 AM [facility] NRBC Absolute 0.00 <0.10 K/mcL LAB HEMETOLOGY METHOD 04/13/2025 9:54 AM EDT [facility] LAB Blood Venous blood specimen / Unknown Venipuncture / Unknown 04/13/2025 6:37 AM EDT 04/13/2025 9:14 AM EDT Yung Rausch MD LAB BLOOD ORDERABLES Final Resul t [facility] [address] [place] [address], documented in this encounter Visit Diagnoses Diagnosis Adult failure to thrive Chronic kidney disease, unspecified Elevation of levels of liver transaminase levels Vitamin D deficiency, unspecified documented in this encounter Care Teams Core Inserter Relationship Specialty Start Date End Date Yung Rausch MD [address] [place] [address] [address] [place] [address] PCP - General Geriatric Medicine 04/13/25 documented as of this encounter
== END 2025-07-03 09:18 | disposition home or self-care (01) ==
LOC: HO.HOSX 09:17
PROVIDERS: Visit Provider Orthopaedic Surgery
DX: M20.021 Boutonniere deformity of right finger(s) (principal); M79.641 Pain in right hand
CPT/HCPCS: 73130

== ENCOUNTER 2025-07-03 10:05 | Outpatient (AMB) | payer BC, SELFPAY ==
--- NOTE | 2025-07-03 10:09 | MHC.OFFVIS ---
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 States his finger is esha inward towards his palm. States this causes him no pain. Patient recalls he he fell and hit his knuckle on the pavement and has had discomfort since. Denies numbness, tingling or locking of any finger. STartes he has not seen his PCP for this issue. 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 He has been wearing an OT finger splint, which he says gives him relief, and he believes has helped some.. He says he can make a fist without pain, feeling some tightness, but he is not able to fully extend his index finger or keep it extended. He denies any locking, catching, numbness, or tingling He did injured the finger, falling onto it a few months ago. He has drop foot and knee OA. He is seen in a wheelchair today . He is a retired chiropractor [facility] Medical History (Updated 07/03/25 @ 10:40 by Armani Pagan) History of cardioversion AAA (abdominal aortic aneurysm) Persistent atrial fibrillation Diabetes HTN (hypertension) Urinary retention BPH (benign prostatic hyperplasia) Surgical History (Updated 04/06/25 @ 16:20 by Maik Robles RN) Hx of tonsillectomy H/O heart surgery History of prostate surgery Hx of aortic valve replacement Family History Mother Heart disease HTN (hypertension) Diabetes Father HTN (hypertension) Diabetes Social History Household Members: None Housing: House Are you a primary patient centered care specialist to a significant other at home: No Do you presently have visiting nurse or other home services: No Alcohol intake: never Patient Tobacco Use Status: Never used Tobacco Advance Directives Date on File: 04/02/25 service: No Review of Systems Const All systems reviewed & are unremarkable except as noted in HPI and below Physical Exam Vital Signs: BMI result Body Mass Index 32.1 Const General: cooperative, healthy appearing and no acute distress Orientation/consciousness: patient oriented x3 HEENT Head: Yes normocephalic and Yes atraumatic Eyes EOM: EOMs intact bilaterally Resp Effort & Inspection: normal respiratory effort and able to speak in complete sentences Cardio Jugular venous distension: no JVD Skin General skin exam: turgor normal Rashes: no rashes Neuro General: patient oriented x3 Extrem Other: Evaluation of Right Upper Extremity: The patient is alert, oriented, and in no acute distress Neuro: Median, Ulnar, Radial nerves motor and sensory intact and sensation is normal to the tips of all digits Vascular: Cap refill brisk ROM: With encouragement he can make a fist and extend all his digits He can fully extend his index finger. However he has trouble holding it in extension. He has index finger weakness when holding it in extension against resistance Mild index finger PIP joint swelling No PIP joint tenderness Skin: No lacerations or abrasions. General: No Ecchymosis. No Erythema or evidence of infection. Radiographs: 3 views of the right hand were taken and viewed by me today in clinic. They show no fractures or dislocations and minimal arthritic changes. Psych Appearance: grossly normal Affect: normal affect Attitude: cooperative Assessment & Plan Assessment & Plan (1) Boutonniere deformity of finger of right hand: Code(s): M20.021 - Boutonniere deformity of right finger(s) Category: Medical Plan Assessment & Plan: 1. Right index finger early boutonniere deformity Secondary to PIP joint injury from a fall few months ago I educated him about this condition I discussed operative and non-operative treatment options I recommend OT hand therapy and custom splinting and he expressed understanding I ordered OT hand therapy to have him fitted for a custom thermoplastic splint, which allows for MCP & DIP joint ROM but will hold the PIP joint in extension, and to work on gentle ROM & normalizing function He should keep his finger splinted in extension the majority of the time He will follow up in 6 weeks to see how he is doing. Scribed for Manasa Mora MD by Armani Pagan, registered medical transcriptionist, on 07/03/25 at 10:25 AM, EST. Orders: Orders OT Evaluation and Treatment Today M20.021 - Boutonniere deformity of right finger(s) XR hand RT min 3V Today M79.641 - Pain in right hand Coding Level of Care Code New Pt Level 3 (79930) Diagnoses Boutonniere deformity of finger of right hand M20.021
[2025-07-03 10:20] VITALS: BMI 32.1
--- OUTSIDE RECORDS SUMMARY | 2025-07-03 11:18 | XMS_ITS | Encounter Summary ---
Author Organization [facility] Address [address] [place] [address] Care Team Providers Care Coper Hand Name Role Phone Yung Rausch MD Primary Care Provider [phone] Encounter Details Date Type Department Care Team (Late st Contact Info) Description 04/13/2025 Lab Requisition [facility] - Main Lab [address] [facility] [place] [address] Yung Rausch MD [address] [place] [address] Adult failure to thrive; Chronic kidney disease, [...] * (ABNORMAL) Folate (04/13/2025 6:37 AM EDT) [facility] Folate 17.1(H) 2.8 - 17.0 ng/ml LAB CHEMISTRY METHOD 04/13/2025 11:05 AM EDT [facility] Blood Venous blood specimen / Unknown Venipuncture / Unknown 04/13/2025 6:37 AM EDT 04/13/2025 9:14 AM EDT us Yung Rausch MD LAB BLOOD ORDERABLES Final Resul t Performing Organization Address City/[facility]/ZIP Co de Phone Number [facility] [address] [place] [address], [place] [phone] * Vitamin D 25 hydroxy (04/13/2025 6:37 AM EDT) [facility] Vit D, 25-Hydroxy 55.7 30.0 - 80.0 ng/mL LAB CHEMISTRY METHOD 04/13/2025 11:35 AM EDT [facility] Blood Venous blood specimen / Unknown Venipuncture / Unknown 04/13/2025 6:37 AM EDT 04/13/2025 9:14 AM EDT us Yung Rausch MD LAB BLOOD ORDERABLES Final Resul t [facility] [address] [place] [address], [place] [phone] * Vitamin B12 (04/13/2025 6:37 AM EDT) [facility] Vitamin B-12 771 250 - 900 pcg/mL LAB CHEMISTRY METHOD 04/13/2025 11:05 AM [facility] Blood Venous blood specimen / Unknown Venipuncture / Unknown 04/13/2025 6:37 AM EDT 04/13/2025 9:14 AM EDT us Yung Rausch MD LAB BLOOD ORDERABLES Final Resul t [facility] [address] [place] [address], [place] [phone] * (ABNORMAL) Comprehensive metabolic panel (04/13/2025 6:37 AM EDT) [facility] Sodium 138 133 - 145 mmol/L LAB CHEMISTRY METHOD 04/13/2025 10:41 AM [facility] Potassium 3.8 3.5 - 5.5 mmol/L LAB CHEMISTRY METHOD 04/13/2025 10:41 AM [facility] Chloride 104 96 - 110 mmol/L LAB CHEMISTRY METHOD 04/13/2025 10:41 AM [facility] CO2 24 21 - 32 mmol/L LAB CHEMISTRY METHOD 04/13/2025 10:41 AM [facility] Anion Gap 10 3 - 11 LAB CHEMISTRY METHOD 04/13/2025 10:41 AM [facility] Glucose 116(H) 70 - 100 mg/dL LAB CHEMISTRY METHOD 04/13/2025 10:41 AM [facility] BUN 20 5 - 25 mg/dL LAB CHEMISTRY METHOD 04/13/2025 10:41 AM [facility] Creatinine 1.04 0.70 - 1.30 mg/dL LAB CHEMISTRY METHOD 04/13/2025 10:41 AM [facility] eGFR 74 >=60 mL/min/1. 73m2 LAB CHEMISTRY METHOD 04/13/2025 10:41 AM [facility] Comment:Calculation based on the Chronic Kidney Disease Epidemiology Collaboration (CKD-EPI) equation refit without adjustment for race. BUN/Creatinine Ratio 19.2 LAB CHEMISTRY METHOD 04/13/2025 10:41 AM [facility] Calcium 8.8 8.5 - 10.5 mg/dL LAB CHEMISTRY METHOD 04/13/2025 10:41 AM [facility] AST (SGOT) 19 10 - 42 unit/L LAB CHEMISTRY METHOD 04/13/2025 10:41 AM [facility] ALT (SGPT) 41 10 - 60 unit/L LAB CHEMISTRY METHOD 04/13/2025 10:41 AM [facility] Alkaline Phosphatase 124(H) 42 - 121 unit/L LAB CHEMISTRY METHOD 04/13/2025 10:41 AM [facility] Total Protein 6.2 6.0 - 8.0 g/dL LAB CHEMISTRY METHOD 04/13/2025 10:41 AM [facility] Albumin 3.2 3.2 - 5.0 g/dL LAB CHEMISTRY METHOD 04/13/2025 10:41 AM [facility] Total Bilirubin 0.7 0.0 - 1.4 mg/dL LAB CHEMISTRY METHOD 04/13/2025 10:41 AM [facility] Blood Venous blood specimen / Unknown Venipuncture / Unknown 04/13/2025 6:37 AM EDT 04/13/2025 9:14 AM EDT us Yung Rausch MD LAB BLOOD ORDERABLES Final Resul t [facility] [address] [place] [address], [place] [phone] * (ABNORMAL) Complete blood count (04/13/2025 6:37 AM EDT) WBC 7.8 4.8 - 10.8 K/mcL LAB HEMETOLOGY METHOD 04/13/2025 9:54 AM [facility] RBC 4.40(L) 4.50 - 5.50 M/mcL LAB HEMETOLOGY METHOD 04/13/2025 9:54 AM [facility] Hemoglobin 11.6(L) 13.5 - 17.5 g/dL LAB HEMETOLOGY METHOD 04/13/2025 9:54 AM [facility] Hematocrit 37.9(L) 42.0 - 54.0 % LAB HEMETOLOGY METHOD 04/13/2025 9:54 AM [facility] MCV 86.9 79.0 - 98.0 FL LAB HEMETOLOGY METHOD 04/13/2025 9:54 AM [facility] MCH 26.6(L) 27.0 - 32.0 pcg LAB HEMETOLOGY METHOD 04/13/2025 9:54 AM [facility] MCHC 30.6(L) 32.0 - 37.0 g/dL LAB HEMETOLOGY METHOD 04/13/2025 9:54 AM [facility] RDW 15.4(H) 11.0 - 15.0 % LAB HEMETOLOGY METHOD 04/13/2025 9:54 AM [facility] Platelets 229 130 - 400 K/[facility] LAB HEMETOLOGY METHOD 04/13/2025 9:54 AM [facility] MPV 10.3 7.0 - 11.0 FL LAB HEMETOLOGY METHOD 04/13/2025 9:54 AM [facility] NRBC 0.0 <1.0 % LAB HEMETOLOGY METHOD 04/13/2025 9:54 AM [facility] NRBC Absolute 0.00 <0.10 K/mcL LAB HEMETOLOGY METHOD 04/13/2025 9:54 AM EDT [facility] Blood Venous blood specimen / Unknown Venipuncture / Unknown 04/13/2025 6:37 AM EDT 04/13/2025 9:14 AM EDT Yung Rausch MD LAB BLOOD ORDERABLES Final Resul t [facility] [address] [place] [address], documented in this encounter Visit Diagnoses Diagnosis Adult failure to thrive Chronic kidney disease, unspecified Elevation of levels of liver transaminase levels Vitamin D deficiency, unspecified documented in this encounter Care Teams Coper Hand Relationship Specialty Start Date End Date Yung Rausch MD [address] [place] [address] [address] [place] [address] PCP - General Geriatric Medicine 04/13/25 documented as of this encounter
--- OUTSIDE RECORDS SUMMARY | 2025-07-03 11:18 | XMS_ITS | Encounter Summary ---
Author Organization [facility] Address [address] [facility] [address] [place] [address] Phone Care Team Providers Care Heat Treating Furnace Tender Name Role Phone Cristina Florence MD Primary Care Provider Cristina Florence MD Unavailable [phone] Encounter Details Date Type Department Care Team ([facility] Contact Info) Description 08/25/2024 Procedure Pass [facility] [address] [place] [address] Social History Tobacco Use Types Packs/Day Years [...] Upcoming Encounters Date Type Department Care Team ([facility] Contact Info) Description 11/12/2025 10:00 AM EST Office Visit [facility] [address] [facility] [address] Floor, [address] [place] [address] Fallon Del Rosario DNP [address] [facility] [place], [address] [address] [email or web address] documented as of this encounter Visit Diagnoses Not on filedocumented in this encounter Care Teams Heat Treating Furnace Tender Relationship Specialty Start Date End Date Cristina Florence MD [address] [place] [phone] [email or web address] PCP - General 11/18/17 Cristina Florence MD [address] [place] [phone] [email or web address] Insurance Assigned Provider 02/19/2405/15 documented as of this encounter Additional Source Comments The information contained in this document represents components of the legal health record. It is not the complete legal health record.[facility]
== END 2025-07-03 10:43 | disposition home or self-care (01) ==
LOC: HO.HOS 10:06
PROVIDERS: Visit Provider Orthopaedic Surgery
DX: M20.021 Boutonniere deformity of right finger(s) (principal)
CPT/HCPCS: 99203

== ENCOUNTER → 2025-07-03 10:08 | Outpatient (BNV) | payer BC, SELFPAY | PROVIDERS: Visit Provider Radiology Diagnostic Radiology | DX: R22.31 Localized swelling, mass and lump, right upper limb (principal) | CPT/HCPCS: 73130 ==